=== PATIENT | female | born 1945 | race Caucasian/White ===

== ENCOUNTER 2018-07-30 16:07 | Inpatient (IN) | payer MEDICARE ==
[~2018-07-30] VITALS: Ht 157.5 cm; Wt 44.7 kg
[2018-07-30] MEDS ORDERED: SODIUM CHLORIDE 0.9% 500ML 500 ML IV STA (16:16)
[2018-07-30 16:31] LABS: BASOPHILS % 0.1 % (0.0-1.0); HEMATOCRIT 32.7 % (34.2-44.1); HEMOGLOBIN 10.8 g/dL (12.0-16.0); LYMPHOCYTES # (AUTO) 0.3 (1.0-3.2); MEAN CORPUSCULAR HEMOGLOBIN 26.6 pg (28-32); MEAN CORPUSCULAR VOLUME 80.5 fL (81-99); MONOCYTES # (AUTO) 0.5 (0.2-0.8); MONOCYTES % 5.3 % (4.4-11.3); NEUTROPHILS # (AUTO) 7.8 (2.1-6.9); NEUTROPHILS % 90.9 % (38.7-80.0); PLATELET COUNT 376 x10e3/uL (140-360); RED BLOOD COUNT 4.06 x10e6/uL (3.6-5.1); RED CELL DISTRIBUTION WIDTH 14.6 % (11.7-14.4)
[2018-07-30] MEDS ORDERED: SODIUM CHLORIDE 0.9% 1000ML 1,000 ML ONE (16:36)
[2018-07-30] MEDS ORDERED: ONDANSETRON ODT8 MG PO (16:40)
[2018-07-30] MEDS ORDERED: CILOSTAZOL100 MG PO ×2 (16:40→18:47)
[2018-07-30] MEDS ORDERED: LISINOPRIL10 MG PO (16:40)
[2018-07-30] MEDS ORDERED: TIZANIDINE HCL4 M1 PO (16:40)
[2018-07-30] MEDS ORDERED: TYLENOL WITH C1 EACH PO (16:40)
[2018-07-30] MEDS ORDERED: SIMVASTATIN20 MG PO (16:40)
[2018-07-30] MEDS ORDERED: ULTRAM50 MG PO (16:40)
[2018-07-30] MEDS ORDERED: ALENDRONATE SOD70 MG PO (16:40)
[2018-07-30] MEDS ORDERED: IBUPROFEN400 MG PO (16:40)
[2018-07-30] MEDS ORDERED: SODIUM CHLORIDE 0.9% 1000ML 1,000 ML IV STA (16:41)
--- NOTE | 2018-07-30 16:43 | NUR ---
PT DIAPER SOILED, PASTY GREEN DARK STOOL, FOUL SMELL NOTED. STOOL INTO LABIA AND VAGINAL VAULT. PT CLEANED THROUGHLY AND CLEAN DIAPER PLACED.
[2018-07-30 16:56] LABS: INR 0.96; PROTHROMBIN TIME 13.3 seconds (11.9-14.5)
[2018-07-30 16:57] LABS: PARTIAL THROMBOPLASTIN TIME 35.6 seconds (23.8-35.5)
[2018-07-30 16:59] LABS: ALANINE AMINOTRANSFERASE 15 IU/L (0-55); ALBUMIN 2.8 g/dL (3.5-5.0); ALBUMIN/GLOBULIN RATIO 0.7 (0.8-2.0); ALKALINE PHOSPHATASE 108 IU/L (40-150); ANION GAP 18.6 mmol/L (8-16); BLOOD UREA NITROGEN 16 mg/dL (7-26); BUN/CREATININE RATIO 19 (6-25); CALCIUM 10.6 mg/dL (8.4-10.2); CARBON DIOXIDE 28 mmol/L (22-29); CHLORIDE 91 mmol/L (98-107); CREATINE KINASE 22 IU/L (29-168); CREATININE, SERUM 0.86 mg/dL (0.57-1.11); EST GLOMERULAR FILTRATION RATE > 60 ML/MIN (60-); GLUCOSE 246 mg/dL (74-118); MAGNESIUM 1.6 MG/DL (1.3-2.1); POTASSIUM 3.6 mmol/L (3.5-5.1); SODIUM 134 mmol/L (136-145)
[2018-07-30 17:09] LABS: B-TYPE NATRIURETIC PEPTIDE2 1253.7 pg/mL (0-100)
[2018-07-30 17:19] LABS: THYROID STIMULATING HORMONE 0.652 uIU/mL (0.350-4.940)
[2018-07-30] MEDS ORDERED: MEROPENEM 1GM 100 ML IV ONE (17:30)
--- NOTE | 2018-07-30 17:35 | NUR ---
SCANT URINE RETURN; PLACE VERIFIED. MD AWARE. PER MD SALINAS TO STAY FOR ACCURATE OUTPUT R/O RENAL FAILURE. ALSO, NEED FOR UA SPECIMEN. STERILE PROCEDURE PER PROTOCOL WITH 2 RNS.
[2018-07-30 17:55] LABS: MONOCYTES % (MANUAL) 7 % (3.4-9.0); NEUTROPHILS % (MANUAL) 92 % (40-74); PROMYELOCYTES % (MANUAL) 1 % (0-0)
[2018-07-30 17:56] LABS: HYPOCHROMASIA SLIGHT
[2018-07-30 17:57] LABS: PLATELET ESTIMATE ADEQUATE; PLATELET MORPHOLOGY COMMENT FEW LARGE
[2018-07-30] MEDS ORDERED: VANCOMYCIN 1GM/NS 250 ML 250 ML IV ONE (18:00)
[2018-07-30 18:18] LABS: BILIRUBIN,URINE NEGATIVE (NEGATIVE); CLARITY,URINE CLEAR (CLEAR); COLOR,URINE YELLOW (YELLOW); KETONES,URINE NEGATIVE (NEGATIVE); LEUKOCYTE ESTERASE ,URINE NEGATIVE (NEGATIVE); NITRITE,URINE NEGATIVE (NEGATIVE); PROTEIN,URINE DIPSTICK 1+ (NEGATIVE); URINE UROBILINOGEN 0.2 mg/dL (0.2 - 1)
--- NOTE | 2018-07-30 18:18 | Diagnostic Imaging Report ---
A single frontal view of the chest. HISTORY: Altered mental status, high blood pressure COMPARISON: None available. DISCUSSION: Portable technique, limits sensitivity of the exam. Overlying monitoring leads and tubing. Tubes/Lines: None Lungs and pleura: Diffuse heterogeneously increased interstitial and airspace opacities. Trace blunting the left costophrenic angle and bilateral lower thoraces mild confluent opacities. Heart and mediastinum: The cardiac silhouette and central pulmonary vasculature appear mildly enlarged. Bones and soft tissues: Appear unremarkable, given this limited exam. IMPRESSION: Diffuse bilateral increased interstitial and airspace opacities, considerations include moderate pulmonary edema versus multifocal pneumonia. Signed by: Dr. Pradeep Alfaro D.O., M.M.M. on 07/30/2018 6:15 PM
--- NOTE | 2018-07-30 18:36 | Diagnostic Imaging Report ---
History:Patient very altered, confused. Comparison studies:None Technique: Axial images were obtained from the skull base to the vertex. Coronal and sagittal images reconstructed from the axial data. Intravenous contrast: None Dose modulation, iterative reconstruction, and/or weight based adjustment of the mA/kV was utilized to reduce the radiation dose to as low as reasonably achievable. Findings: Scalp/skull: No abnormalities. Extra-axial spaces: No masses. No fluid collections. Mild dural thickening at the right frontoparietal convexity.. Brain sulci: Mildly prominent. Ventricles: Moderately compensatory dilatation. No hydrocephalus. Parenchyma: Scattered and confluent hypodensities in the supratentorial white matter are small vessel ischemic changes. No masses, hemorrhage, acute or chronic cortical vascular insults. Sellar/suprasellar region: No abnormalities. Craniocervical junction: Patent foramen magnum. No Chiari one malformation. Incidental findings: Atherosclerotic calcifications in the carotid siphons . Impression: No acute abnormalities. Chronic findings: 1. Moderate central volume loss. 2. Moderate supratentorial white matter small vessel ischemic changes. Signed by: DR Kaden Aragon M.D. on 07/30/2018 6:33 PM
[2018-07-30 18:40] LABS: BACTERIA,URINE MODERATE /HPF; EPITHELIAL CELLS,URINE MODERATE /LPF; RBC,URINE 21-50 /HPF (0-5); TRANSITIONAL EPI CELLS,URINE FEW
[2018-07-30] MEDS ORDERED: ACETAMINOPHEN325 M1 PO (18:47)
[2018-07-30] MEDS ORDERED: VITAMIN D32000 UNI1 PO (18:47)
[2018-07-30] MEDS ORDERED: METOPROLOL TART50 MG PO (18:47)
[2018-07-30] MEDS ORDERED: MESTINON60 MG PO (18:47)
[2018-07-30] MEDS ORDERED: CYPROHEPTADINE H4 MG (18:47)
[2018-07-30] MEDS ORDERED: SODIUM CHLORIDE 0.9% 1000ML 1,000 ML IV SCH (18:55)
[2018-07-30] MEDS ORDERED: VANCOMYCIN HCL 1GM/NS 250 ML BAG IV SCH (19:00)
[2018-07-30] MEDS ORDERED: FUROSEMIDE INJ 10 MG/ML 4 ML VIAL IV NR (19:00)
--- NOTE | 2018-07-30 19:21 | NUR ---
PT CLEANED AGAIN OF DARK,SLIGHTLY FORMED STOOL. LASIX GIVEN AND VANCOMYCIN INFUSING WITH NO PROBLEM. DAUGHTER AT [facility]
--- OUTSIDE RECORDS SUMMARY | 2018-07-30 19:22 | XMS REPORT | Continuity of Care Document ---
Author Author [facility] Address [address] [place] [address] ;ext= Care Team Providers Care Abstract Maker Name Role Phone AUBRIE RONDON [facility] Admission Diagnosis Code Admission Diagnosis Date 13064457 Weakness of face muscles Social History Element Description Code Description Smoking Status Code System Start Date End Date Smoking Status 280127438 Never smoker SNOMED-CT Problems Code Code System Problem Name Start Date End Date Status 143903532 SNOMED-CT Weakness of right facial muscle 04/19/2018 Active General Weakness 2018 Active 770207501 SNOMED-CT Shoulder strain 09/23/2016 Active 55644861 SNOMED-CT Shoulder pain 09/23/2016 Active Medications RxNorm Medication Dose Route Instructions Indications Start Date End Date Status 134329 Acetaminophen 300 MG / Codeine Phosphate 30 MG Oral Tablet 1 tablet oral orally every 6 hours as needed. pain Active 2418 Cholecalciferol 2000 unit oral orally every day Active 897785 cilostazol 100 MG Oral Tablet 100 milligram oral orally 2 times per day (administer at least 30 minutes before or 2 hours after breakfast and dinner) Active 249857 Lisinopril 20 MG Oral Tablet 20 milligram oral orally every day Active 43375 meloxicam 7.5 milligram oral orally every day Active 16895 Ondansetron 4 milligram oral orally every 6 to 8 hours as needed. nausea and vomiting Active One-A-Day Calcium Plus Chewable Tablet 1 tablet oral orally every day Active SIMVASTATIN 20 MG ORAL ORAL EVERY NIGHT AT BED TIME Active Tizanidine Oral 4 milligram oral orally 3 times per day as needed. muscle spasticity Active 209200 tramadol hydrochloride 50 MG Oral Tablet 50 milligram oral orally every 8 hours as needed. (as needed for pain) No Longer Active Allergies Code Code System Allergy Substance Type Reaction Severity Start Date End Date Status RXNorm No Known Drug Allergies Drug allergy Unknown 09/23/2016 04/19/2018 Inactive RXNorm No Known Allergies Drug allergy Active Results Laboratory Results Order: UA URINALYSIS WITH MICROSCOPY Specimen Source: URINE SPECIMENS Body Site: [facility] Test Result Flag Range Unit Date 57786 1Color:Type:Pt:Urine:Nom LT. YELLOW 04/19/2018 14:38 5767-9 1Appearance:Aper:Pt:Urine:Nom CLEAR 04/19/2018 14:38 2349-9 1Glucose:ACnc:Pt:Urine:Ord NEGATIVE NEGATIVE 04/19/2018 14:38 5770-3 1Bilirubin:ACnc:Pt:Urine:Ord:Test strip NEGATIVE NEGATIVE 04/19/2018 14:38 2514-8 1Ketones:ACnc:Pt:Urine:Ord:Test strip NEGATIVE NEGATIVE 04/19/2018 14:38 5811-5 1Specific gravity:Rden:Pt:Urine:Qn:Test strip 1.010 A 1.005-1.030 04/19/2018 14:38 5794-3 1Hemoglobin:ACnc:Pt:Urine:Ord:Test strip TRACE-INTACT A NEGATIVE 04/19/2018 14:38 5803-2 1pH:LsCnc:Pt:Urine:Qn:Test strip 6.0 A 4.5-8.0 04/19/2018 14:38 98557-3 1Protein:ACnc:Pt:Urine:Ord:Test strip NEGATIVE NEGATIVE 04/19/2018 14:38 5818-0 1Urobilinogen:ACnc:Pt:Urine:Ord:Test strip 0.2 0.2 04/19/2018 14:38 5802-4 1Nitrite:ACnc:Pt:Urine:Ord:Test strip NEGATIVE NEGATIVE 04/19/2018 14:38 5799-2 1Leukocyte esterase:ACnc:Pt:Urine:Ord:Test strip NEGATIVE NEGATIVE 04/19/2018 14:38 5821-4 1Leukocytes:Naric:Pt:Urine sed:Qn:Microscopy.light.HPF 2-5 A 0-5 04/19/2018 14:38 52900-3 1Erythrocytes:Naric:Pt:Urine sed:Qn:Microscopy.light.HPF 0-3 A 0-5 04/19/2018 14:38 08584-1 1Epithelial cells.squamous:Naric:Pt:Urine sed:Qn:Microscopy.light.HPF 0-5 A 0-10 04/19/2018 14:38 8247-9 1Mucus:ACnc:Pt:Urine sed:Ord:Microscopy.light Trace A None Seen 04/19/2018 14:38 5769-5 1Bacteria:Naric:Pt:Urine sed:Qn:Microscopy.light.HPF Trace None Seen,Trace 04/19/2018 14:38 5782-8 1Crystals:Prid:Pt:Urine sed:Nom:Microscopy.light None Seen None Seen 04/19/2018 14:38 * Performing Lab Footnotes:* [address] [place] [address] [id number] - [place] [address] LAMONT - : DIRECTOR MARGARET PADILLA Order: CBC PLATELET AUTO DIFF Specimen Source: BLOOD Body Site: LOINC Test Result Flag Range Unit Date 40848-5 1Leukocytes^^corrected for nucleated erythrocytes:NCnc:Pt:Bld:Qn:Automated count 6.99 4.80-10.80 10^3/ul 04/19/2018 14:16 789-8 1Erythrocytes:NCnc:Pt:Bld:Qn:Automated count 3.07 L 4.20-5.40 10^6/ul 04/19/2018 14:16 718-7 1Hemoglobin:MCnc:Pt:Bld:Qn 8.7 L 12.0-14.0 gm/dl 04/19/2018 14:16 4544-3 1Hematocrit:VFr:Pt:Bld:Qn:Automated count 26 L 37.0-47.0 % 04/19/2018 14:16 787-2 1Erythrocyte mean corpuscular volume:EntVol:Pt:RBC:Qn:Automated count 84.7 81.0-99.0 fL 04/19/2018 14:16 785-6 1Erythrocyte mean corpuscular hemoglobin:EntMass:Pt:RBC:Qn:Automated count 28.3 27.0-31.0 pg 04/19/2018 14:16 786-4 1Erythrocyte mean corpuscular hemoglobin concentration:MCnc:Pt:RBC:Qn:Automated count 33.5 33.0-37.0 gm/dl 04/19/2018 14:16 788-0 1Erythrocyte distribution width:Ratio:Pt:RBC:Qn:Automated count 14.5 11.5-14.5 % 04/19/2018 14:16 777-3 1Platelets:NCnc:Pt:Bld:Qn:Automated count 429 H 130-400 10^3/ul 04/19/2018 14:16 48859-4 1Platelet mean volume:EntVol:Pt:Bld:Qn:Automated count 8.0 A 7.4-10.4 fL 04/19/2018 14:16 Note: 'NOT MEASURED' RESULTS ARE DISPLAYED WHEN THE INSTRUMENT HAS A SUPPRESSED OR UNREPORTABLE RESULT. THIS WILL MOST OFTEN HAPPEN WITH THE MPV WHEN THERE IS AN ABNORMAL PLATELET DISTRIBUTION DUE TO A CRITICAL LOW VALUE OR PLATELET CLUMPING. THE RDW MAY BE SUPPRESSED IF THERE ARE MULTIPLE PEAKS PRESENT ON THE RBC HISTOGRAM. IN THIS CASE, A MANUAL REVIEW OF THE SLIDE WILL BE PERFORMED, AND RBC MORPHOLOGY WILL BE NOTED ON THE REPORT. 770-8 1Neutrophils/100 leukocytes:NFr:Pt:Bld:Qn:Automated count 71.7 42.0-75.0 % 04/19/2018 14:16 736-9 1Lymphocytes/100 leukocytes:NFr:Pt:Bld:Qn:Automated count 15.6 13.0-42.0 % 04/19/2018 14:16 5905-5 1Monocytes/100 leukocytes:NFr:Pt:Bld:Qn:Automated count 10.9 4.0-14.0 % 04/19/2018 14:16 713-8 1Eosinophils/100 leukocytes:NFr:Pt:Bld:Qn:Automated count 0.4 L 1.0-5.0 % 04/19/2018 14:16 706-2 1Basophils/100 leukocytes:NFr:Pt:Bld:Qn:Automated count 0.3 0.0-3.0 % 04/19/2018 14:16 1IG% 1.1 H 0.0-0.4 % 04/19/2018 14:16 * Performing Lab Footnotes:* [facility] [id number] [address] - : DIRECTOR MARGARET PADILLA Order: CMP COMPREHENSIVE METABOLIC PANEL Specimen Source: BLOOD Body Site: LOINC Test Result Flag Range Unit Date 1Glucose 104 75-110 mg/dl 04/19/2018 14:16 1BUN 19 H 6.0-17.0 mg/dl 04/19/2018 14:16 1Creatinine 1.2 0.4-1.2 mg/dl 04/19/2018 14:16 1Sodium 128 L 137-145 mmol/l 04/19/2018 14:16 1Potassium 4.1 3.5-5.0 mmol/l 04/19/2018 14:16 1Chloride 93 L 98-107 mmol/l 04/19/2018 14:16 1CO2 30 22-30 mmol/l 04/19/2018 14:16 1Calcium 9.1 8.4-10.2 mg/dl 04/19/2018 14:16 1T Protein 6.9 5.1-8.7 gm/dl 04/19/2018 14:16 1Albumin 2.8 L 3.5-4.6 gm/dl 04/19/2018 14:16 1A/G Ratio 0.7 L 1.1-2.2 % 04/19/2018 14:16 1AST (SGOT) 15 11-36 U/L 04/19/2018 14:16 1ALT (SGPT) 19 11-40 U/L 04/19/2018 14:16 1Alkaline Phos 95 47-114 U/L 04/19/2018 14:16 1Total Bilirubin 0.4 0.2-1.2 mg/dl 04/19/2018 14:16 1Globulin 4.1 H 2.3-3.5 gm/dl 04/19/2018 14:16 1Calcium, Corrected 10.1 8.4-10.2 mg/dl 04/19/2018 14:16 Note: Various formulas exist for corrected serum calcium results, each yielding different values. This corrected result was based on the formula: Corrected Calcium=SerumCalcium + [0.8 * ( 4 - SerumAlbumin)] 1EGFR if 57 mL/min/1.73m^2 04/19/2018 14:16 1EGFR if Non- 47 mL/min/1.73m^2 04/19/2018 14:16 Note: Estimated Glomerular Filtration Rate (eGFR) Reference Intervals Decision Points for 18 years and older and average body mass: >=60 Does not exclude kidney disease. 30 - 59 Suggests moderate chronic kidney disease and indicates the need for further investigation including assessment of proteinuria and cardiovascular factors. < 30 Usually indicates a need for referral for assessment and management of chronic kidney failure. * Performing Lab Footnotes:* [address] [place] [address] - [id number] - [address] [place] [address] LAMONT - : DIRECTOR MARGARET PADILLA Order: PRO BNP B - NATRIURETIC PEPTIDE Specimen Source: BLOOD Body Site: LOINC Test Result Flag Range Unit Date 1Pro-BNP(B-Peptide) 671 H 0-125 pg/ml 04/19/2018 14:16 * Performing Lab Footnotes:* [address] [place] [address] [id number] - [address] [place] [address] LAMONT Molina MD: DIRECTOR MARGARET PADILLA Order: PROTIME PT INR Specimen Source: BLOOD Body Site: LOINC Test Result Flag Range Unit Date 1Protime 10.3 9.0-11.8 seconds 04/19/2018 14:16 6301-6 1Coagulation tissue factor induced.INR:RelTime:Pt:PPP:Qn:Coag 1 0.9-1.1 04/19/2018 14:16 Note: INR results are intended ONLY to monitor Oral Anticoagulant therapy in stablized patients. The INR Therapeutic Range is 2.0 - 3.0 Patients with a mechanical heart, the INR Range is 2.5 - 3.5 * Performing Lab Footnotes:* [address] [place] [address] [id number] - [address] [place] [address] LAMONT Molina MD: DIRECTOR MARGARET PADILLA Order: PTT PARTIAL THROMBOPLASTIN TM Specimen Source: BLOOD Body Site: LOINC Test Result Flag Range Unit Date 1aPTT 31.7 25.3-35.7 seconds 04/19/2018 14:16 * Performing Lab Footnotes:* [facility] [id number] [place] [address] LAMONT Molina MD: DIRECTOR MARGARET PADILLA Order: TROPONIN I QUANTITATIVE Specimen Source: BLOOD Body Site: LOINC Test Result Flag Range Unit Date 1Troponin-I <0.015 0.000-0.034 ng/ml 04/19/2018 14:16 Note: The 99th Percentile URL is 0.045 ng/mL for the Siemens Douglas Troponin I. The Joint Society of Cardiology/[place] College of Cardiology (ESC/ACC) and the National Academy of Clinical Biochemistry Standards of Laboratory Practices (NACB) recommends that the diagnosis of AMI includes the presence of clinical history suggestive of Acute Coronary Syndrome (ACS) and a maximum concentration of cardiac troponin exceeding the 99th percentile of a normal reference population [upper reference limit (URL)] on at least one occasion during the first 24 hours after the clinical event. * Performing Lab Footnotes:* [address] [place], [place] [id number] [place] [address] LAMONT Molina MD: DIRECTOR MARGARET PADILLA Radiology Results Order: [id number] CT HEAD W/O CONTRAST* Exam Completion Date:04/19/2018 13:50 CT HEAD WITHOUT CONTRAST:DATE OF EXAM: 04/19/2018INDICATION: Weakness of face mus clesNoncontrast CT head was performed. Dose reduction technique was employed usi ngautomated exposure control and adjustment of mA and/or kV according to patient size. Total DLP 856 mGy-cm.FINDINGS:No intracranial hemorrhage, mass effect or midline shift is identified. Corticalatrophy is noted with associated mild compe nsatory ventricular dilatation. Thereis no obstructive hydrocephalus. A small ch ronic appearing lacunar infarct inthe anterior limb right internal capsule is in cidentally noted. There are nodefinite acute ischemic changes identified. If sym ptoms persist, considerfollowup CT or MRI.There is confluent hypodensity in the periventricular and subcortical whitematter which is nonspecific but may reflect changes of chronic microvasculardisease.The visualized portions of the mastoids, paranasal sinuses and orbits show nosignificant abnormality. Hyperostosis fron talis interna may account for thefindings on bone scan.IMPRESSION:1. No acute in tracranial abnormality.2. Atrophic changes as noted with probable changes of chr onic microvasculardisease in the white matter.3. Small chronic appearing lacunar infarct in the right internal capsule.This final report was electronically sign ed by Dr Lucinda Baker MD 04/19/20182:16 PMDictated By: LUCINDA BAKERDate: 04/19/2018 14:16 Order: [id number] XR CHEST AP/PA 1 VIEW* Exam Completion Date:04/19/2018 13:50 Portable chest April 19, 2018 at 1416 hrs. History: Altered mental statusCompa red to 2018. Subsegmental atelectasis is again noted in theleft lung base. The lungs otherwise appear clear. Cardiac size is within normallimits. Th ere are no acute bony abnormalities.Impression: Minimal left basilar atelectasis .This final report was electronically signed by Dr Lucinda Baker MD 04/19/20183 :27 PMDictated By: LUCINDA BAKERDate: 04/19/2018 15:27 Vital Signs Vitals Value Date Pulse Rate 95 (beats)/min 04/19/2018 Respiratory Rate 19 (breaths)/min 04/19/2018 O2% BldC Oximetry 93 % 04/19/2018 BP Systolic 127 mmHg 04/19/2018 BP Diastolic 55 mmHg 04/19/2018 Body Temperature 98.6 F 04/19/2018 Height 62 in 04/19/2018 Weight Measured 115 lbs 04/19/2018 BSA (Body Surface Area) 1.58076 m2 04/19/2018 BMI (Body Mass Index) 21.1 kg/m2 04/19/2018 Advance Directives PT HAS NEITHER Directive Type Effective Date Email Marketer Notes Supporting Document Name Address Phone No Directive Type specified 06/03/2012 21:27 Not Specified Not Specified Not Specified None No Patient does NOT have Living Will Directive Type Effective Date Email Marketer Notes Supporting Document Name Address Phone No Directive Type specified 08/27/2014 08:12 Not Specified Not Specified Not Specified None No No Directive Type specified 08/27/2014 08:12 Not Specified Not Specified Not Specified None No Patient HAS Living Will Directive Type Effective Date Email Marketer Notes Supporting Document Name Address Phone No Directive Type specified 12/29/2017 09:53 Not Specified Not Specified Not Specified None No Family History * No Data Reported Plan of Care * No data in the system Procedures Code Code System Procedure Name Target Site Date of Procedure XR CHEST AP/PA 1 VIEW 04/19/2018 15:34 CT HEAD W/O CONTRAST 04/19/2018 14:22 Encounters Date Code Diagnosis Status (ICD10) - O65114 FACIAL WEAKNESS Active Immunizations Vaccine Code Code System Vaccine Name Date Status 135 CVX influenza, high dose seasonal, preservative-free 01/04/2018 Completed 133 CVX pneumococcal conjugate vaccine, 13 valent 01/15/2016 Completed Functional Status * No data in the system Hospital Discharge Instructions * No data in the system
--- OUTSIDE RECORDS SUMMARY | 2018-07-30 19:22 | XMS REPORT | Continuity of Care Document ---
Author Author [facility] Address [address] [place] [address] ;ext= Care Team Providers Care Flight Control Specialist Name Role Phone FRANCO VAZQUEZ Ad[facility] FRANCO VAZQUEZ [facility] Admission Diagnosis Code Admission Diagnosis Date 342697560 Low back pain Social History Element Description Code Description Smoking Status Code System Start Date End Date Smoking Status [id number] Heavy tobacco smoker SNOMED-CT Problems Code Code System Problem Name Start Date End Date Status 853072612 SNOMED-CT Weakness of right facial muscle 04/19/2018 Active General Weakness 2018 Active 172937650 SNOMED-CT Shoulder strain 09/23/2016 Active 82482502 SNOMED-CT Shoulder pain 09/23/2016 Active Medications RxNorm Medication Dose Route Instructions Indications Start Date End Date Status 106577 Acetaminophen 300 MG / Codeine Phosphate 30 MG Oral Tablet 1 tablet oral orally every 6 hours as needed. pain Active 2418 Cholecalciferol 2000 unit oral orally every day Active 302643 cilostazol 100 MG Oral Tablet 100 milligram oral orally 2 times per day (administer at least 30 minutes before or 2 hours after breakfast and dinner) Active 607423 Lisinopril 20 MG Oral Tablet 20 milligram oral orally every day Active 12635 meloxicam 7.5 milligram oral orally every day Active 33275 Ondansetron 4 milligram oral orally every 6 to 8 hours as needed. nausea and vomiting Active One-A-Day Calcium Plus Chewable Tablet 1 tablet oral orally every day Active SIMVASTATIN 20 MG ORAL ORAL EVERY NIGHT AT BED TIME Active Tizanidine Oral 4 milligram oral orally 3 times per day as needed. muscle spasticity Active Allergies Code Code System Allergy Substance Type Reaction Severity Start Date End Date Status RXNorm No Known Drug Allergies Drug allergy Unknown 09/23/2016 04/19/2018 Inactive RXNorm No Known Allergies Drug allergy Active Results Radiology Results Order: [id number] NM BONE SCAN WHOLE BODY* Exam Completion Date:04/19/2018 13:30 Whole body bone scan:History: Low back painA whole-body bone scan was performed following intravenous injection of 26.0 mCiof technetium 99m MDP.There is bandli ke increased activity in the mid lumbar region corresponding francisco L3 compression fracture noted on plain films dated April 05, 2018.Increased activity is pres ent in the left humeral head. Review of the chestx-ray from 2018 noel ws lucency in the medial aspect of the lefthumeral head. The possibility of neop lasm is not excluded.There is increased activity noted in the frontal calvarium which appears tocorrespond to hyperostosis frontalis interna when correlated wit h CT head fromthe same day. Slightly increased activity in the right hip may ref lectdegenerative changes but can be correlated with plain films.Physiologic acti vity is present in the kidneys and bladder.Impression:1. Compression fracture of L3 corresponding to findings on recent lumbar spineexamination.2. Activity in t he left humeral head with asymmetric lucency noted on plain filmexamination. Adryan plasm is not excluded. Consider followup MRI of the shoulderwith attention to th e humerus.3. Other findings as detailed above.This final report was electronical ly signed by Dr Lucinda Hartley MD 04/19/20184:29 PMDictated By: LUCINDA HARTLEY Date: 04/19/2018 16:29 Order: [id number] XR LUMBAR SPINE (AP/LATERAL)* Exam Completion Date:04/19/2018 13:23 Lumbar spine AP lateral, 3 views:History: Low back painAP, lateral and spot late ral views were obtained. Comparison is made to 2018.There is a stable compression fracture of the L3 vertebral body. No newcompression fracture is id entified. There is stable grade 1 spondylolisthesis atL4-5 again noted. There is generalized osteopenia. A very mild levoscoliosis isagain present. Findings are stable compared to the recent examination.Impression: No significant interval c hange.This final report was electronically [place] [address]:56 AMDictated By: LUCINDA HARTLEYDate: 04/20/2018 07:56 Vital Signs * No data in the system Advance Directives PT HAS NEITHER Directive Type Effective Date Home Paraprofessional Notes Supporting Document Name Address Phone No Directive Type specified 06/03/2012 21:27 Not Specified Not Specified Not Specified None No Patient does NOT have Living Will Directive Type Effective Date Home Paraprofessional Notes Supporting Document Name Address Phone No Directive Type specified 08/27/2014 08:12 Not Specified Not Specified Not Specified None No No Directive Type specified 08/27/2014 08:12 Not Specified Not Specified Not Specified None No Patient HAS Living Will Directive Type Effective Date Home Paraprofessional Notes Supporting Document Name Address Phone No Directive Type specified 12/29/2017 09:53 Not Specified Not Specified Not Specified None No Family History * No Data Reported Plan of Care * No data in the system Procedures Code Code System Procedure Name Target Site Date of Procedure XR LUMBAR SPINE (AP/LATERAL) 04/20/2018 08:02 NM BONE SCAN WHOLE BODY 04/19/2018 16:35 Encounters Date Code Diagnosis Status (ICD10) - M545 LOW BACK PAIN Active Immunizations Vaccine Code Code System Vaccine Name Date Status 135 CVX influenza, high dose seasonal, preservative-free 01/04/2018 Completed 133 CVX pneumococcal conjugate vaccine, 13 valent 01/15/2016 Completed Functional Status * No data in the system Hospital Discharge Instructions * No data in the system
--- OUTSIDE RECORDS SUMMARY | 2018-07-30 19:22 | XMS REPORT | Continuity of Care Document ---
Author Author [facility] Address [address] [place] [address] ;ext= Care Team Providers Care Cafe Assistant Name Role Phone FRANCO VAZQUEZ Admyosis FRANCO VAZQUEZ [facility] Admission Diagnosis Code Admission Diagnosis Date [id number] Closed fracture lumbar vertebra, wedge Social History Element Description Code Description Smoking Status Code System Start Date End Date Smoking Status [id number] Former smoker SNOMED-CT 03/2018 Problems Code Code System Problem Name Start Date End Date Status 481059972 SNOMED-CT Weakness of right facial muscle 04/19/2018 Active General Weakness 2018 Active 382975487 SNOMED-CT Anemia 2019 Active 33521194 SNOMED-CT Nausea and vomiting 02/2018 Active 098698480 SNOMED-CT Backache 2018 Active 966151363 SNOMED-CT Shoulder strain 09/23/2016 Active 10396277 SNOMED-CT Shoulder pain 09/23/2016 Active 1342631 SNOMED-CT Arthritis Unknown Active 68727179 SNOMED-CT Hypertensive disorder Unknown Active Medications RxNorm Medication Dose Route Instructions Indications Start Date End Date Status 2418 Cholecalciferol 2000 unit oral orally every day Active 305076 cilostazol 100 MG Oral Tablet 100 milligram oral orally 2 times per day (administer at least 30 minutes before or 2 hours after breakfast and dinner) Active Iron oral orally every day Active 509752 Lisinopril 20 MG Oral Tablet 20 milligram oral orally every day Active SIMVASTATIN 20 MG ORAL ORAL EVERY NIGHT AT BED TIME Active Allergies Code Code System Allergy Substance Type Reaction Severity Start Date End Date Status RXNorm No Known Drug Allergies Drug allergy Unknown 09/23/2016 04/19/2018 Inactive RXNorm No Known Allergies Drug allergy Active Results Laboratory Results Order: BMP BASIC METABOLIC PANEL Specimen Source: BLOOD Body Site: [facility] Test Result Flag Range Unit Date 1Glucose 119 H 75-110 mg/dl 05/04/2018 09:16 1BUN 34 H 6.0-17.0 mg/dl 05/04/2018 09:16 1Creatinine 1.3 H 0.4-1.2 mg/dl 05/04/2018 09:16 1Sodium 131 L 137-145 mmol/l 05/04/2018 09:16 1Potassium 4.5 3.5-5.0 mmol/l 05/04/2018 09:16 1Chloride 92 L 98-107 mmol/l 05/04/2018 09:16 1CO2 30 22-30 mmol/l 05/04/2018 09:16 1Calcium 9.8 8.4-10.2 mg/dl 05/04/2018 09:16 1EGFR if 52 mL/min/1.73m^2 05/04/2018 09:16 1EGFR if Non- 43 mL/min/1.73m^2 05/04/2018 09:16 Note: Estimated Glomerular Filtration Rate (eGFR) Reference [...] chronic kidney failure. * Performing Lab Footnotes:* [address] [place] [address] - [id number] - [facility] [address] - : DIRECTOR MARGARET PADILLA Order: CBC PLATELET AUTO DIFF Specimen Source: BLOOD Body Site: [facility] Test Result Flag Range Unit Date 79344-8 1Leukocytes^^corrected for nucleated erythrocytes:NCnc:Pt:Bld:Qn:Automated count 6.24 4.80-10.80 10^3/ul 05/04/2018 09:16 789-8 1Erythrocytes:NCnc:Pt:Bld:Qn:Automated count 2.91 L 4.20-5.40 10^6/ul 05/04/2018 09:16 718-7 1Hemoglobin:MCnc:Pt:Bld:Qn 8 L 12.0-14.0 gm/dl 05/04/2018 09:16 4544-3 1Hematocrit:VFr:Pt:Bld:Qn:Automated count 24.9 L 37.0-47.0 % 05/04/2018 09:16 787-2 1Erythrocyte mean corpuscular volume:EntVol:Pt:RBC:Qn:Automated count 85.6 81.0-99.0 fL 05/04/2018 09:16 785-6 1Erythrocyte mean corpuscular hemoglobin:EntMass:Pt:RBC:Qn:Automated count 27.5 27.0-31.0 pg 05/04/2018 09:16 786-4 1Erythrocyte mean corpuscular hemoglobin concentration:MCnc:Pt:RBC:Qn:Automated count 32.1 L 33.0-37.0 gm/dl 05/04/2018 09:16 788-0 1Erythrocyte distribution width:Ratio:Pt:RBC:Qn:Automated count 14.3 11.5-14.5 % 05/04/2018 09:16 777-3 1Platelets:NCnc:Pt:Bld:Qn:Automated count 412 H 130-400 10^3/ul 05/04/2018 09:16 91425-7 1Platelet mean volume:EntVol:Pt:Bld:Qn:Automated count 8.0 A 7.4-10.4 fL 05/04/2018 09:16 Note: 'NOT MEASURED' RESULTS ARE DISPLAYED WHEN [...] ON THE REPORT. 770-8 1Neutrophils/100 leukocytes:NFr:Pt:Bld:Qn:Automated count 75 42.0-75.0 % 05/04/2018 09:16 736-9 1Lymphocytes/100 leukocytes:NFr:Pt:Bld:Qn:Automated count 12.7 L 13.0-42.0 % 05/04/2018 09:16 5905-5 1Monocytes/100 leukocytes:NFr:Pt:Bld:Qn:Automated count 10.1 4.0-14.0 % 05/04/2018 09:16 713-8 1Eosinophils/100 leukocytes:NFr:Pt:Bld:Qn:Automated count 1.1 1.0-5.0 % 05/04/2018 09:16 706-2 1Basophils/100 leukocytes:NFr:Pt:Bld:Qn:Automated count 0.3 0.0-3.0 % 05/04/2018 09:16 1IG% 0.8 H 0.0-0.4 % 05/04/2018 09:16 * Performing Lab Footnotes:* [address] [place] [address] - [id number] - [address] [place] [address] - : DIRECTOR MARGARET PADILLA Order: CBC - HEMOGRAM ONLY Specimen Source: BLOOD Body Site: [facility] Test Result Flag Range Unit Date 1Leukocytes^^corrected for nucleated erythrocytes:NCnc:Pt:Bld:Qn:Automated count 6.62 4.80-10.80 10^3/ul 05/02/2018 10:20 789-8 1Erythrocytes:NCnc:Pt:Bld:Qn:Automated count 2.98 L 4.20-5.40 10^6/ul 05/02/2018 10:20 718-7 1Hemoglobin:MCnc:Pt:Bld:Qn 8.2 L 12.0-14.0 gm/dl 05/02/2018 10:20 4544-3 1Hematocrit:VFr:Pt:Bld:Qn:Automated count 25.5 L 37.0-47.0 % 05/02/2018 10:20 787-2 1Erythrocyte mean corpuscular volume:EntVol:Pt:RBC:Qn:Automated count 85.6 81.0-99.0 fL 05/02/2018 10:20 785-6 1Erythrocyte mean corpuscular hemoglobin:EntMass:Pt:RBC:Qn:Automated count 27.5 27.0-31.0 pg 05/02/2018 10:20 786-4 1Erythrocyte mean corpuscular hemoglobin concentration:MCnc:Pt:RBC:Qn:Automated count 32.2 L 33.0-37.0 gm/dl 05/02/2018 10:20 788-0 1Erythrocyte distribution width:Ratio:Pt:RBC:Qn:Automated count 14.3 11.5-14.5 % 05/02/2018 10:20 777-3 1Platelets:NCnc:Pt:Bld:Qn:Automated count 462 H 130-400 10^3/ul 05/02/2018 10:20 18825-0 1Platelet mean volume:EntVol:Pt:Bld:Qn:Automated count 8.5 A 7.4-10.4 fL 05/02/2018 10:20 Note: 'NOT MEASURED' RESULTS ARE DISPLAYED WHEN [...] MORPHOLOGY WILL BE NOTED ON THE REPORT. * Performing Lab Footnotes:* [facility] - [id number] - [address] [place] [address] [place] - MD: DIRECTOR MARGARET PADILLA Order: CMP COMPREHENSIVE METABOLIC PANEL Specimen Source: BLOOD Body Site: [facility] Test Result Flag Range Unit Date 1Glucose 128 H 74-106 mg/dl 05/02/2018 10:20 1BUN 30 H 7.0-18.0 mg/dl 05/02/2018 10:20 1Creatinine 1.3 0.5-1.3 mg/dl 05/02/2018 10:20 1Sodium 127 L 137-145 mmol/l 05/02/2018 10:20 1Potassium 4.2 3.5-5.1 mmol/l 05/02/2018 10:20 1Chloride 88 L 98-107 mmol/l 05/02/2018 10:20 1CO2 31 21-32 mmol/l 05/02/2018 10:20 1Calcium 9.6 8.5-10.1 mg/dl 05/02/2018 10:20 1T Protein 6.5 6.4-8.2 gm/dl 05/02/2018 10:20 1Albumin 2.7 L 3.4-5.0 gm/dl 05/02/2018 10:20 1A/G Ratio 0.7 L 1.1-2.2 % 05/02/2018 10:20 1AST (SGOT) 40 H 15-37 U/L 05/02/2018 10:20 1ALT (SGPT) 35 13-61 U/L 05/02/2018 10:20 1Alkaline Phos 119 H 45-117 U/L 05/02/2018 10:20 1Total Bilirubin 0.5 0.2-1.0 mg/dl 05/02/2018 10:20 1Globulin 3.8 H 2.3-3.5 gm/dl 05/02/2018 10:20 1Calcium, Corrected 10.6 H 8.4-10.2 mg/dl 05/02/2018 10:20 Note: Various formulas exist for corrected serum calcium results, each yielding different values. This corrected result was based on the formula: Corrected Calcium=SerumCalcium + [0.8 * ( 4 - SerumAlbumin)] 1EGFR if 52 mL/min/1.73m^2 05/02/2018 10:20 1EGFR if Non- 43 mL/min/1.73m^2 05/02/2018 10:20 Note: Estimated Glomerular Filtration Rate (eGFR) Reference [...] chronic kidney failure. * Performing Lab Footnotes:* [address] [place] [address] - [id number] [address] - MD: DIRECTOR MARGARET PADILLA Order: PROTIME PT INR Specimen Source: BLOOD Body Site: [facility] Test Result Flag Range Unit Date 1Protime 10.3 9.0-11.8 seconds 05/02/2018 10:20 6301-6 1Coagulation tissue factor induced.INR:RelTime:Pt:PPP:Qn:Coag 1 0.9-1.1 05/02/2018 10:20 Note: INR results are intended ONLY to monitor Oral Anticoagulant therapy in stablized patients. The INR Therapeutic Range is 2.0 - 3.0 Patients with a mechanical heart, the INR Range is 2.5 - 3.5 * Performing Lab Footnotes:* [address] [place], [place] [id number] [place] [address] LAMONT Molina MD: DIRECTOR MARGARET PADILLA Order: PTT PARTIAL THROMBOPLASTIN TM Specimen Source: BLOOD Body Site: [facility] Test Result Flag Range Unit Date 1aPTT 32.5 25.3-35.7 seconds 05/02/2018 10:20 * Performing Lab Footnotes:* [address] [place], [place] [id number] [place] [address] LAMONT Molina MD: DIRECTOR MARGARET PADILLA Order: URINALYSIS W/O MICROSCOPIC EXAM Specimen Source: URINE SPECIMENS Body Site: [facility] Test Result Flag Range Unit Date 5778-6 1Color:Type:Pt:Urine:Nom YELLOW 05/02/2018 10:20 5767-9 1Appearance:Aper:Pt:Urine:Nom CLEAR 05/02/2018 10:20 2349-9 1Glucose:ACnc:Pt:Urine:Ord NEGATIVE NEGATIVE 05/02/2018 10:20 5770-3 1Bilirubin:ACnc:Pt:Urine:Ord:Test strip NEGATIVE NEGATIVE 05/02/2018 10:20 2514-8 1Ketones:ACnc:Pt:Urine:Ord:Test strip NEGATIVE NEGATIVE 05/02/2018 10:20 5811-5 1Specific gravity:Rden:Pt:Urine:Qn:Test strip 1.020 A 1.005-1.030 05/02/2018 10:20 5794-3 1Hemoglobin:ACnc:Pt:Urine:Ord:Test strip TRACE-INTACT A NEGATIVE 05/02/2018 10:20 5803-2 1pH:LsCnc:Pt:Urine:Qn:Test strip 6.0 A 4.5-8.0 05/02/2018 10:20 57421-1 1Protein:ACnc:Pt:Urine:Ord:Test strip NEGATIVE NEGATIVE 05/02/2018 10:20 5818-0 1Urobilinogen:ACnc:Pt:Urine:Ord:Test strip 0.2 0.2 05/02/2018 10:20 5802-4 1Nitrite:ACnc:Pt:Urine:Ord:Test strip NEGATIVE NEGATIVE 05/02/2018 10:20 5799-2 1Leukocyte esterase:ACnc:Pt:Urine:Ord:Test strip TRACE A NEGATIVE 05/02/2018 10:20 * Performing Lab Footnotes:* [address] [place] [address] - [id number] - [address] [place] [address] - MD: DIRECTOR MARGARET PADILLA Radiology Results Order: [id number] XR CHEST 2 PA LATERAL* Exam Completion Date:05/02/2018 09:33 EXAMINATION: XR CHEST 2 PA LATERAL INDICATION: [id number]: Preoperative state COMPARISON: Chest x-ray April 19, 2018. FINDINGS: PA and lateral viewsT UBES and LINES: None.LUNGS: Lungs are well inflated. Biapical pleural parenchy mal scarring.Platelike atelectasis of left lung base. Lungs are otherwise clear. There isno evidence of pneumonia or pulmonary edema.PLEURA: No pleural effus ion or pneumothorax.HEART AND MEDIASTINUM: The cardiomediastinal silhouette is unremarkable. Thereare atherosclerotic calcifications within the aorta.BONES AND SOFT TISSUES: No acute osseous lesion. Soft tissues areunremarkable.UPPER ABD OMEN: No free air under the diaphragm. IMPRESSION: No acute thoracic abnormal ity.This final report was electronically signed by Dr Karthik Omer MD 05/02/2018 10:42 AMDictated By: DAVI OMERate: 05/02/2018 10:42 Vital Signs Vitals Value Date Pulse Rate 81 (beats)/min 05/04/2018 Respiratory Rate 15 (breaths)/min 05/04/2018 O2% BldC Oximetry 94 % 05/04/2018 BP Systolic 125 mmHg 05/04/2018 BP Diastolic 71 mmHg 05/04/2018 Body Temperature 97.6 F 05/04/2018 Height 62 in 05/04/2018 Weight Measured 115 lbs 05/04/2018 BSA (Body Surface Area) 1.14756 m2 05/04/2018 BMI (Body Mass Index) 21.1 kg/m2 05/04/2018 Advance Directives PT HAS NEITHER Directive Type Effective Date Is Technician Notes Supporting Document Name Address Phone No Directive Type specified 06/03/2012 21:27 Not Specified Not Specified Not Specified None No Patient does NOT have Living Will Directive Type Effective Date Is Technician Notes Supporting Document Name Address Phone No Directive Type specified 08/27/2014 08:12 Not Specified Not Specified Not Specified None No No Directive Type specified 08/27/2014 08:12 Not Specified Not Specified Not Specified None No Patient HAS Living Will Directive Type Effective Date Is Technician Notes Supporting Document Name Address Phone No Directive Type specified 12/29/2017 09:53 Not Specified Not Specified Not Specified None No Family History * No Data Reported Plan of Care * No data in the system Procedures Code Code System Procedure Name Target Site Date of Procedure FL PRT FLUORO UP TO 1 HR 05/04/2018 12:44 32194 CPT4 PERQ VERT AGMNTJ CAVITY CRTJ UNI/BI JONATHON 05/04/2018 XR CHEST 2 PA LATERAL 05/02/2018 10:49 968293314 SNOMED Hysterectomy 2014 30666708 SNOMED Colonoscopy 2013 643136937 SNOMED Excision of ganglion of wrist 2012 FOOT SURGERY 2002 361462633 SNOMED Bilateral tubal ligation 1971 BLADDER SUSPENSION Unknown 93030298451532060 SNOMED Bilateral extraction of cataracts Unknown Encounters Date Code Diagnosis Status (ICD10) - O75086E WEDGE COMPRS FX 3RD LV INIT NIKHIL FX Active Immunizations Vaccine Code Code System Vaccine Name Date Status 135 CVX influenza, high dose seasonal, preservative-free 01/04/2018 Completed 133 CVX pneumococcal conjugate vaccine, 13 valent 01/15/2016 Completed Functional Status * No data in the system Hospital Discharge Instructions * Discharge Instructions* Discharge Diagnosis* Kyphoplasty * Date/Time of Follow Up Appt #1* 05/23/2018 07:20 * Physician Name for Follow Up Appt #1* Dr Vazquez * Activity Level* Ambulate three times daily. Full weight bearing as tolerated. * No Driving * No Heavy Lifting * Resume daily activity gradually * Up With Assistance * Walk Daily * Other * Medications* Continue Present Medications * Prescriptions Called To Pharmacy * Diet* Regular * Discharge Instructions* Patient education provided * One Day Surgery Instructions * Follow Up Care* Yes * Scheduled Appointment * Discharge Instructions 2* Wound / Incision Care* Remove dressing in 48 hours, cleanse with hydrogen peroxide, apply large ban-aid, perform wound care daily until healed. * Incision * Other * Notify Surgeon if You Experience:* Increased warmth around surgical area * Redness or increased pain around surgical area * Red streaks coming from surgical area * Personal Belongings Returned To Patient/Family* N/A * Valuables Returned To Patient/Family* N/A * Pre-Admission Medications Returned To Patient/Family* N/A * Discharge Instructions Explained To* Patient * Relatives * PACU2* Report to your doctor/clinic for your check up on:* 05/23/2018 07:20 * Outpatient surgery done by* Dr Vazquez * Instructions for Follow-Up Care ALL PATIENTS* We are glad you have chosen our hospital for your out-patient surgery. * If complications arise after you return home, call your doctor immediately. * If the doctor can not be reached, RETURN TO THE EMERGENCY DEPARTMENT SOON POSSIBLE. * Have your prescriptions filled and follow the directions exactly how they are stated on the label. * Special Instructions* Return to ER or clinic if high fevers, chills, purulent drainage, numbness, tingling, worsening pain, swelling, chest pain, or shortness of breath occurs.
--- OUTSIDE RECORDS SUMMARY | 2018-07-30 19:22 | XMS REPORT | Continuity of Care Document ---
Author Author [facility] Organization [facility] Address [address] [place] [address] ;ext= Care Team Providers Care Securities Settlement Processor Name Role Phone DR YONY HAYWARD DR IRA CLOUD Attphys [facility] Hospital Admission Diagnosis * No data in the System Social History Element Description Code Description Smoking Status Code System Start Date End Date Smoking Status [id number] Never smoker SNOMED-CT Problems Code Code System Problem Name Start Date End Date Status 439401538 SNOMED-CT Weakness of right facial muscle 04/19/2018 Active General Weakness 2018 Active 166820938 SNOMED-CT Shoulder strain 09/23/2016 Active 54637169 SNOMED-CT Shoulder pain 09/23/2016 Active Medications RxNorm Medication Dose Route Instructions Indications Start Date End Date Status 027014 Acetaminophen 300 MG / Codeine Phosphate 30 MG Oral Tablet 1 tablet oral orally every 6 hours as needed. pain Active 2418 Cholecalciferol 2000 unit oral orally every day Active 749204 cilostazol 100 MG Oral Tablet 100 milligram oral orally 2 times per day (administer at least 30 minutes before or 2 hours after breakfast and dinner) Active 681378 Lisinopril 20 MG Oral Tablet 20 milligram oral orally every day Active 21808 meloxicam 7.5 milligram oral orally every day Active 14615 Ondansetron 4 milligram oral orally every 6 [...] Drug allergy Active Results Laboratory Results Order: CORONARY RISK Specimen Source: BLOOD Body Site: [facility] Test Result Flag Range Unit Date 1Triglycerides 116 0-149 mg/dl 04/20/2018 04:39 Note: Trig. Interpretation Guide: Normal: < 150 mg/dl Borderline High: 150 - 199 mg/dl High: 200 - 499 mg/dl Very High: >=500 mg/dl 1Cholesterol 147 0-200 mg/dl 04/20/2018 04:39 1HDL 39 35-86 mg/dl 04/20/2018 04:39 01619-5 1Cholesterol.in LDL:MCnc:Pt:Ser/Plas:Qn:Direct assay 93 0-99 mg/dl 04/20/2018 04:39 Note: Direct LDL Intrepretations: Optimal: <100 mg/dl Suspect: 100 - 129 mg/dl Borderline: 130 - 159 mg/dl High: 160 - 189 mg/dl Very High: >190 mg/dl 1Risk Factor 3.8 0.0-4.4 04/20/2018 04:39 Note: Risk Factor Men Women Risk Factor 3.4 3.3 1/2 Average 5.0 4.4 Average 9.6 7.1 2X Average 24.0 11.0 3X Average 2089-1 1Cholesterol.in LDL:MCnc:Pt:Ser/Plas:Qn 23 20-50 mg/dl 04/20/2018 04:39 * Performing Lab Footnotes:* [address] [place] [address] [id number] - [address] [facility] [address] [place] [address] [facility] - MD: DIRECTOR MARGARET PADILLA Radiology Results Order: [id number] MRI BRAIN W/O CONTRAST* Exam Completion Date:04/20/2018 07:01 Procedure: MRI BRAIN W/O CONTRAST Order Date: 04/20/2018 7:01 AMOrderin g Provider: DR YONY Lyman Indication: [id number]: Cerebrovascular acci dentComparison: March 30, 2018Technique: Multiplanar, multisequence images of the brain were obtained withoutadministration of intravenous gadolinium based co ntrast.Findings: No evidence of diffusion restriction to suggest acute infarct. Scattered areas of T2/Flair signal elevation are seen involving theperiventricul ar and subcortical white matter likely member service representative of smallvessel occlusive d isease. Global parenchymal volume loss is present.There is no extra-axial fluid collection. No acute or chronic intracranialhemorrhage is seen. No evidence of cerebellar tonsillar herniation. Sellar/suprasellar structuresare intact. The ce rvicomedullary junction is within normal limits.Impression: 1. No acute infarcti on.2. Moderate microvascular ischemic changes.This final report was electronical ly signed by Dr Antolin Cruz MD 04/20/201810:30 AMDictated By: Law CRUZ e: 04/20/2018 10:30 Order: [id number] US CAROTID BILAT Doppler* Exam Completion Date:04/19/2018 22:05 Procedure: US CAROTID BILAT Doppler Order Date: 04/19/2018 10:05 PMOrde ring Provider: DR YONY Lyman Indication: [id number]: Cerebrovascular a ccidentComparison: 2009TECHNIQUE : Real-time cerebrovascular ultrasonography was obtained from sternalnotch to the angle of the mandible bilaterally utilizing g ray scale, color flowand spectral Doppler analysis. Systolic velocity ratios wer e calculated forinternal carotid artery to common carotid artery bilaterally.FIN DINGS:RIGHT CAROTID BIFURCATION: Moderate atherosclerotic plaque. Peak systolic andend-diastolic velocities in the right internal carotid artery are 168 and 45c m/s. Internal carotid/common carotid ratio is 2.0. Right vertebral flow isantegr jason.LEFT CAROTID BIFURCATION: Moderate atherosclerotic plaque. Peak systolic and end-diastolic velocities in the left internal carotid artery are 205 and 47cm/s. Internal carotid/common carotid ratio is 2.4. Left vertebral flow isantegrade.I MPRESSION:1. Moderate atherosclerotic plaque in each carotid bulb and ICA origi n.2. There is 50-59% stenosis of the bilateral proximal ICA/ICA origins..3. Junior ateral antegrade vertebral artery flow.This final report was electronically sign ed by Dr Antolin Cruz MD 04/20/20186:28 AMDictated By: EVELIA CRUZKDate: 03/29 06:28 Vital Signs Vitals Value Date Height 62 in 04/20/2018 BSA (Body Surface Area) 1.03314 m2 04/20/2018 BMI (Body Mass Index) 21.5 kg/m2 04/20/2018 Body Temperature 98.7 F 04/20/2018 Pulse Rate 91 (beats)/min 04/20/2018 Respiratory Rate 14 (breaths)/min 04/20/2018 O2% BldC Oximetry 96 % 04/20/2018 BP Systolic 111 mmHg 04/20/2018 BP Diastolic 53 mmHg 04/20/2018 Weight Measured 117.28 lbs 04/20/2018 Advance Directives PT HAS NEITHER Directive Type Effective Date Heel Trimmer Notes Supporting Document Name Address Phone No Directive Type specified 06/03/2012 21:27 Not Specified Not Specified Not Specified None No Patient does NOT have Living Will Directive Type Effective Date Heel Trimmer Notes Supporting Document Name Address Phone No Directive Type specified 08/27/2014 08:12 Not Specified Not Specified Not Specified None No No Directive Type specified 08/27/2014 08:12 Not Specified Not Specified Not Specified None No Patient HAS Living Will Directive Type Effective Date Heel Trimmer Notes Supporting Document Name Address Phone No Directive Type specified 12/29/2017 09:53 Not Specified Not Specified Not Specified None No Family History * No Data Reported Plan of Care * No data in the system Procedures Code Code System Procedure Name Target Site Date of Procedure MRI BRAIN W/O CONTRAST 04/20/2018 10:36 US CAROTID BILAT Doppler 04/20/2018 06:35 Encounters * No data in the system Immunizations Vaccine Code Code System Vaccine Name Date Status 135 CVX influenza, high dose seasonal, preservative-free 01/04/2018 Completed 133 CVX pneumococcal conjugate vaccine, 13 valent 01/15/2016 Completed Functional Status Code Functional/Cognitive Condition Code System Date Status 207582319 Wears glasses SNOMED-CT 04/19/2018 Active 275170138 Ability to perform activities of everyday life (observable entity) SNOMED-CT 04/19/2018 Active 111697456 Ability to manage personal health care (observable entity) SNOMED-CT 04/19/2018 Active 864200733 Oriented to time SNOMED-CT 04/20/2018 Active [address] SNOMED-CT 04/20/2018 Active 381009493 Oriented to person SNOMED-CT 04/20/2018 Active 538900312 Firm pressure touch, function (observable entity) SNOMED-CT 04/20/2018 Active 580662214 No speech problem (situation) SNOMED-CT 04/20/2018 Active 481099815 Stick only for walking SNOMED-CT 04/20/2018 Active Hospital Discharge Instructions * STROKE* Stroke Education-ALL 6 Stroke Educ Elements are Required Prior to Discharge* Patient given written information * Education given for Activation of emergency medical services if signs or symptoms of stroke occur * Patient Informed - Education given related to follow-up care after Discharge * Education given for Warning Signs andsymptoms of Stroke * Education given related to Discharge - Prescribed medications * Education given related to Risk Factors for Stroke - to raise awareness also indicate risks in box below * DAILY and at Discharge, Stroke Risk Factor Education Documentation* Hypertension * Hyperlipidemia * Ischemic Stroke: Were the following medications ordered on discharge?* Statins * VTE* VTE Discharge Instructions* Education given related to Discharge Medications * Psychosocial* Emotional State* Calm * Pleasant * Housing Type* House * Patient/Family Concerns* None * Discharge Instructions* IV Removed Date* 04-20-2018 * Discharge Diagnosis* RIGHT SIDIED FACIAL WEAKNESS * Physician Name for Follow Up Appt #1* DR MACARIO 2 WEEKS IN OFFICE * Physician Name for Follow Up Appt #2* DR ZUNIGA 4 WEEKS IN [place] OFFICE [phone] * Discharge Weight* 53 KGS * Important Message to Medicare Beneficiaries Completed* Yes * Activity Level* As tolerated, unrestricted * Medications* 1 PRESCRIPTION GIVEN * Continue Present Medications * Prescriptions Given * Diet* CARDIAC DIET * Other * Discharge Instructions* Patient education provided * Follow Up Care* Patient To Schedule * Readmission Risk (LACE Score)* 4 * Written Discharge Plan given to the Patient at the time of discharge contains: * Reason for hospitalization * Discharge medications including what medications to take, how to take them, and how to obtain the medication. * Patient / family / caregiver given instructions on what to do if their condition changes. * Copy of Advanced Directive given to Patient* No * Pneumonia Vaccine* Does Not Meet Criteria * Influenza Vaccine NOT Given, State Reason(s) Below:* Previously immunized during this flu season * Discharge Instructions 2* Wound / Incision Care* Not Applicable * Smoking Cessation Teaching* Patient is nonsmoker or former smoker of greater than one year * Discharge Education* Stroke Education * Copy of Discharge Medication List * Discussed New / Changed Medications * Personal Belongings Returned To Patient/Family* Yes * Valuables Returned To Patient/Family* Yes * Patient/Significant Other Education Acknowledgement* I hereby acknowledge receiving the explanation of the attached instructions. I was able to 'teach back' my health information and education to my nurse and I understand what I was taught as indicated by my signature below. * Discharge Instructions Explained To* Patient * Discharge Summary* Accompanied By* Relatives * Discharge Status* Vital Signs Stable * Afebrile * Adequate Diet/Liquid Intake * Adequate Urinary Output * Adequate Bowel Functioning * Activity Tolerated within Physical Limits * Mode Of Discharge* Wheelchair * Patient Transferred/Discharged To* Home * Pain At Discharge* Denies Pain
--- OUTSIDE RECORDS SUMMARY | 2018-07-30 19:22 | XMS REPORT | Continuity of Care Document ---
Author Author [facility] Address [address] [place] [address] ;ext= Care Team Providers Care Foundry Hand Name Role Phone ISABEL EDOUARD Admphys ISABEL EDOUARD Attphys Hospital Admission Diagnosis Code Admission Diagnosis Date 20013100 Bronchitis Social History Element Description Code Description Smoking Status Code System Start Date End Date Smoking Status [id number] Light tobacco smoker SNOMED-CT Problems Code Code System Problem Name Start Date End Date Status 838116002 SNOMED-CT Shoulder strain 09/23/2016 Active 17184953 SNOMED-CT Shoulder pain 09/23/2016 Active Medications RxNorm Medication Dose Route Instructions Indications Start Date End Date Status 039286 tramadol hydrochloride 50 MG Oral Tablet 50 milligram oral orally every 8 hours as needed. (as needed for pain) Active Allergies * No Known Allergies Results Radiology Results Order: [id number] XR CHEST 2 PA LATERAL* Exam Completion Date:12/29/2017 09:55 PA and lateral chest:Exam Date: 12/29/2017History: BronchitisCompared to Novemb er 2013.Hyperinflation is again noted. The lungs are clear. The cardiomedias tinalsilhouette is within normal limits. There are no significant bony abnormali ties.Impression: Stable chest. Emphysematous changes with no acute abnormalityid entified.This final report was electronically signed by Dr Abdullahi Baker MD 11:15 AMDictated By: Bandar BAKERte: 12/29/2017 11:15 Vital Signs * No data in the system Advance Directives PT HAS NEITHER Directive Type Effective Date Industrial Engineering Technician Notes Supporting Document Name Address Phone No Directive Type specified 06/03/2012 21:27 Not Specified Not Specified Not Specified None No Patient does NOT have Living Will Directive Type Effective Date Industrial Engineering Technician Notes Supporting Document Name Address Phone No Directive Type specified 08/27/2014 08:12 Not Specified Not Specified Not Specified None No No Directive Type specified 08/27/2014 08:12 Not Specified Not Specified Not Specified None No Patient HAS Living Will Directive Type Effective Date Industrial Engineering Technician Notes Supporting Document Name Address Phone No Directive Type specified 12/29/2017 09:53 Not Specified Not Specified Not Specified None No Family History * No Data Reported Plan of Care * No data in the system Procedures Code Code System Procedure Name Target Site Date of Procedure XR CHEST 2 PA LATERAL 12/29/2017 11:22 Encounters Date Code Diagnosis Status (ICD10) - J40 BRONCHITIS NOT SPEC ACUTE/CHRON Active Immunizations * No data in the system Functional Status * No data in the system Hospital Discharge Instructions * No data in the system
--- OUTSIDE RECORDS SUMMARY | 2018-07-30 19:22 | XMS REPORT | Continuity of Care Document ---
Author Author [facility] Address [address] [place] [address] ;ext= Care Team Providers Care Pediatric Occupational Therapist Name Role Phone ISABEL EDOUARD Admphys ISABEL EDOUARD Attphys Hospital Admission Diagnosis Code Admission Diagnosis Date ENCOUNTER FOR SCREENING MAMMOGRAM FOR MALIGNANT NEOPLASM OF BREAST Social History Element Description Code Description Smoking Status Code System Start Date End Date Smoking Status 529148317 Current every day smoker SNOMED-CT Problems Code Code System Problem Name Start Date End Date Status 714356496 SNOMED-CT Shoulder strain 09/23/2016 Active 81648485 SNOMED-CT Shoulder pain 09/23/2016 Active Medications RxNorm Medication Dose Route Instructions Indications Start Date End Date Status 234863 tramadol hydrochloride 50 MG Oral Tablet 50 milligram oral orally every 8 hours as needed. (as needed for pain) Active Allergies * No Known Allergies Results Radiology Results Order: [id number] MM MAMMO SCRN 3D KADIE* Exam Completion Date:12/26/2017 13:15 * Outcome:* Code: 2-Benign Finding Procedure: MM MAMMO SCRN 3D TOMOExam Date: 12/26/2017 1:15 PMOrdering Provide r: ISABEL EDOUARDClinical Indication: Digital screening mammography.Comparison: S epte2016 and October 01, 2015Technique: 3-D tomosynthesis views of both br easts were obtained. The study isinterpreted using computer-aided detection (CAD ).Findings:The breasts are heterogeneously dense which lowers the mammographic s ensitivityto detect malignancy.There are no suspicious masses in either breast.T here are benign calcifications in each breast.There are no pathologic skin or ni pple alterations.Impression:1. No mammographic evidence of malignancy.2. Recomme nd annual mammographic followup.3. Patient is entered into a reminder system wit h a target due date for the nextmammogram in one year.BIRADS Result 2: Benign f indings.This final report was electronically signed by Dr Lucinda Baker MD 12/26/20173:55 PMDictated By: LUCINDA BAKERDate: 12/26/2017 15:55 Vital Signs * No data in the system Advance Directives PT HAS NEITHER Directive Type Effective Date Charter Driver Notes Supporting Document Name Address Phone No Directive Type specified 06/03/2012 21:27 Not Specified Not Specified Not Specified None No Patient does NOT have Living Will Directive Type Effective Date Charter Driver Notes Supporting Document Name Address Phone No Directive Type specified 08/27/2014 08:12 Not Specified Not Specified Not Specified None No No Directive Type specified 08/27/2014 08:12 Not Specified Not Specified Not Specified None No Patient HAS Living Will Directive Type Effective Date Charter Driver Notes Supporting Document Name Address Phone No Directive Type specified 12/29/2017 09:53 Not Specified Not Specified Not Specified None No Family History * No Data Reported Plan of Care * No data in the system Procedures Code Code System Procedure Name Target Site Date of Procedure MM MAMMO SCRN 3D KADIE 12/26/2017 16:01 Encounters Date Code Diagnosis Status (ICD10) - Z1231 ENC SCR MAMMO MALIG NEOPLASM BREAST Active Immunizations * No data in the system Functional Status * No data in the system Hospital Discharge Instructions * No data in the system
--- OUTSIDE RECORDS SUMMARY | 2018-07-30 19:22 | XMS REPORT | Continuity of Care Document ---
Author Author [facility] [place] Address [address] [place] [address] ;ext= Care Team Providers Care Horse Stud Manager Name Role Phone FRANCO VAZQUEZ Admyosis FRANCO VAZQUEZ [facility] Admission Diagnosis Code Admission Diagnosis Date [id number] Closed fracture lumbar vertebra, wedge Social History Element Description Code Description Smoking Status Code System Start Date End Date Smoking Status 510301382 Unknown if ever smoked SNOMED-CT Problems Code Code System Problem Name Start Date End Date Status 733001191 SNOMED-CT Low back pain 05/12/2018 Active 292692441 SNOMED-CT Weakness of right facial muscle 04/19/2018 Active General Weakness 2018 Active 679883112 SNOMED-CT Anemia 2018 Active 15549504 SNOMED-CT Nausea and vomiting 02/2018 Active 152617979 SNOMED-CT Backache 2017 Active 823915792 SNOMED-CT Shoulder strain 09/23/2016 Active 18534556 SNOMED-CT Shoulder pain 09/23/2016 Active 6310825 SNOMED-CT Arthritis Unknown Active 93850206 SNOMED-CT Hypertensive disorder Unknown Active Medications RxNorm Medication Dose Route Instructions Indications Start Date End Date Status 2418 Cholecalciferol 2000 unit oral orally every day Active 466517 cilostazol 100 MG Oral Tablet 100 milligram oral orally 2 times per day (administer at least 30 minutes before or 2 hours after breakfast and dinner) Active Iron oral orally every day Active 173852 Lisinopril 20 MG Oral Tablet 20 milligram oral orally every day Active 56095 Ondansetron 4 milligram oral orally every 6 to 8 hours as needed. nausea and vomiting Active SIMVASTATIN 20 MG ORAL ORAL EVERY NIGHT AT BED TIME Active Allergies Code Code System Allergy Substance Type Reaction Severity Start Date End Date Status RXNorm No Known Drug Allergies Drug allergy Unknown 09/23/2016 04/19/2018 Inactive RXNorm No Known Allergies Drug allergy Active Results Laboratory Results Order: CBC PLATELET AUTO DIFF Specimen Source: BLOOD Body Site: [facility] Test Result Flag Range Unit Date 49164-7 1Leukocytes^^corrected for nucleated erythrocytes:NCnc:Pt:Bld:Qn:Automated count 6.3 4.80-10.80 10^3/ul 05/22/2018 10:34 789-8 1Erythrocytes:NCnc:Pt:Bld:Qn:Automated count 2.6 L 4.20-5.40 10^6/ul 05/22/2018 10:34 718-7 1Hemoglobin:MCnc:Pt:Bld:Qn 7 LL 12.0-14.0 gm/dl 05/22/2018 10:34 Note: RESULT CALLED TO SUNSHINE ABBASI RN () AT 10:53/READ BACK/RR 4544-3 1Hematocrit:VFr:Pt:Bld:Qn:Automated count 22 LL 37.0-47.0 % 05/22/2018 10:34 Note: RESULT CALLED TO SUNSHINE ABBASI RN () AT 10:53/READ BACK/RR 787-2 1Erythrocyte mean corpuscular volume:EntVol:Pt:RBC:Qn:Automated count 84.6 81.0-99.0 fL 05/22/2018 10:34 785-6 1Erythrocyte mean corpuscular hemoglobin:EntMass:Pt:RBC:Qn:Automated count 26.9 L 27.0-31.0 pg 05/22/2018 10:34 786-4 1Erythrocyte mean corpuscular hemoglobin concentration:MCnc:Pt:RBC:Qn:Automated count 31.8 L 33.0-37.0 gm/dl 05/22/2018 10:34 788-0 1Erythrocyte distribution width:Ratio:Pt:RBC:Qn:Automated count 15.5 H 11.5-14.5 % 05/22/2018 10:34 777-3 1Platelets:NCnc:Pt:Bld:Qn:Automated count 269 130-400 10^3/ul 05/22/2018 10:34 00010-5 1Platelet mean volume:EntVol:Pt:Bld:Qn:Automated count 8.7 A 7.4-10.4 fL 05/22/2018 10:34 770-8 1Neutrophils/100 leukocytes:NFr:Pt:Bld:Qn:Automated count 76 H 42.0-75.0 % 05/22/2018 10:34 736-9 1Lymphocytes/100 leukocytes:NFr:Pt:Bld:Qn:Automated count 10.5 L 13.0-42.0 % 05/22/2018 10:34 5905-5 1Monocytes/100 leukocytes:NFr:Pt:Bld:Qn:Automated count 12.5 4.0-14.0 % 05/22/2018 10:34 713-8 1Eosinophils/100 leukocytes:NFr:Pt:Bld:Qn:Automated count 0.2 L 1.0-5.0 % 05/22/2018 10:34 706-2 1Basophils/100 leukocytes:NFr:Pt:Bld:Qn:Automated count 0.2 0.0-3.0 % 05/22/2018 10:34 1IG% 0.6 H 0.0-0.4 % 05/22/2018 10:34 * Performing Lab Footnotes:* [address] [place] [address] - [id number] - [address] [place] [id number] [facility] - MD: DIRECTOR MARGARET PADILLA Vital Signs Vitals Value Date Pulse Rate 93 (beats)/min 05/22/2018 Respiratory Rate 18 (breaths)/min 05/22/2018 O2% BldC Oximetry 93 % 05/22/2018 BP Systolic 100 mmHg 05/22/2018 BP Diastolic 48 mmHg 05/22/2018 Body Temperature 98.1 F 05/22/2018 Height 62 in 05/22/2018 Weight Measured 109 lbs 05/22/2018 BSA (Body Surface Area) 1.96865 m2 05/22/2018 BMI (Body Mass Index) 20 kg/m2 05/22/2018 Advance Directives PT HAS NEITHER Directive Type Effective Date Supervisor Fruit Grading Notes Supporting Document Name Address Phone No Directive Type specified 06/03/2012 21:27 Not Specified Not Specified Not Specified None No Patient does NOT have Living Will Directive Type Effective Date Supervisor Fruit Grading Notes Supporting Document Name Address Phone No Directive Type specified 08/27/2014 08:12 Not Specified Not Specified Not Specified None No No Directive Type specified 08/27/2014 08:12 Not Specified Not Specified Not Specified None No Patient HAS Living Will Directive Type Effective Date Supervisor Fruit Grading Notes Supporting Document Name Address Phone No Directive Type specified 12/29/2017 09:53 Not Specified Not Specified Not Specified None No Family History * No Data Reported Plan of Care * No data in the system Procedures Code Code System Procedure Name Target Site Date of Procedure FL PRT FLUORO UP TO 1 HR 05/22/2018 16:03 49310 CPT4 PERQ VERT AGMNTJ CAVITY CRTJ UNI/BI JONATHON 05/22/2018 Encounters Date Code Diagnosis Status (ICD10) - J43364Z WEDGE COMPRS FX 1ST LV INIT NIKHIL FX Active Immunizations Vaccine Code Code System Vaccine Name Date Status 135 CVX influenza, high dose seasonal, preservative-free 01/04/2018 Completed 133 CVX pneumococcal conjugate vaccine, 13 valent 01/15/2016 Completed Functional Status * No data in the system Hospital Discharge Instructions * Discharge Instructions* Discharge Diagnosis* kyphoplasty * Date/Time of Follow Up Appt #1* 06/13/2018 07:00 * Physician Name for Follow Up Appt #1* Dr Vazquez * Activity Level* Out of bed for meals, Walker as needed. Full weight bearing as tolerated. Ambulate three times a day with assist. * No Driving * Sit in Chair at Least 2-3 Times Daily * Up With Assistance * Other * Medications* Continue Present Medications * Prescriptions Called To Pharmacy * Diet* Regular * Discharge Instructions* Patient education provided * One Day Surgery Instructions * Wound Care * Follow Up Care* Yes * Scheduled Appointment * Discharge Instructions 2* Wound / Incision Care* Ice to operative side x 48 hours then PRN pain and swelling, Leave dressing in place for 48 hours. Remove dressing after 48 hours, cleanse incision with hydrogen peroxide, apply large ban-aid. Perform wound care daily untiil healed. * Incision * Call doctor if temperature is above 101 or if change in wound /incision / drainage is noted * Other * PACU2* Instructions for Follow-Up Care ALL PATIENTS* We [...] label. * Special Instructions* Return to ER if high fevers, chills, purulent drainage, numbness, tingling, worsening pain, swelling, chest pain, or shortness of breath occur.
--- OUTSIDE RECORDS SUMMARY | 2018-07-30 19:22 | XMS REPORT | Continuity of Care Document ---
Author Author [facility] Address [address] [place] [address] ;ext= Care Team Providers Care Certified Master Locksmith Name Role Phone ISABEL EDOUARD Admphys ISABEL EDOUARD [facility] Hospital Admission Diagnosis Code Admission Diagnosis Date [id number] Low back pain Social History Element Description Code Description Smoking Status Code System Start Date End Date Smoking Status [id number] Light tobacco smoker SNOMED-CT Problems Code Code System Problem Name Start Date End Date Status 054358245 SNOMED-CT Shoulder strain 09/23/2016 Active 28675738 SNOMED-CT Shoulder pain 09/23/2016 Active Medications RxNorm Medication Dose Route Instructions Indications Start Date End Date Status 951407 tramadol hydrochloride 50 MG Oral Tablet 50 milligram oral orally every 8 hours as needed. (as needed for pain) Active Allergies * No Known Allergies Results Radiology Results Order: [id number] XR L-S SPINE MIN 4 V* Exam Completion Date:04/05/2018 11:27 Lumbar spine series 5 views:History: Low back painAP, lateral, spot lateral and both oblique views were obtained. There is a mildlevoscoliosis. A compression fr acture of the superior endplate of L3 is notedwhich appears to be an interval ch bita from lateral chest x-ray dated 2017. There is near 50% maximal c ompression with no retropulsion orsubluxation noted.The remaining lumbar vertebr al body heights are well-maintained. There is grade1 spondylolisthesis of L4 on L5 with approximately 7 mm anterolisthesis of Q9lybeb. No disc space narrowing i s identified. Facet arthrosis is present in thelower lumbar region but no pars d efects are identified. There is generalizedosteopenia.Impression: Compression fr acture of L3 as described, new from December 29, 2017.Other findings as noted abo ve.This final report was electronically signed by Dr Lucinda Baker MD 04/05/2018 12:46 PMDictated By: LUCINDA BAKERDate: 04/05/2018 12:46 Vital Signs * No data in the system Advance Directives PT HAS NEITHER Directive Type Effective Date Tafe Teacher Notes Supporting Document Name Address Phone No Directive Type specified 06/03/2012 21:27 Not Specified Not Specified Not Specified None No Patient does NOT have Living Will Directive Type Effective Date Tafe Teacher Notes Supporting Document Name Address Phone No Directive Type specified 08/27/2014 08:12 Not Specified Not Specified Not Specified None No No Directive Type specified 08/27/2014 08:12 Not Specified Not Specified Not Specified None No Patient HAS Living Will Directive Type Effective Date Tafe Teacher Notes Supporting Document Name Address Phone No Directive Type specified 12/29/2017 09:53 Not Specified Not Specified Not Specified None No Family History * No Data Reported Plan of Care * No data in the system Procedures Code Code System Procedure Name Target Site Date of Procedure XR L-S SPINE MIN 4 V 04/05/2018 12:52 Encounters Date Code Diagnosis Status (ICD10) - M545 LOW BACK PAIN Active Immunizations * No data in the system Functional Status * No data in the system Hospital Discharge Instructions * No data in the system
--- OUTSIDE RECORDS SUMMARY | 2018-07-30 19:22 | XMS REPORT | Continuity of Care Document ---
Author Author [facility] [place] Address [address] [place] [address] ;ext= Care Team Providers Care Dealer Compliance Representative Name Role Phone JESICA LARSEN JESICA LARSEN Hospital Admission Diagnosis Code Admission Diagnosis Date [id number] Low back pain Social History Element Description Code Description Smoking Status Code System Start Date End Date Smoking Status [id number] Never smoker SNOMED-CT Problems Code Code System Problem Name Start Date End Date Status 159560909 SNOMED-CT Low back pain 05/12/2018 Active 548963637 SNOMED-CT Weakness of right facial muscle 04/19/2018 Active General Weakness 2018 Active 374661300 SNOMED-CT Anemia 2019 Active 16244357 SNOMED-CT Nausea and vomiting 02/2018 Active 268412098 SNOMED-CT Backache 2017 Active 571786344 SNOMED-CT Shoulder strain 09/23/2016 Active 67360928 SNOMED-CT Shoulder pain 09/23/2016 Active 1094297 SNOMED-CT Arthritis Unknown Active 83939973 SNOMED-CT Hypertensive disorder Unknown Active Medications RxNorm Medication Dose Route Instructions Indications Start Date End Date Status 2418 Cholecalciferol 2000 unit oral orally every day Active 695908 cilostazol 100 MG Oral Tablet 100 milligram oral orally 2 times per day (administer at least 30 minutes before or 2 hours after breakfast and dinner) Active Iron oral orally every day Active 664556 Lisinopril 20 MG Oral Tablet 20 milligram oral orally every day Active SIMVASTATIN 20 MG ORAL ORAL EVERY NIGHT AT BED TIME Active Allergies Code Code System Allergy Substance Type Reaction Severity Start Date End Date Status RXNorm No Known Drug Allergies Drug allergy Unknown 09/23/2016 04/19/2018 Inactive RXNorm No Known Allergies Drug allergy Active Results Radiology Results Order: [id number] XR LUMBAR SPINE (AP/LATERAL)* Exam Completion Date:05/12/2018 12:14 Lumbar spine AP and lateral, 3 views:History: Falling injuryAP, lateral and spot lateral views were obtained. Comparison is made to 2018.Now noted is a compression fracture of the L1 vertebral body. There is moderatecompression of the superior endplate with approximately 30% loss of height.There is no sublux ation or retropulsion.Interval changes of vertebroplasty are noted at L3 at the site of the previouslynoted compression fracture. There is uptake of PMMA in the paravertebral veinslaterally and posteriorly.The remaining lumbar vertebral body heights are preserved. There is stable grade1 anterolisthesis of L4 on L5. Ost eopenia is noted.Impression: New compression fracture of L1 as described. Interv al changes ofvertebroplasty at L3.This final report was electronically signed by Dr Lucinda Baker MD 05/12/20181:35 PMDictated By: LUCINDA BAKERDate: 05/12 13:35 Vital Signs Vitals Value Date Body Temperature 99.5 F 05/12/2018 Pulse Rate 80 (beats)/min 05/12/2018 Respiratory Rate 18 (breaths)/min 05/12/2018 O2% BldC Oximetry 100 % 05/12/2018 BP Systolic 143 mmHg 05/12/2018 BP Diastolic 66 mmHg 05/12/2018 Height 62 in 05/12/2018 Weight Measured 108.9 lbs 05/12/2018 BSA (Body Surface Area) 1.40471 m2 05/12/2018 BMI (Body Mass Index) 20 kg/m2 05/12/2018 Advance Directives PT HAS NEITHER Directive Type Effective Date Line Inspector Notes Supporting Document Name Address Phone No Directive Type specified 06/03/2012 21:27 Not Specified Not Specified Not Specified None No Patient does NOT have Living Will Directive Type Effective Date Line Inspector Notes Supporting Document Name Address Phone No Directive Type specified 08/27/2014 08:12 Not Specified Not Specified Not Specified None No No Directive Type specified 08/27/2014 08:12 Not Specified Not Specified Not Specified None No Patient HAS Living Will Directive Type Effective Date Line Inspector Notes Supporting Document Name Address Phone No Directive Type specified 12/29/2017 09:53 Not Specified Not Specified Not Specified None No Family History * No Data Reported Plan of Care * No data in the system Procedures Code Code System Procedure Name Target Site Date of Procedure XR LUMBAR SPINE (AP/LATERAL) 05/12/2018 13:41 Encounters Date Code Diagnosis Status (ICD10) - M545 LOW BACK PAIN Active Immunizations Vaccine Code Code System Vaccine Name Date Status 135 CVX influenza, high dose seasonal, preservative-free 01/04/2018 Completed 133 CVX pneumococcal conjugate vaccine, 13 valent 01/15/2016 Completed Functional Status * No data in the system Hospital Discharge Instructions * Discharge Instructions 2* Discharge Diagnosis* back pain * Important Information* Consult your physician or return to the Emergency Department immediately if worse, if not better as expected, or if any problems arise. * Follow Up Care* Yes * Important Information* Please understand that you have received care only on an emergency basis. If your condition does not improve, you should call your personal physician for follow-up care. If you do not have a physician, you may call the referred physician listed. * If you have questions about your care or these discharge instructions, you may call the Emergency Department. Please take your discharge paperwork with you to any follow-up appointments. * Follow Up Care* Patient To Schedule * Follow-Up With:* Primary Care Physician * Activity Level* As tolerated, unrestricted * Diet* Regular * Prescriptions Given Via:* N/A
--- OUTSIDE RECORDS SUMMARY | 2018-07-30 19:22 | XMS REPORT ---
Author Author [facility] Address Unknown Phone Unavailable Care Team Providers Care Inspector Final Assembly Mechanical Name Role Phone Ngoc UREÑA AMYLAKESHA Unavailable Unavailable GRICEL QUICK Unavailable Unavailable FRANCO VAZQUEZ Unavailable Unavailable LARSEN, JESICA Unavailable Unavailable ALHEZAYEN Unavailable Unavailable RONDON, ALFRED Unavailable Unavailable ARLEEN, JONATHAN Unavailable Unavailable ISABEL EDOUARD Unavailable Unavailable Problems This patient has no known problems. Allergies, Adverse Reactions, Alerts This patient has no known allergies or adverse reactions. Medications This patient has no known medications. Results Test Description Test Time Test Comments Text Results Atomic Results Result Comments CT BRAIN WO 2018-07-30 18:27:00 [place] [address] Patient Name: MOISÉS WOODWARD MR #: [id number] : 1945 Age/Sex: 73/F Req #: [id number] Adm Physician: Ordered by: VALERIA BENEDICT GEOPHYSICAL PROSPECTING SURVEYOR Report #: [id number] Location: ER Room/Bed: Procedure: [id number] CT/CT BRAIN WO Exam Date: 07/30/18 Exam Time: 1800 REPORT STATUS: Signed History:Patient very altered, confused. Comparison studies: None Technique: Axial images were obtained from the skull base to the vertex. Coronal and sagittal images reconstructed from the axial data. Intravenous contrast: None Dose modulation, iterative reconstruction, and/or weight based adjustment of the mA/kV was utilized to reduce the radiation dose to as low as reasonably achievable. Findings: Scalp/skull: No abnormalities. Extra-axial spaces: No masses. No fluid collections. Mild dural thickening at the right frontoparietal convexity.. Brain sulci: Mildly prominent. Ventricles: Moderately compensatory dilatation. No hydrocephalus. Parenchyma: Scattered and confluent hypodensities in the supratentorial white matter are small vessel ischemic changes. No masses, hemorrhage, acute or chronic cortical vascular insults. Sellar/suprasellar region: No abnormalities. Craniocervical junction: Patent foramen magnum. No Chiari one malformation. Incidental findings: Atherosclerotic calcifications in the carotid siphons . Impression: No acute abnormalities. Chronic findings: 1. Moderate central volume loss. 2. Moderate supratentorial white matter small vessel ischemic changes. Signed by: DR Kaden Aragon M.D. on 07/30/2018 6:33 PM Dictated By: KADEN NICOLAS MD 32 Transcribed By: CHARLEE on 07/30/181832 COPY TO: VALERIA BENEDICT GEOPHYSICAL PROSPECTING SURVEYOR CHEST SINGLE (PORTABLE) 2018-07-30 18:13:00 [place] [address] Patient Name: MOISÉS WOODWARD MR #: [id number] : 1945 Age/Sex: 73/F Req #: [id number] Adm Physician: Ordered by: VALERIA BENEDICT GEOPHYSICAL PROSPECTING SURVEYOR Report #: [id number] Location: ER Room/Bed: Procedure: [id number] DX/CHEST SINGLE (PORTABLE) Exam Date: 07/30/18 Exam Time: 1800 REPORT STATUS: Signed A single frontal view of the chest. HISTORY: Altered mental status, high blood pressure COMPARISON: None available. DISCUSSION: Portable technique, limits sensitivity of the exam. Overlying monitoring leads and tubing. Tubes/Lines: None Lungs and pleura: Diffuse heterogeneously increased interstitial and airspace opacities. Trace blunting the left costophrenic angle and bilateral lower thoraces mild confluent opacities. Heart and mediastinum: The cardiac silhouette and central pulmonary vasculature appear mildly enlarged. Bones and soft tissues: Appear unremarkable, given this limited exam. IMPRESSION: Diffuse bilateral increased interstitial and airspace opacities, considerations include moderate pulmonary edema versus multifocal pneumonia. Signed by: Dr. Pradeep Plasencia D.O., M.M.M. on 07/30/2018 6:15 PM Dictated By: PRADEEP PLASENCIA DO 14 Transcribed By: CHARLEE on 07/30/181814 COPY TO: VALERIA HSIEH NP CULTURE, BLOOD 2018-07-15 19:49:00 Specimen: BloodCollected: 07/10/2018 14:15 Status: Final Last Updated: 07/15/2018 19:49 Culture Result (Final) (Final) No Growth After 5 Days CULTURE, ANAEROBE BLOOD 2018-07-15 19:49:00 Specimen: BloodCollected: 07/10/2018 14:15 Status: Final Last Updated: 07/15/2018 19:49 Culture Result (Final) (Final) No Growth After 5 Days CULTURE, BLOOD 2018-07-15 19:49:00 To start 15mins after 1st culture Specimen: BloodCollected: 07/10/2018 14:15 Status: Final Last Updated: 07/15/2018 19:49 (1) To start 15mins after 1st culture Culture Result (Final) (Final) No Growth After 5 Days CULTURE, ANAEROBE BLOOD 2018-07-15 19:49:00 Specimen: BloodCollected: 07/10/2018 14:15 Status: Final Last Updated: 07/15/2018 19:49 Culture Result (Final) (Final) No Growth After 5 Days CULTURE, BLOOD 2018-07-15 06:45:00 Specimen: BloodCollected: 07/09/2018 14:15 Status: Final Last Updated: 07/15/2018 06:45 Culture Result (Final) (Final) No Growth After 5 Days CULTURE, ANAEROBE BLOOD 2018-07-15 06:45:00 Specimen: BloodCollected: 07/09/2018 14:15 Status: Final Last Updated: 07/15/2018 06:45 Culture Result (Final) (Final) No Growth After 5 Days CULTURE, URINE 2018-07-13 06:48:00 Specimen: Urine SpecimensCollected: 07/10/2018 07:53 Status: Final Last Updated: 07/13/2018 06:48 Culture Result (Final) (Final) No Growth After 48 Hours [facility] 2018-07-12 08:03:00 Glucose (test code=GLU) 145 mg/dl 75-110 BUN (test code=BUN) 31.0 mg/dl 6.0-17.0 Creatinine (test code=CREA) 0.8 mg/dl 0.4-1.2 Sodium (test code=NA) 133 mmol/l 137-145 Potassium (test code=K) 4.1 mmol/l 3.5-5.0 Chloride (test code=CL) 96 mmol/l 98-107 CO2 (test code=CO2) 23 mmol/l 22-30 Calcium (test code=CALC) 9.1 mg/dl 8.4-10.2 T Protein (test code=TP) 6.5 gm/dl 5.1-8.7 Albumin (test code=ALB) 2.6 gm/dl 3.5-4.6 A/G Ratio (test code=AGRAT) 0.7 % 1.1-2.2 AST (SGOT) (test code=AST) 407 U/L 11-36 ALT (SGPT) (test code=ALT) 326 U/L 11-40 Alkaline Phos (test code=ALKP) 202 U/L 47-114 Total Bilirubin (test code=TBIL) 0.8 mg/dl 0.2-1.2 Globulin (test code=GLOBU) 3.9 gm/dl 2.3-3.5 Calcium, Corrected (test code=CALCCORR) 10.2 mg/dl 8.4-10.2 Various formulas exist for corrected serum calcium results, each yielding different values. This corrected result was based on the formula: Corrected Calcium=SerumCalcium + [0.8 * ( 4 - SerumAlbumin)] EGFR if (test code=EGFRAA) >60 mL/min/1.73m\\S\\2 EGFR if Non- (test code=EGFRNA) >60 mL/min/1.73m\\S\\2 Estimated Glomerular Filtration Rate (eGFR) Reference Intervals Decision Points for 18 years and older and average body mass: >=60 Does not exclude kidney disease. 30 - 59 Suggests moderate chronic kidney disease and indicates the need for further investigation including assessment of proteinuria and cardiovascular factors. < 30 Usually indicates a need for referral for assessment and management of chronic kidney failure. CBC (HEMOGRAM ONLY)2018-07-12 07:35:00* Test Item Value Reference Range Comments WBC (test code=WBC) 8.14 10\\S\\3/ul 4.80-10.80 RBC (test code=RBC) 4.01 10\\S\\6/ul 4.20-5.40 Hemoglobin (test code=HGB) 11.0 gm/dl 12.0-14.0 Hematocrit (test code=HCT) 33.0 % 37.0-47.0 MCV (test code=MCV) 82.3 fL 81.0-99.0 MCH (test code=MCH) 27.4 pg 27.0-31.0 MCHC (test code=MCHC) 33.3 gm/dl 33.0-37.0 RDW (test code=RDWVC) 16.0 % 11.5-14.5 Platelet (test code=PLT) 342 10\\S\\3/ul 130-400 MPV (test code=MPV) 9.0 fL 7.4-10.4 "NOT MEASURED" RESULTS ARE DISPLAYED WHEN THE INSTRUMENT HAS A SUPPRESSED OR UNREPORTABLE RESULT. THIS WILL MOST OFTEN HAPPEN WITH THE MPV WHEN THERE IS AN ABNORMAL PLATELET DISTRIBUTION DUE TO A CR ITICAL LOW VALUE OR PLATELET CLUMPING. THE RDW MAY BE SUPPRESSED IF THERE ARE MULTIPLE PEAKS PRESENT ON THE RBC HISTOGRAM. IN THIS CASE, A MANUAL REVIEW OF THE SLIDE WILL BE PERFORMED, AND RBC MORPHOLOGY WILL BE NOTED ON THE REPORT. [id number] 06:20:00* Test Item Value Reference Range Comments Glucose (test code=GLU) 164 mg/dl 75-110 BUN (test code=BUN) 21.0 mg/dl 6.0-17.0 Creatinine (test code=CREA) 0.8 mg/dl 0.4-1.2 Sodium (test code=NA) 135 mmol/l 137-145 Potassium (test code=K) 4.9 mmol/l 3.5-5.0 Chloride (test code=CL) 100 mmol/l 98-107 CO2 (test code=CO2) 26 mmol/l 22-30 Calcium (test code=CALC) 9.2 mg/dl 8.4-10.2 EGFR if (test code=EGFRAA) >60 mL/min/1.73m\\S\\2 EGFR if Non- (test code=EGFRNA) >60 mL/min/1.73m\\S\\2 Estimated Glomerular Filtration Rate (eGFR) Reference Intervals Decision Points for 18 years and older and average body mass: >=60 Does not exclude kidney disease. 30 - 59 Suggests moderate chronic kidney disease and indicates the need for further investigation including assessment of proteinuria and cardiovascular factors. < 30 Usually indicates a need for referral for assessment and management of chronic kidney failure. CBC WITH AUTO [id number] 06:05:00* Test Item Value Reference Range Comments WBC (test code=WBC) 9.02 10\\S\\3/ul 4.80-10.80 RBC (test code=RBC) 3.85 10\\S\\6/ul 4.20-5.40 Hemoglobin (test code=HGB) 10.6 gm/dl 12.0-14.0 Hematocrit (test code=HCT) 31.4 % 37.0-47.0 MCV (test code=MCV) 81.6 fL 81.0-99.0 MCH (test code=MCH) 27.5 pg 27.0-31.0 MCHC (test code=MCHC) 33.8 gm/dl 33.0-37.0 RDW (test code=RDWVC) 15.6 % 11.5-14.5 Platelet (test code=PLT) 299 10\\S\\3/ul 130-400 MPV (test code=MPV) 8.7 fL 7.4-10.4 "NOT MEASURED" RESULTS ARE DISPLAYED WHEN THE INSTRUMENT HAS A SUPPRESSED OR UNREPORTABLE RESULT. THIS WILL MOST OFTEN HAPPEN WITH THE MPV WHEN THERE IS AN ABNORMAL PLATELET DISTRIBUTION DUE TO A CR ITICAL LOW VALUE OR PLATELET CLUMPING. THE RDW MAY BE SUPPRESSED IF THERE ARE MULTIPLE PEAKS PRESENT ON THE RBC HISTOGRAM. IN THIS CASE, A MANUAL REVIEW OF THE SLIDE WILL BE PERFORMED, AND RBC MORPHOLOGY WILL BE NOTED ON THE REPORT. NE% (test code=NE) 80.4 % 42.0-75.0 LY% (test code=LY) 12.2 % 13.0-42.0 MO% (test code=MO) 6.8 % 4.0-14.0 EO% (test code=EO) 0.1 % 1.0-5.0 BA% (test code=BA) 0.1 % 0.0-3.0 IG% (test code=IG%) 0.4 % 0.0-0.4 RBC, [id number] 04:27:00* Test Item Value Reference Range Comments RBC Unit (test code=RBCUNIT) Released for Transfusion PT AND [id number] 00:17:00* Test Item Value Reference Range Comments Protime (test code=PT) 11.3 seconds 9.0-11.8 INR (test code=INR) 1.1 0.9-1.1 INR results are intended ONLY to monitor Oral Anticoagulant therapy in stablized patients. The INR Therapeutic Range is 2.0 - 3.0 Patients with a mechanical heart, the INR Range is 2.5 - 3.5 TROPONIN-I [id number] 21:45:00* Test Item Value Reference Range Comments Troponin-I (test code=TROP) 0.024 ng/ml 0.000-0.034 The 99th Percentile URL is 0.045 ng/mL for the Siemens [place] Troponin I. The Joint Society of Cardiology/[place] [employer] (ESC/ACC) and the National [...] first 24 hours after the clinical event. CROSSMATCH x 18:22:00* Test Item Value Reference Range Comments Crossmatch (test code=XMATCH) Completed: Compatible LACTIC ACID [id number] 18:09:00* Test Item Value Reference Range Comments LACTATE (test code=LAC) 2.5 mmol/l 0.7-2.[address] Michael Quick with the results Critical values were called to giacomo cespedes ms /rn by [id number] on 07/10/18 18:09 CDT. Results were read back by giacomo cespedes ms/ rn.CBC (HEMOGRAM ONLY)2018-07-10 16:22:00* Test Item Value Reference Range Comments WBC (test code=WBC) 5.72 10\\S\\3/ul 4.80-10.80 RBC (test code=RBC) 2.79 10\\S\\6/ul 4.20-5.40 Hemoglobin (test code=HGB) 7.8 gm/dl 12.0-14.0 Hematocrit (test code=HCT) 24.0 % 37.0-47.0 MCV (test code=MCV) 86.0 fL 81.0-99.0 MCH (test code=MCH) 28.0 pg 27.0-31.0 MCHC (test code=MCHC) 32.5 gm/dl 33.0-37.0 RDW (test code=RDWVC) 15.9 % 11.5-14.5 Platelet (test code=PLT) 272 10\\S\\3/ul 130-400 MPV (test code=MPV) 8.9 fL 7.4-10.4 "NOT MEASURED" RESULTS ARE DISPLAYED WHEN THE INSTRUMENT HAS A SUPPRESSED OR UNREPORTABLE RESULT. THIS WILL MOST OFTEN HAPPEN WITH THE MPV WHEN THERE IS AN ABNORMAL PLATELET DISTRIBUTION DUE TO A CR ITICAL LOW VALUE OR PLATELET CLUMPING. THE RDW MAY BE SUPPRESSED IF THERE ARE MULTIPLE PEAKS PRESENT ON THE RBC HISTOGRAM. IN THIS CASE, A MANUAL REVIEW OF THE SLIDE WILL BE PERFORMED, AND RBC MORPHOLOGY WILL BE NOTED ON THE REPORT. Critical values were called to GIACOMO CESPEDES RN/MS by [id number] on 07/10/18 16:22 C DT. Results were read back by GIACOMO CESPEDES RN/MS.TROPONIN-I Quantitative 2018-07-10 15:40:00* Test Item Value Reference Range Comments Troponin-I (test code=TROP) 0.040 ng/ml 0.000-0.034 The 99th Percentile URL is 0.045 ng/mL for the Siemens [place] Troponin I. The Joint Society of Cardiology/[place] [employer] (ESC/ACC) and the National [...] first 24 hours after the clinical event. [id number] 15:29:00* Test Item Value Reference Range Comments Potassium (test code=K) 4.2 mmol/l 3.5-5.0 TSH (Ultra Sensitive)2018-07-10 14:07:00* Test Item Value Reference Range Comments TSH (test code=TSH) 1.38 mIU/L 0.47-4.68 [id number] 13:58:00* Test Item Value Reference Range Comments Ammonia (test code=JLUIS) 28 umol/L 9-33 [id number] 12:00:00* Test Item Value Reference Range Comments pH (ABG) (test code=BGPH) 7.492 7.350-7.450 pCO2(T) (test code=BGPCO2(T)) 38.2 mm Hg 35.0-45.0 pO2(T) (test code=BGPO2(T)) 77.2 mm Hg 80.0-100.0 Na+ (test code=BGCNA+) 135.2 mmol/l 135.0-148.0 K+ (test code=BGCK+) 5.03 mmol/l 3.50-4.50 Ca2+ (test code=BGCCA2+) 1.140 mmol/l 1.120-1.320 Cl- (test code=BGCCL-) 96 mmol/l 98-107 Hct (test code=BGHCT) 27.1 35.0-50.0 Gluc (test code=BGCGLU) 226.0 mg/dl 60.0-109.9 Lac (test code=BGCLAC) 3.50 mmol/l 0.44-2.22 Barometric Pressure (test code=BGBARO) 765.2 mm Hg 450.0-1000.0 BE(act) (test code=BGBEACT) 6 mmol/l HCO3 (test code=BGHCO3) 29 meq/L 22-26 ctCO2(B) (test code=BGCTCO2(B)) 25 mmol/l FIO2 (fO2(I) (test code=BGFIO2) 0.21 % Drawn By (test code=BGDRAWNBY) KATELYN DUVALL Collection Date (test code=BGDTCOL) 07/10/2018 Collection Time (test code=BGCTM) 11:52 Sample Site (test code=BGSAMPLESITE) L Radial Sample Type (test code=BGSAMPLETYPE) Arterial Allens Test (test code=BGALLEN) Acceptable Notified By (test code=BGNOTIFIEDBY) KATELYN DUVALL Notified Whom (test code=BGNOTIFIEDWHOM) DR. QUICK Date Notified (test code=BGDTNOTIFIED) 07/10/2018 Time Notified (test code=BGTMNOTIFIED) 11:59 O2 Device (test code=RQH5QIL9) Room Air Instrument ID (test code=BGINSTRID) [id number] Reported By (test code=BGREPORTEDBY) KATELYN DUVALL RBC, [id number] 10:37:00* Test Item Value Reference Range Comments RBC Unit (test code=RBCUNIT) Released for Transfusion OCCULT BLOOD (ONE SPECIMEN)2018-07-10 08:28:00* Test Item Value Reference Range Comments Occult Blood (test code=OB) Negative Negative If a specimen is collected by a nurse, then you MUST fill out the Collecte d and Collected By rizzo TYPE & [id number] 08:11:00* Test Item Value Reference Range Comments ABO Blood Type (test code=ABO) A Rh (test code=RH) Positive Antibody Screen (test code=ABSCR) Negative Negative CROSSMATCH x 08:11:00* Test Item Value Reference Range Comments Crossmatch (test code=XMATCH) Completed: Compatible [id number] 07:13:00* Test Item Value Reference Range Comments Glucose (test code=GLU) 141 mg/dl 75-110 BUN (test code=BUN) 11.0 mg/dl 6.0-17.0 Creatinine (test code=CREA) 0.6 mg/dl 0.4-1.2 Sodium (test code=NA) 137 mmol/l 137-145 Potassium (test code=K) 3.9 mmol/l 3.5-5.0 Chloride (test code=CL) 99 mmol/l 98-107 CO2 (test code=CO2) 29 mmol/l 22-30 Calcium (test code=CALC) 8.7 mg/dl 8.4-10.2 T Protein (test code=TP) 6.0 gm/dl 5.1-8.7 Albumin (test code=ALB) 2.5 gm/dl 3.5-4.6 A/G Ratio (test code=AGRAT) 0.7 % 1.1-2.2 AST (SGOT) (test code=AST) 26 U/L 11-36 ALT (SGPT) (test code=ALT) 17 U/L 11-40 Alkaline Phos (test code=ALKP) 101 U/L 47-114 Total Bilirubin (test code=TBIL) 0.7 mg/dl 0.2-1.2 Globulin (test code=GLOBU) 3.5 gm/dl 2.3-3.5 Calcium, Corrected (test code=CALCCORR) 9.9 mg/dl 8.4-10.2 Various formulas exist for corrected serum calcium results, each yielding different values. This corrected result was based on the formula: Corrected Calcium=SerumCalcium + [0.8 * ( 4 - SerumAlbumin)] EGFR if (test code=EGFRAA) >60 mL/min/1.73m\\S\\2 EGFR if Non- (test code=EGFRNA) >60 mL/min/1.73m\\S\\2 Estimated Glomerular Filtration Rate (eGFR) Reference Intervals Decision Points for 18 years and older and average body mass: >=60 Does not exclude kidney disease. 30 - 59 Suggests moderate chronic kidney disease and indicates the need for further investigation including assessment of proteinuria and cardiovascular factors. < 30 Usually indicates a need for referral for assessment and management of chronic kidney failure. TROPONIN-I [id number] 06:59:00* Test Item Value Reference Range Comments Troponin-I (test code=TROP) 0.084 ng/ml 0.000-0.034 The 99th Percentile URL is 0.045 ng/mL for the Siemens [place] Troponin I. The Joint Society of Cardiology/[place] [employer] Cardiology (ESC/ACC) and the National [...] first 24 hours after the clinical event. CBC WITH AUTO [id number] 06:34:00* Test Item Value Reference Range Comments WBC (test code=WBC) 5.61 10\\S\\3/ul 4.80-10.80 RBC (test code=RBC) 2.69 10\\S\\6/ul 4.20-5.40 Hemoglobin (test code=HGB) 7.0 gm/dl 12.0-14.0 Hematocrit (test code=HCT) 22.1 % 37.0-47.0 MCV (test code=MCV) 82.2 fL 81.0-99.0 MCH (test code=MCH) 26.0 pg 27.0-31.0 MCHC (test code=MCHC) 31.7 gm/dl 33.0-37.0 RDW (test code=RDWVC) 16.0 % 11.5-14.5 Platelet (test code=PLT) 260 10\\S\\3/ul 130-400 MPV (test code=MPV) 8.4 fL 7.4-10.4 "NOT MEASURED" RESULTS ARE DISPLAYED WHEN THE INSTRUMENT HAS A SUPPRESSED OR UNREPORTABLE RESULT. THIS WILL MOST OFTEN HAPPEN WITH THE MPV WHEN THERE IS AN ABNORMAL PLATELET DISTRIBUTION DUE TO A CR ITICAL LOW VALUE OR PLATELET CLUMPING. THE RDW MAY BE SUPPRESSED IF THERE ARE MULTIPLE PEAKS PRESENT ON THE RBC HISTOGRAM. IN THIS CASE, A MANUAL REVIEW OF THE SLIDE WILL BE PERFORMED, AND RBC MORPHOLOGY WILL BE NOTED ON THE REPORT. NE% (test code=NE) 70.2 % 42.0-75.0 LY% (test code=LY) 16.9 % 13.0-42.0 MO% (test code=MO) 11.8 % 4.0-14.0 EO% (test code=EO) 0.4 % 1.0-5.0 BA% (test code=BA) 0.2 % 0.0-3.0 IG% (test code=IG%) 0.5 % 0.0-0.4 Critical values were called to DIOMEDES KEENAN RN by [id number] on 07/10/18 06:34 CDT. Results were read back by DIOMEDES KEENAN RN .LACTIC ACID [id number] 04:16:00* Test Item Value Reference Range Comments LACTATE (test code=LAC) 2.0 mmol/l 0.7-2.0 TROPONIN-I [id number] 02:13:00* Test Item Value Reference Range Comments Troponin-I (test code=TROP) 0.072 ng/ml 0.000-0.034 The 99th Percentile URL is 0.045 ng/mL for the Siemens [place] Troponin I. The Joint Society of Cardiology/[place] [employer] Cardiology (ESC/ACC) and the National [...] first 24 hours after the clinical event. [id number] 02:12:00* Test Item Value Reference Range Comments Potassium (test code=K) 4.2 mmol/l 3.5-5.0 Timed, K protocol, K recheckTROPONIN-I [id number] 19:31:00* Test Item Value Reference Range Comments Troponin-I (test code=TROP) 0.048 ng/ml 0.000-0.034 The 99th Percentile URL is 0.045 ng/mL for the Siemens [place] Troponin I. The Joint Society of Cardiology/[place] [employer] Cardiology (ESC/ACC) and the National [...] first 24 hours after the clinical event. [id number] 19:31:00* Test Item Value Reference Range Comments CPK (test code=CPK) 28 U/L 30-135 [id number] 19:15:00* Test Item Value Reference Range Comments Potassium (test code=K) 3.4 mmol/l 3.5-5.0 [id number] 19:15:00* Test Item Value Reference Range Comments Magnesium (test code=MG) 1.9 mg/dl 1.6-2.3 CT HEAD W/O [id number] 18:38:18 ORIGINALExam: Head CT wi thout contrastIndication: StrokeComparisons: Head CT 04/19/2018Technique:Axial im ages were obtained from the skull base to the vertex.Coronal and sagittal recons tructions obtained from the axial data.Dose modulation, iterative reconstruction , and/or weight based adjustment of themA/kVwas utilized to reduce the radiation dose to as low as reasonably achievable.Findings:Scalp/skull:No abnormalities. No fractures, blastic or lytic lesions.Extra-axial spaces:No masses. No fluid c ollections.Brain sulci: Mildly prominent.Ventricles: Mild ex vacuo dilatation. N o hydrocephalus.Parenchyma:Confluent hypodensity within the supratentorial white matter is nonspecific butlikely represent microvascular ischemic changes. Hypod ensity in the right coronaradiata is concluded with hypodensity within the anter ior aspect of the rightanterior limb of internal capsule.Sellar/suprasellar padmini on: No abnormalitiesCraniocervical junction: Patent foramen magnum. No Chiari o ne malformation.IMPRESSION:1. No hemorrhage, large territorial vascular insult, or hydrocephalus.2. Moderate supratentorial white matter microvascular ischemic changes.3. Mild generalized cerebral volume loss.A preliminary report was pro vided by Dr. Barrientos on 07/09/2018 at 2:45 PM.This final report was electronically signed by Dr Marcin Barrientos MD 07/09/20182:46 PMDictated By: ESTELITA BARRIENTOSINDate: 07/09/2018 14:46ADDENDUM The images and final report were reviewed and signed by Dr. Hallie godoy,neuroradiology faculty, on 07/09/2018 at 1831 hours.This final report was elect ronically signed by Dr Hallie Davidson MD 07/09/20186:31 PMDictated By: ANABELL CHANate: 07/09/2018 18:31URINALYSIS WITH [id number] 16:24:00* Test Item Value Reference Range Comments Color (test code=UCOLR) YELLOW Clarity (test code=UCLAR) CLEAR Glucose (test code=UGLUC) NEGATIVE NEGATIVE Bilirubin (test code=UBILI) NEGATIVE NEGATIVE Ketones (test code=UKET) NEGATIVE NEGATIVE Specific [place] (test code=USPGR) 1.010 1.005-1.030 Blood (test code=UBLD) TRACE-LYSED NEGATIVE PH (test code=UPH) 7.0 4.5-8.0 Protein (test code=UPROT) TRACE NEGATIVE Urobilinogen (test code=U UROB) 0.2 >0.2 Nitrite (test code=UNITR) NEGATIVE NEGATIVE Leukocyte Esterase (test code=ULEUK) NEGATIVE NEGATIVE WBC (test code=WBCUR) 0-1 0-5 RBC (test code=RBCUR) 5-10 0-5 Epithial Cells (test code=U EPI) 0-5 0-10 Bacteria (test code=UBACT) Trace None Seen,Trace DRUG SCREEN [id number] 15:53:00* Test Item Value Reference Range Comments PH (test code=UPH) 7.0 Specific [place] (test code=USPGR) 1.010 FT (test code=AMPHET) Negative (qualifier value) FT (test code=DISHA) Negative (qualifier value) FT (test code=BENZO) Negative (qualifier value) FT (test code=MARVEL) Negative (qualifier value) FT (test code=MTD) Negative (qualifier value) FT (test code=OPIAT) Negative (qualifier value) FT (test code=PCP) Negative (qualifier value) The following table provides an interpretive guide for the Drugs of Abuse ran on the Siemens [place] analyzer listed there in: Amphetamines < 1000 ng/ml=Negative Barbituates < 200 ng/ml=Negative Benzodiazapines < 200 ngml=Negative Cocaine < 300 ng/ml=Negative Methadone < 300 ng/ml=Negative Opiate < 300 ng/ml=Negative PCP < 25 ng/ml=Negative THC < 50 ng/ml=Negative Results equal to or greater than the above cut- off values=Presumptive Positive. Confirmation of Presumptive Positive results are available upon request. FT (test code=THC) Negative (qualifier value) [id number] 15:07:00* Test Item Value Reference Range Comments Magnesium (test code=MG) 2.1 mg/dl 1.6-2.3 XR CHEST AP/PA 1 [id number] 15:06:48Examination: Single AP view of the chest.COMPARISON: None.INDICATION: CoughDISCUSSION:Lines/tubes: None.Lungs: The lungs are well inflated and clear. No pneumonia or pulmonary edema.Pleura: No pleural effusion or pneumothorax.Heart and mediastinum: The heart and the mediastinum are unremarkable.Bones and soft tissues: No acute bony abnormalities.IMPRESSION:1. No acute cardiopulmonary abnormalities.This final report was electronically signed by Dr Jayme Askew MD 07/09/20183:00 PMDictated By: REJI ASKEWWDate: 07/09/2018 15:00TROPONIN-I Quantitative 2018-07-09 14:44:00* Test Item Value Reference Range Comments Troponin-I (test code=TROP) 0.059 ng/ml 0.000-0.034 The 99th Percentile URL is 0.045 ng/mL for the Siemens [place] Troponin I. The Joint Society of Cardiology/[place] [employer] Cardiology (ESC/ACC) and the National [...] first 24 hours after the clinical event. PRO-BNP(B-Type Natriuretic Peptide)2018-07-09 14:44:00* Test Item Value Reference Range Comments Pro-BNP(B-Peptide) (test code=PROBNP) 08588 pg/ml 0-125 Critical values were called to CYRUS PETERS/RN by [id number] on 07/09/18 14:44 C DT. Results were read back by CYRUS PETERS/RN.[id number] 14:41:00* Test Item Value Reference Range Comments Glucose (test code=GLU) 138 mg/dl 75-110 BUN (test code=BUN) 13.0 mg/dl 6.0-17.0 Creatinine (test code=CREA) 0.7 mg/dl 0.4-1.2 Sodium (test code=NA) 135 mmol/l 137-145 Potassium (test code=K) 2.7 mmol/l 3.5-5.0 Chloride (test code=CL) 91 mmol/l 98-107 CO2 (test code=CO2) 36 mmol/l 22-30 Calcium (test code=CALC) 9.4 mg/dl 8.4-10.2 T Protein (test code=TP) 7.2 gm/dl 5.1-8.7 Albumin (test code=ALB) 3.1 gm/dl 3.5-4.6 A/G Ratio (test code=AGRAT) 0.8 % 1.1-2.2 AST (SGOT) (test code=AST) 33 U/L 11-36 ALT (SGPT) (test code=ALT) 24 U/L 11-40 Alkaline Phos (test code=ALKP) 118 U/L 47-114 Total Bilirubin (test code=TBIL) 0.8 mg/dl 0.2-1.2 Globulin (test code=GLOBU) 4.1 gm/dl 2.3-3.5 Calcium, Corrected (test code=CALCCORR) 10.1 mg/dl 8.4-10.2 Various formulas exist for corrected serum calcium results, each yielding different values. This corrected result was based on the formula: Corrected Calcium=SerumCalcium + [0.8 * ( 4 - SerumAlbumin)] EGFR if (test code=EGFRAA) >60 mL/min/1.73m\\S\\2 EGFR if Non- (test code=EGFRNA) >60 mL/min/1.73m\\S\\2 Estimated Glomerular Filtration Rate (eGFR) Reference Intervals Decision Points for 18 years and older and average body mass: >=60 Does not exclude kidney disease. 30 - 59 Suggests moderate chronic kidney disease and indicates the need for further investigation including assessment of proteinuria and cardiovascular factors. < 30 Usually indicates a need for referral for assessment and management of chronic kidney failure. Critical values were called to LINDA KAUR ER/RN by [id number] on 07/09/18 14:41 C DT. Results were read back by LINDA KAUR ER/RN.LACTIC ACID [id number] 14:41:00* Test Item Value Reference Range Comments LACTATE (test code=LAC) 2.4 mmol/l 0.7-2.0 Critical values were called to LINDA KAUR ER/RN by [id number] on 07/09/18 14:41 C DT. Results were read back by LINDA PETERS/RN.CBC WITH AUTO [id number] 14:20:00* Test Item Value Reference Range Comments WBC (test code=WBC) 6.65 10\\S\\3/ul 4.80-10.80 RBC (test code=RBC) 3.34 10\\S\\6/ul 4.20-5.40 Hemoglobin (test code=HGB) 8.7 gm/dl 12.0-14.0 Hematocrit (test code=HCT) 27.1 % 37.0-47.0 MCV (test code=MCV) 81.1 fL 81.0-99.0 MCH (test code=MCH) 26.0 pg 27.0-31.0 MCHC (test code=MCHC) 32.1 gm/dl 33.0-37.0 RDW (test code=RDWVC) 15.6 % 11.5-14.5 Platelet (test code=PLT) 302 10\\S\\3/ul 130-400 MPV (test code=MPV) 8.2 fL 7.4-10.4 "NOT MEASURED" RESULTS ARE DISPLAYED WHEN THE INSTRUMENT HAS A SUPPRESSED OR UNREPORTABLE RESULT. THIS WILL MOST OFTEN HAPPEN WITH THE MPV WHEN THERE IS AN ABNORMAL PLATELET DISTRIBUTION DUE TO A CR ITICAL LOW VALUE OR PLATELET CLUMPING. THE RDW MAY BE SUPPRESSED IF THERE ARE MULTIPLE PEAKS PRESENT ON THE RBC HISTOGRAM. IN THIS CASE, A MANUAL REVIEW OF THE SLIDE WILL BE PERFORMED, AND RBC MORPHOLOGY WILL BE NOTED ON THE REPORT. NE% (test code=NE) 83.9 % 42.0-75.0 LY% (test code=LY) 7.1 % 13.0-42.0 MO% (test code=MO) 7.5 % 4.0-14.0 EO% (test code=EO) 0.2 % 1.0-5.0 BA% (test code=BA) 0.2 % 0.0-3.0 IG% (test code=IG%) 1.1 % 0.0-0.4 CBC WITH AUTO [id number] 10:54:00* Test Item Value Reference Range Comments WBC (test code=WBC) 6.30 10\\S\\3/ul 4.80-10.80 RBC (test code=RBC) 2.60 10\\S\\6/ul 4.20-5.40 Hemoglobin (test code=HGB) 7.0 gm/dl 12.0-14.0 RESULT CALLED TO SUNSHINE ABBASI RN (DS) AT 10:53/READ BACK/RR Hematocrit (test code=HCT) 22.0 % 37.0-47.0 RESULT CALLED TO SUNSHINE ABBASI RN (DS) AT 10:53/READ BACK/RR MCV (test code=MCV) 84.6 fL 81.0-99.0 MCH (test code=MCH) 26.9 pg 27.0-31.0 MCHC (test code=MCHC) 31.8 gm/dl 33.0-37.0 RDW (test code=RDWVC) 15.5 % 11.5-14.5 Platelet (test code=PLT) 269 10\\S\\3/ul 130-400 MPV (test code=MPV) 8.7 fL 7.4-10.4 NE% (test code=NE) 76.0 % 42.0-75.0 LY% (test code=LY) 10.5 % 13.0-42.0 MO% (test code=MO) 12.5 % 4.0-14.0 EO% (test code=EO) 0.2 % 1.0-5.0 BA% (test code=BA) 0.2 % 0.0-3.0 IG% (test code=IG%) 0.6 % 0.0-0.4 Critical values were called to SUNSHINE ABBASI RN by [id number] on 05/22/18 10:54 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 Results were read back by SUNSHINE ABBASI RN.XR LUMBAR SPINE (AP/LATERAL) 2018-05-12 13:41:53Lumbar spine AP and lateral, 3 views:History: Falling injuryAP, lateral and spot lateral views were obtained. Comparison is made to 2018.Now noted is a compression fracture of the L1 vertebral body. There is moderatecompression of the superior endplate with approximately 30% loss of height.There is no subluxation or retropulsion.Interval changes of vertebroplasty are noted at L3 at the site of the previouslynoted compression fracture. There is uptake of PMMA in the paravertebral veinslaterally and posteriorly.The remaining lumbar vertebral body heights are preserved. There is stable grade1 anterolisthesis of L4 on L5. Osteopenia is noted.Impression: New compression fracture of L1 as described. Interval changes ofvertebroplasty at L3.This final report was electronically signed by Dr Abdullahi Baker MD 05/12/20181:35 PMDictated By: ABDULLAHI BAKERDate: 05/12/2018 13:35BMP 2018-05-04 10:02:00* Test Item Value Reference Range Comments Glucose (test code=GLU) 119 mg/dl 75-110 BUN (test code=BUN) 34.0 mg/dl 6.0-17.0 Creatinine (test code=CREA) 1.3 mg/dl 0.4-1.2 Sodium (test code=NA) 131 mmol/l 137-145 Potassium (test code=K) 4.5 mmol/l 3.5-5.0 Chloride (test code=CL) 92 mmol/l 98-107 CO2 (test code=CO2) 30 mmol/l 22-30 Calcium (test code=CALC) 9.8 mg/dl 8.4-10.2 EGFR if (test code=EGFRAA) 52 mL/min/1.73m\\S\\2 EGFR if Non- (test code=EGFRNA) 43 mL/min/1.73m\\S\\2 Estimated Glomerular Filtration Rate (eGFR) Reference Intervals Decision Points for 18 years and older and average body mass: >=60 Does not exclude kidney disease. 30 - 59 Suggests moderate chronic kidney disease and indicates the need for further investigation including assessment of proteinuria and cardiovascular factors. < 30 Usually indicates a need for referral for assessment and management of chronic kidney failure. CBC WITH AUTO [id number] 09:27:00* Test Item Value Reference Range Comments WBC (test code=WBC) 6.24 10\\S\\3/ul 4.80-10.80 RBC (test code=RBC) 2.91 10\\S\\6/ul 4.20-5.40 Hemoglobin (test code=HGB) 8.0 gm/dl 12.0-14.0 Hematocrit (test code=HCT) 24.9 % 37.0-47.0 MCV (test code=MCV) 85.6 fL 81.0-99.0 MCH (test code=MCH) 27.5 pg 27.0-31.0 MCHC (test code=MCHC) 32.1 gm/dl 33.0-37.0 RDW (test code=RDWVC) 14.3 % 11.5-14.5 Platelet (test code=PLT) 412 10\\S\\3/ul 130-400 MPV (test code=MPV) 8.0 fL 7.4-10.4 "NOT MEASURED" RESULTS ARE DISPLAYED WHEN THE INSTRUMENT HAS A SUPPRESSED OR UNREPORTABLE RESULT. THIS WILL MOST OFTEN HAPPEN WITH THE MPV WHEN THERE IS AN ABNORMAL PLATELET DISTRIBUTION DUE TO A CR ITICAL LOW VALUE OR PLATELET CLUMPING. THE RDW MAY BE SUPPRESSED IF THERE ARE MULTIPLE PEAKS PRESENT ON THE RBC HISTOGRAM. IN THIS CASE, A MANUAL REVIEW OF THE SLIDE WILL BE PERFORMED, AND RBC MORPHOLOGY WILL BE NOTED ON THE REPORT. NE% (test code=NE) 75.0 % 42.0-75.0 LY% (test code=LY) 12.7 % 13.0-42.0 MO% (test code=MO) 10.1 % 4.0-14.0 EO% (test code=EO) 1.1 % 1.0-5.0 BA% (test code=BA) 0.3 % 0.0-3.0 IG% (test code=IG%) 0.8 % 0.0-0.4 [id number] 12:30:00* Test Item Value Reference Range Comments Glucose (test code=GLU) 128 mg/dl 74-106 BUN (test code=BUN) 30.0 mg/dl 7.0-18.0 Creatinine (test code=CREA) 1.3 mg/dl 0.5-1.3 Sodium (test code=NA) 127 mmol/l 137-145 Potassium (test code=K) 4.2 mmol/l 3.5-5.1 Chloride (test code=CL) 88 mmol/l 98-107 CO2 (test code=CO2) 31 mmol/l 21-32 Calcium (test code=CALC) 9.6 mg/dl 8.5-10.1 T Protein (test code=TP) 6.5 gm/dl 6.4-8.2 Albumin (test code=ALB) 2.7 gm/dl 3.4-5.0 A/G Ratio (test code=AGRAT) 0.7 % 1.1-2.2 AST (SGOT) (test code=AST) 40 U/L 15-37 ALT (SGPT) (test code=ALT) 35 U/L 13-61 Alkaline Phos (test code=ALKP) 119 U/L 45-117 Total Bilirubin (test code=TBIL) 0.5 mg/dl 0.2-1.0 Globulin (test code=GLOBU) 3.8 gm/dl 2.3-3.5 Calcium, Corrected (test code=CALCCORR) 10.6 mg/dl 8.4-10.2 Various formulas exist for corrected serum calcium results, each yielding different values. This corrected result was based on the formula: Corrected Calcium=SerumCalcium + [0.8 * ( 4 - SerumAlbumin)] EGFR if (test code=EGFRAA) 52 mL/min/1.73m\\S\\2 EGFR if Non- (test code=EGFRNA) 43 mL/min/1.73m\\S\\2 Estimated Glomerular Filtration Rate (eGFR) Reference Intervals Decision Points for 18 years and older and average body mass: >=60 Does not exclude kidney disease. 30 - 59 Suggests moderate chronic kidney disease and indicates the need for further investigation including assessment of proteinuria and cardiovascular factors. < 30 Usually indicates a need for referral for assessment and management of chronic kidney failure. [id number] 11:03:00* Test Item Value Reference Range Comments aPTT (test code=PTT) 32.5 seconds 25.3-35.7 PT AND [id number] 11:03:00* Test Item Value Reference Range Comments Protime (test code=PT) 10.3 seconds 9.0-11.8 INR (test code=INR) 1.0 0.9-1.1 INR results are intended ONLY to monitor Oral Anticoagulant therapy in stablized patients. The INR Therapeutic Range is 2.0 - 3.0 Patients with a mechanical heart, the INR Range is 2.5 - 3.5 URINALYSIS WITHOUT [id number] 10:59:00* Test Item Value Reference Range Comments Color (test code=UCOLR) YELLOW Clarity (test code=UCLAR) CLEAR Glucose (test code=UGLUC) NEGATIVE NEGATIVE Bilirubin (test code=UBILI) NEGATIVE NEGATIVE Ketones (test code=UKET) NEGATIVE NEGATIVE Specific [place] (test code=USPGR) 1.020 1.005-1.030 Blood (test code=UBLD) TRACE-INTACT NEGATIVE PH (test code=UPH) 6.0 4.5-8.0 Protein (test code=UPROT) NEGATIVE NEGATIVE Urobilinogen (test code=U UROB) 0.2 >0.2 Nitrite (test code=UNITR) NEGATIVE NEGATIVE Leukocyte Esterase (test code=ULEUK) TRACE NEGATIVE XR CHEST 2 PA [id number] 10:49:21EXAMINATION: XR CHEST 2 PA LATERALINDICATION: [id number]: Preoperative stateCOMPARISON: Chest x-ray April 19, 2018.FINDINGS: PA and lateral viewsTUBES and LINES: None.LUNGS: Lungs are well inflated. Biapical pleural parenchymal scarring.Platelike atelectasis of left lung base. Lungs are otherwise clear. There isno evidence of pneumonia or pulmonary edema.PLEURA: No pleural effusion or pneumothorax.HEART AND MEDIASTINUM: The cardiomediastinal silhouette is unremarkable. Thereare atherosclerotic calcifications within the aorta.BONES AND SOFT TISSUES: No acute osseous lesion. Soft tissues areunremarkable.UPPER ABDOMEN: No free air under the diaphragm.IMPRESSION:No acute thoracic abnormality.This final report was electronically signed by Dr Karthik Omer MD 05/02/2018 10:42 AMDictated By: Khoi OMER: 05/02/2018 10:42CBC (HEMOGRAM ONLY)2018-05-02 10:49:00* Test Item Value Reference Range Comments WBC (test code=WBC) 6.62 10\\S\\3/ul 4.80-10.80 RBC (test code=RBC) 2.98 10\\S\\6/ul 4.20-5.40 Hemoglobin (test code=HGB) 8.2 gm/dl 12.0-14.0 Hematocrit (test code=HCT) 25.5 % 37.0-47.0 MCV (test code=MCV) 85.6 fL 81.0-99.0 MCH (test code=MCH) 27.5 pg 27.0-31.0 MCHC (test code=MCHC) 32.2 gm/dl 33.0-37.0 RDW (test code=RDWVC) 14.3 % 11.5-14.5 Platelet (test code=PLT) 462 10\\S\\3/ul 130-400 MPV (test code=MPV) 8.5 fL 7.4-10.4 "NOT MEASURED" RESULTS ARE DISPLAYED WHEN THE INSTRUMENT HAS A SUPPRESSED OR UNREPORTABLE RESULT. THIS WILL MOST OFTEN HAPPEN WITH THE MPV WHEN THERE IS AN ABNORMAL PLATELET DISTRIBUTION DUE TO A CR ITICAL LOW VALUE OR PLATELET CLUMPING. THE RDW MAY BE SUPPRESSED IF THERE ARE MULTIPLE PEAKS PRESENT ON THE RBC HISTOGRAM. IN THIS CASE, A MANUAL REVIEW OF THE SLIDE WILL BE PERFORMED, AND RBC MORPHOLOGY WILL BE NOTED ON THE REPORT. MRI BRAIN W/O [id number] 10:36:51Right eye droop, no other deficits. Procedure: MRI BRAIN W/O CONTRASTOrder Date: 04/20/2018 7:01 AMOrdering Provide r: DR BHAKTA [facility] [place] Ind[place]: [id number]: Cerebrovascular accidentCompa rison: March 30, 2018Technique: Multiplanar, multisequence images of the brain were obtained withoutadministration of intravenous gadolinium based contrast.Fi ndings:No evidence of diffusion restriction to suggest acute infarct.Scattered a reas of T2/Flair signal elevation are seen involving theperiventricular and subc ortical white matter likely technology sales representative of smallvessel occlusive disease. Anamaria bal parenchymal volume loss is present.There is no extra-axial fluid collection. No acute or chronic intracranialhemorrhage is seen.No evidence of cerebellar to nsillar herniation. Sellar/suprasellar structuresare intact. The cervicomedullar y junction is within normal limits.Impression:1. No acute infarction.2. Moderate microvascular ischemic changes.This final report was electronically signed by Dr Antolin Cruz MD 04/20/201810:30 AMDictated By: EVELIA CRUZKDate: 04/20/2018 10:30XR LUMBAR SPINE (AP/LATERAL)2018-04-20 08:02:41Lumbar spine AP lateral, 3 views:History: Low back painAP, lateral and spot lateral views were obtained. Comparison is made to 2018.There is a stable compression fracture of the L3 vertebral body. No newcompression fracture is identified. There is stable grade 1 spondylolisthesis atL4-5 again noted. There is generalized osteopenia. A very mild levoscoliosis isagain present. Findings are stable compared to the recent examination.Impression: No significant interval change.This final report was electronically signed by Dr Abdullahi Baker MD 04/20/20187:56 AMDictated By: ABDULLAHI BAKERDate: 04/20/2018 07:56US CAROTID BILAT [id number] 06:35:03Procedure: US CAROTID BILAT DopplerOrder Date: 04/19/2018 10:05 PMOrdering Provider: DR BHAKTA [facility]ical Indication: [id number]: Cerebrovascular accidentComparison: 2009TECHNIQUE : Real-time cerebrovascular ultrasonography was obtained from sternalnotch to the angle of the mandible bilaterally utilizing landeros scale, color flowand spectral Doppler analysis. Systolic velocity ratios were calculated forinternal carotid artery to common carotid artery bilaterally.FINDINGS:RIGHT CAROTID BIFURCATION: Moderate atherosclerotic plaque. Peak systolic andend-diastolic velocities in the right internal carotid artery are 168 and 45cm/s. Internal carotid/common carotid ratio is 2.0. Right vertebral flow isantegrade.LEFT CAROTID BIFURCATION: Moderate atherosclerotic plaque. Peak systolic andend-diastolic velocities in the left internal carotid artery are 205 and 47cm/s. Internal carotid/common carotid ratio is 2.4. Left vertebral flow isantegrade.IMPRESSION:1. Moderate atherosclerotic plaque in each carotid bulb and ICA origin.2. There is 50-59% stenosis of the bilateral proximal ICA/ICA origins..3. Bilateral antegrade vertebral artery flow.This final report was electronically signed by Dr Antolin Cruz MD 04/20/20186:28 AMDictated By: EVELIA CRUZKDate: 04/20/2018 06:28 CORONARY [id number] 05:38:00* Test Item Value Reference Range Comments Triglycerides (test code=TRIG) 116 mg/dl 0-149 Trig. Interpretation Guide: Normal: < 150 mg/dl Borderline High: 150 - 199 mg/dl High: 200 - 499 mg/dl Very High: >=500 mg/dl Cholesterol (test code=CHOL) 147 mg/dl 0-200 HDL (test code=HDL) 39 mg/dl 35-86 dLDL (test code=DILDL) 93 mg/dl 0-99 Direct LDL Intrepretations: Optimal: <100 mg/dl Suspect: 100 - 129 mg/dl Borderline: 130 - 159 mg/dl High: 160 - 189 mg/dl Very High: >190 mg/dl Risk Factor (test code=RFACT) 3.8 0.0-4.4 Risk Factor Men Women Risk Factor 3.4 3.3 1/2 Average 5.0 4.4 Average 9.6 7.1 2X Average 24.0 11.0 3X Average vLDL (test code=VLDL) 23 mg/dl 20-50 NM BONE SCAN WHOLE [id number] 16:35:35Whole body bone scan:History: Low back painA whole-body bone scan was performed following intravenous injection of 26.0 mCiof technetium 99m MDP.There is bandlike increased activity in the mid lumbar region corresponding francisco L3 compression fracture noted on plain films dated April 05, 2018.Increased activity is present in the left humeral head. Review of the chestx-ray from 2018 shows lucency in the medial aspect of the lefthumeral head. The possibility of neoplasm is not excluded.There is increased activity noted in the frontal calvarium which appears tocorrespond to hyperostosis frontalis interna when correlated with CT head fromthe same day. Slightly increased activity in the right hip may reflectdegenerative changes but can be correlated with plain films.Physiologic activity is present in the kidneys and bladder.Impression:1. Compression fracture of L3 corresponding to findings on recent lumbar spineexamination.2. Activity in the left humeral head with asymmetric lucency noted on plain filmexamination. Neoplasm is not excluded. Consider followup MRI of the shoulderwith attention to the humerus.3. Other findings as detailed above.This final report was electronically signed by Dr Abdullahi Baker MD 04/19/20184:29 PMDictated By: ABDULLAHI BAKERDate: 04/19/2018 16:29XR CHEST AP/PA 1 [id number] 15:33:59Portable chest April 19, 2018 at 1416 hrs.History: Altered mental statusCompared to 2018. Subsegmental atelectasis is again noted in theleft lung base. The lungs otherwise appear clear. Cardiac size is within normallimits. There are no acute bony abnormalities.Impression: Minimal left basilar atelectasis.This final report was electronically signed by Dr Abdullahi Baker MD 04/19/20183:27 PMDictated By: ABDULLAHI BAKERDate: 04/19/2018 15:[id number] 15:11:00* Test Item Value Reference Range Comments aPTT (test code=PTT) 31.7 seconds 25.3-35.7 PT AND [id number] 15:11:00* Test Item Value Reference Range Comments Protime (test code=PT) 10.3 seconds 9.0-11.8 INR (test code=INR) 1.0 0.9-1.1 INR results are intended ONLY to monitor Oral Anticoagulant therapy in stablized patients. The INR Therapeutic Range is 2.0 - 3.0 Patients with a mechanical heart, the INR Range is 2.5 - 3.5 URINALYSIS WITH [id number] 14:58:00* Test Item Value Reference Range Comments Color (test code=UCOLR) LT. YELLOW Clarity (test code=UCLAR) CLEAR Glucose (test code=UGLUC) NEGATIVE NEGATIVE Bilirubin (test code=UBILI) NEGATIVE NEGATIVE Ketones (test code=UKET) NEGATIVE NEGATIVE Specific [place] (test code=USPGR) 1.010 1.005-1.030 Blood (test code=UBLD) TRACE-INTACT NEGATIVE PH (test code=UPH) 6.0 4.5-8.0 Protein (test code=UPROT) NEGATIVE NEGATIVE Urobilinogen (test code=U UROB) 0.2 >0.2 Nitrite (test code=UNITR) NEGATIVE NEGATIVE Leukocyte Esterase (test code=ULEUK) NEGATIVE NEGATIVE WBC (test code=WBCUR) 2-5 0-5 RBC (test code=RBCUR) 0-3 0-5 Epithial Cells (test code=U EPI) 0-5 0-10 Mucous (test code=UMUC) Trace None Seen Bacteria (test code=UBACT) Trace None Seen,Trace Crystals Urine (test code=URCRYS) None Seen None Seen PRO-BNP(B-Type Natriuretic Peptide)2018-04-19 14:58:00* Test Item Value Reference Range Comments Pro-BNP(B-Peptide) (test code=PROBNP) 671 pg/ml 0-125 TROPONIN-I [id number] 14:58:00* Test Item Value Reference Range Comments Troponin-I (test code=TROP) <0.015 ng/ml 0.000-0.034 The 99th Percentile URL is 0.045 ng/mL for the Siemens [place] Troponin I. The Joint Society of Cardiology/[place] [employer] (ESC/ACC) and the National [...] first 24 hours after the clinical event. [id number] 14:49:00* Test Item Value Reference Range Comments Glucose (test code=GLU) 104 mg/dl 75-110 BUN (test code=BUN) 19.0 mg/dl 6.0-17.0 Creatinine (test code=CREA) 1.2 mg/dl 0.4-1.2 Sodium (test code=NA) 128 mmol/l 137-145 Potassium (test code=K) 4.1 mmol/l 3.5-5.0 Chloride (test code=CL) 93 mmol/l 98-107 CO2 (test code=CO2) 30 mmol/l 22-30 Calcium (test code=CALC) 9.1 mg/dl 8.4-10.2 T Protein (test code=TP) 6.9 gm/dl 5.1-8.7 Albumin (test code=ALB) 2.8 gm/dl 3.5-4.6 A/G Ratio (test code=AGRAT) 0.7 % 1.1-2.2 AST (SGOT) (test code=AST) 15 U/L 11-36 ALT (SGPT) (test code=ALT) 19 U/L 11-40 Alkaline Phos (test code=ALKP) 95 U/L 47-114 Total Bilirubin (test code=TBIL) 0.4 mg/dl 0.2-1.2 Globulin (test code=GLOBU) 4.1 gm/dl 2.3-3.5 Calcium, Corrected (test code=CALCCORR) 10.1 mg/dl 8.4-10.2 Various formulas exist for corrected serum calcium results, each yielding different values. This corrected result was based on the formula: Corrected Calcium=SerumCalcium + [0.8 * ( 4 - SerumAlbumin)] EGFR if (test code=EGFRAA) 57 mL/min/1.73m\\S\\2 EGFR if Non- (test code=EGFRNA) 47 mL/min/1.73m\\S\\2 Estimated Glomerular Filtration Rate (eGFR) Reference Intervals Decision Points for 18 years and older and average body mass: >=60 Does not exclude kidney disease. 30 - 59 Suggests moderate chronic kidney disease and indicates the need for further investigation including assessment of proteinuria and cardiovascular factors. < 30 Usually indicates a need for referral for assessment and management of chronic kidney failure. CT HEAD W/O [id number] 14:22:48CT HEAD WITHOUT CONTRAST:DATE OF EXAM: 04/19/2018INDICATION: Weakness of face musclesNoncontrast CT head was performed. Dose reduction technique was employed usingautomated exposure control and adjustment of mA and/or kV according to patientsize. Total DLP 856 mGy- cm.FINDINGS:No intracranial hemorrhage, mass effect or midline shift is identified. Corticalatrophy is noted with associated mild compensatory ventricular dilatation. Thereis no obstructive hydrocephalus. A small chronic appearing lacunar infarct inthe anterior limb right [...] report was electronically sign ed by Dr Abdullahi Baker MD 04/19/20182:16 PMDictated By: ABDULLAHI BAKERDate: 04/19/2018 14:16CBC WITH AUTO [id number] 14:22:00* Test Item Value Reference Range Comments WBC (test code=WBC) 6.99 10\\S\\3/ul 4.80-10.80 RBC (test code=RBC) 3.07 10\\S\\6/ul 4.20-5.40 Hemoglobin (test code=HGB) 8.7 gm/dl 12.0-14.0 Hematocrit (test code=HCT) 26.0 % 37.0-47.0 MCV (test code=MCV) 84.7 fL 81.0-99.0 MCH (test code=MCH) 28.3 pg 27.0-31.0 MCHC (test code=MCHC) 33.5 gm/dl 33.0-37.0 RDW (test code=RDWVC) 14.5 % 11.5-14.5 Platelet (test code=PLT) 429 10\\S\\3/ul 130-400 MPV (test code=MPV) 8.0 fL 7.4-10.4 "NOT MEASURED" RESULTS ARE DISPLAYED WHEN THE INSTRUMENT HAS A SUPPRESSED OR UNREPORTABLE RESULT. THIS WILL MOST OFTEN HAPPEN WITH THE MPV WHEN THERE IS AN ABNORMAL PLATELET DISTRIBUTION DUE TO A CR ITICAL LOW VALUE OR PLATELET CLUMPING. THE RDW MAY BE SUPPRESSED IF THERE ARE MULTIPLE PEAKS PRESENT ON THE RBC HISTOGRAM. IN THIS CASE, A MANUAL REVIEW OF THE SLIDE WILL BE PERFORMED, AND RBC MORPHOLOGY WILL BE NOTED ON THE REPORT. NE% (test code=NE) 71.7 % 42.0-75.0 LY% (test code=LY) 15.6 % 13.0-42.0 MO% (test code=MO) 10.9 % 4.0-14.0 EO% (test code=EO) 0.4 % 1.0-5.0 BA% (test code=BA) 0.3 % 0.0-3.0 IG% (test code=IG%) 1.1 % 0.0-0.4 XR CHEST AP/PA 1 [id number] 15:33:05Portable chest 2018 at 1433 hrs.History: WeaknessComparison 418. The lungs are hyperinflated and are clear of infiltrates.Subsegmental atelectasis is present in the left base. Cardiac size is withinnormal limits. There are no acute bony abnormalities.Impression: Hyperinflation with limited left basilar atelectasis.This final report was electronically signed by Dr Abdullahi Baker MD 04/14/20183:26 PMDictated By: ABDULLAHI BAKERDate: 2018 15:[id number] 14:53:00* Test Item Value Reference Range Comments Glucose (test code=GLU) 119 mg/dl 75-110 BUN (test code=BUN) 19.0 mg/dl 6.0-17.0 Creatinine (test code=CREA) 1.0 mg/dl 0.4-1.2 Sodium (test code=NA) 130 mmol/l 137-145 Potassium (test code=K) 4.8 mmol/l 3.5-5.0 Chloride (test code=CL) 93 mmol/l 98-107 CO2 (test code=CO2) 29 mmol/l 22-30 Calcium (test code=CALC) 9.3 mg/dl 8.4-10.2 T Protein (test code=TP) 6.9 gm/dl 5.1-8.7 Albumin (test code=ALB) 3.1 gm/dl 3.5-4.6 A/G Ratio (test code=AGRAT) 0.8 % 1.1-2.2 AST (SGOT) (test code=AST) 25 U/L 11-36 ALT (SGPT) (test code=ALT) 24 U/L 11-40 Alkaline Phos (test code=ALKP) 101 U/L 47-114 Total Bilirubin (test code=TBIL) 0.4 mg/dl 0.2-1.2 Globulin (test code=GLOBU) 3.8 gm/dl 2.3-3.5 Calcium, Corrected (test code=CALCCORR) 10.0 mg/dl 8.4-10.2 Various formulas exist for corrected serum calcium results, each yielding different values. This corrected result was based on the formula: Corrected Calcium=SerumCalcium + [0.8 * ( 4 - SerumAlbumin)] EGFR if (test code=EGFRAA) >60 mL/min/1.73m\\S\\2 EGFR if Non- (test code=EGFRNA) 58 mL/min/1.73m\\S\\2 Estimated Glomerular Filtration Rate (eGFR) Reference Intervals Decision Points for 18 years and older and average body mass: >=60 Does not exclude kidney disease. 30 - 59 Suggests moderate chronic kidney disease and indicates the need for further investigation including assessment of proteinuria and cardiovascular factors. < 30 Usually indicates a need for referral for assessment and management of chronic kidney failure. LIPASE, [id number] 14:53:00* Test Item Value Reference Range Comments Lipase (test code=LIPA) 49 U/L 8-223 TROPONIN-I [id number] 14:51:00* Test Item Value Reference Range Comments Troponin-I (test code=TROP) <0.015 ng/ml 0.000-0.034 The 99th Percentile URL is 0.045 ng/mL for the Siemens [place] Troponin I. The Joint Society of Cardiology/[place] [employer]iology (ESC/ACC) and the National [...] first 24 hours after the clinical event. OCCULT BLOOD (ONE SPECIMEN)2018 14:48:00* Test Item Value Reference Range Comments Occult Blood (test code=OB) Negative Negative URINALYSIS WITH [id number] 14:26:00* Test Item Value Reference Range Comments Color (test code=UCOLR) LT. YELLOW Clarity (test code=UCLAR) CLEAR Glucose (test code=UGLUC) NEGATIVE NEGATIVE Bilirubin (test code=UBILI) NEGATIVE NEGATIVE Ketones (test code=UKET) NEGATIVE NEGATIVE Specific [place] (test code=USPGR) 1.010 1.005-1.030 Blood (test code=UBLD) NEGATIVE NEGATIVE PH (test code=UPH) 7.0 4.5-8.0 Protein (test code=UPROT) NEGATIVE NEGATIVE Urobilinogen (test code=U UROB) 0.2 >0.2 Nitrite (test code=UNITR) NEGATIVE NEGATIVE Leukocyte Esterase (test code=ULEUK) TRACE NEGATIVE WBC (test code=WBCUR) 0-3 0-5 RBC (test code=RBCUR) 0-2 0-5 Epithial Cells (test code=U EPI) 5-10 0-10 Mucous (test code=UMUC) Trace None Seen Bacteria (test code=UBACT) Trace None Seen,Trace Crystals Urine (test code=URCRYS) Few Amorphous Sediment None Seen CBC WITH AUTO [id number] 14:10:00* Test Item Value Reference Range Comments WBC (test code=WBC) 6.07 10\\S\\3/ul 4.80-10.80 RBC (test code=RBC) 3.22 10\\S\\6/ul 4.20-5.40 Hemoglobin (test code=HGB) 9.0 gm/dl 12.0-14.0 Hematocrit (test code=HCT) 27.8 % 37.0-47.0 MCV (test code=MCV) 86.3 fL 81.0-99.0 MCH (test code=MCH) 28.0 pg 27.0-31.0 MCHC (test code=MCHC) 32.4 gm/dl 33.0-37.0 RDW (test code=RDWVC) 14.7 % 11.5-14.5 Platelet (test code=PLT) 473 10\\S\\3/ul 130-400 MPV (test code=MPV) 8.1 fL 7.4-10.4 "NOT MEASURED" RESULTS ARE DISPLAYED WHEN THE INSTRUMENT HAS A SUPPRESSED OR UNREPORTABLE RESULT. THIS WILL MOST OFTEN HAPPEN WITH THE MPV WHEN THERE IS AN ABNORMAL PLATELET DISTRIBUTION DUE TO A CR ITICAL LOW VALUE OR PLATELET CLUMPING. THE RDW MAY BE SUPPRESSED IF THERE ARE MULTIPLE PEAKS PRESENT ON THE RBC HISTOGRAM. IN THIS CASE, A MANUAL REVIEW OF THE SLIDE WILL BE PERFORMED, AND RBC MORPHOLOGY WILL BE NOTED ON THE REPORT. NE% (test code=NE) 72.5 % 42.0-75.0 LY% (test code=LY) 15.5 % 13.0-42.0 MO% (test code=MO) 10.4 % 4.0-14.0 EO% (test code=EO) 0.3 % 1.0-5.0 BA% (test code=BA) 0.3 % 0.0-3.0 IG% (test code=IG%) 1.0 % 0.0-0.4 XR L-S SPINE MIN 4 [id number] 12:52:20Lumbar spine series 5 views:History: Low back painAP, lateral, spot lateral and both oblique views were obtained. There is a mildlevoscoliosis. A compression fracture of the superior endplate of L3 is notedwhich appears to be an interval change from lateral chest x-ray dated 2017. There is near 50% maximal compression with no retropulsion orsubluxation noted.The remaining lumbar vertebral body heights are well- maintained. There is grade1 spondylolisthesis of L4 on L5 with approximately 7 mm anterolisthesis of G3wrvni. No disc space narrowing is identified. Facet arthrosis is present in thelower lumbar region but no pars defects are identified. There is generalizedosteopenia.Impression: Compression fracture of L3 as described, new from December 29, 2017.Other findings as noted above.This final report was electronically signed by Dr Abdullahi Baker MD 04/05/201812:46 PMDictated By: ABDULLAHI BAKERDate: 04/05/2018 12:46XR CHEST 2 PA LATERAL 2017-12-29 11:22:00PA and lateral chest:Exam Date: 12/29/2017History: BronchitisCompared to February 05, 2014.Hyperinflation is again noted. The lungs are clear. The cardiomediastinalsilhouette is within normal limits. There are no significant bony abnormalities.Impression: Stable chest. Emphysematous changes with no acute abnormalityidentified.This final report was electronically signed by Dr Abdullahi Baker MD 12/29/201711:15 AMDictated By: ABDULLAHI BAKERDate: 12/29/2017 11:15MM MAMMO SCRN 3D [id number] 16:01:20Procedure: MM MAMMO SCRN 3D TOMOExam Date: 12/26/2017 1:15 PMOrdering Provider: ISABEL Ornelasinical Indication: Digital screening mammography.Comparison: December 15, 2016 and October 01, 2015Technique: 3-D tomosynthesis views of both breasts were obtained. The study isinterpreted using computer-aided [...] electronically signed by Dr Abdullahi Baker MD 12/26/20173:55 PMDictated By: ABDULLAHI BAKERDate: 12/26/2017 15:55
--- OUTSIDE RECORDS SUMMARY | 2018-07-30 19:22 | XMS REPORT | Continuity of Care Document ---
Author Author [facility] Address [address] [place] [address] ;ext= Care Team Providers Care Casing In Line Feeder Name Role Phone JONATHAN BACON Admyoel JONATHAN BACON [facility] Admission Diagnosis Code Admission Diagnosis Date [id number] Asthenia Social History Element Description Code Description Smoking Status Code System Start Date End Date Smoking Status [id number] Never smoker SNOMED-CT Problems Code Code System Problem Name Start Date End Date Status General Weakness 2018 Active 560703334 SNOMED-CT Shoulder strain 09/23/2016 Active [id number] SNOMED-CT Shoulder pain 09/23/2016 Active Medications RxNorm Medication Dose Route Instructions Indications Start Date End Date Status [id number] tramadol hydrochloride 50 MG Oral Tablet 50 milligram oral orally every 8 hours as needed. (as needed for pain) Active Allergies * No Known Allergies Results Laboratory Results Order: OCCULT BLOOD ONE SPECIMEN Specimen Source: STOOL Body Site: LOINC Test Result Flag Range Unit Date 1Occult Blood Negative Negative 2018 14:44 * Performing Lab Footnotes:* [address] [place] [address] - [id number] - [address] [address] LAMONT Molina MD: DIRECTOR MARGARET PADILLA Order: UA URINALYSIS WITH MICROSCOPY Specimen Source: URINE SPECIMENS Body Site: [facility] Test Result Flag Range Unit Date 5778-6 1Color:Type:Pt:Urine:Nom LT. YELLOW 2018 14:00 5767-9 1Appearance:Aper:Pt:Urine:Nom CLEAR 2018 14:00 2349-9 1Glucose:ACnc:Pt:Urine:Ord NEGATIVE NEGATIVE 2018 14:00 5770-3 1Bilirubin:ACnc:Pt:Urine:Ord:Test strip NEGATIVE NEGATIVE 2018 14:00 2514-8 1Ketones:ACnc:Pt:Urine:Ord:Test strip NEGATIVE NEGATIVE 2018 14:00 5811-5 1Specific gravity:Rden:Pt:Urine:Qn:Test strip 1.010 A 1.005-1.030 2018 14:00 5794-3 1Hemoglobin:ACnc:Pt:Urine:Ord:Test strip NEGATIVE NEGATIVE 2018 14:00 5803-2 1pH:LsCnc:Pt:Urine:Qn:Test strip 7.0 A 4.5-8.0 2018 14:00 46225-6 1Protein:ACnc:Pt:Urine:Ord:Test strip NEGATIVE NEGATIVE 2018 14:00 5818-0 1Urobilinogen:ACnc:Pt:Urine:Ord:Test strip 0.2 0.2 2018 14:00 5802-4 1Nitrite:ACnc:Pt:Urine:Ord:Test strip NEGATIVE NEGATIVE 2018 14:00 5799-2 1Leukocyte esterase:ACnc:Pt:Urine:Ord:Test strip TRACE A NEGATIVE 2018 14:00 5821-4 1Leukocytes:Naric:Pt:Urine sed:Qn:Microscopy.light.HPF 0-3 A 0-5 2018 14:00 77959-6 1Erythrocytes:Naric:Pt:Urine sed:Qn:Microscopy.light.HPF 0-2 A 0-5 2018 14:00 53889-7 1Epithelial cells.squamous:Naric:Pt:Urine sed:Qn:Microscopy.light.HPF 5-10 A 0-10 2018 14:00 8247-9 1Mucus:ACnc:Pt:Urine sed:Ord:Microscopy.light Trace A None Seen 2018 14:00 5769-5 1Bacteria:Naric:Pt:Urine sed:Qn:Microscopy.light.HPF Trace None Seen,Trace 2018 14:00 5782-8 1Crystals:Prid:Pt:Urine sed:Nom:Microscopy.light Few Amorphous Sediment A None Seen 2018 14:00 * Performing Lab Footnotes:* [address] [place] [address] - [id number] - [address] [place] [address] - MD: DIRECTOR MARGARET PADILLA Order: CBC PLATELET AUTO DIFF Specimen Source: BLOOD Body Site: LOINC Test Result Flag Range Unit Date 24391-7 1Leukocytes^^corrected for nucleated erythrocytes:NCnc:Pt:Bld:Qn:Automated count 6.07 4.80-10.80 10^3/ul 2018 13:45 789-8 1Erythrocytes:NCnc:Pt:Bld:Qn:Automated count 3.22 L 4.20-5.40 10^6/ul 2018 13:45 718-7 1Hemoglobin:MCnc:Pt:Bld:Qn 9 L 12.0-14.0 gm/dl 2018 13:45 4544-3 1Hematocrit:VFr:Pt:Bld:Qn:Automated count 27.8 L 37.0-47.0 % 2018 13:45 787-2 1Erythrocyte mean corpuscular volume:EntVol:Pt:RBC:Qn:Automated count 86.3 81.0-99.0 fL 2018 13:45 785-6 1Erythrocyte mean corpuscular hemoglobin:EntMass:Pt:RBC:Qn:Automated count 28 27.0-31.0 pg 2018 13:45 786-4 1Erythrocyte mean corpuscular hemoglobin concentration:MCnc:Pt:RBC:Qn:Automated count 32.4 L 33.0-37.0 gm/dl 2018 13:45 788-0 1Erythrocyte distribution width:Ratio:Pt:RBC:Qn:Automated count 14.7 H 11.5-14.5 % 2018 13:45 777-3 1Platelets:NCnc:Pt:Bld:Qn:Automated count 473 H 130-400 10^3/ul 2018 13:45 20323-9 1Platelet mean volume:EntVol:Pt:Bld:Qn:Automated count 8.1 A 7.4-10.4 fL 2018 13:45 Note: 'NOT MEASURED' RESULTS ARE DISPLAYED WHEN [...] ON THE REPORT. 770-8 1Neutrophils/100 leukocytes:NFr:Pt:Bld:Qn:Automated count 72.5 42.0-75.0 % 2018 13:45 736-9 1Lymphocytes/100 leukocytes:NFr:Pt:Bld:Qn:Automated count 15.5 13.0-42.0 % 2018 13:45 5905-5 1Monocytes/100 leukocytes:NFr:Pt:Bld:Qn:Automated count 10.4 4.0-14.0 % 2018 13:45 713-8 1Eosinophils/100 leukocytes:NFr:Pt:Bld:Qn:Automated count 0.3 L 1.0-5.0 % 2018 13:45 706-2 1Basophils/100 leukocytes:NFr:Pt:Bld:Qn:Automated count 0.3 0.0-3.0 % 2018 13:45 1IG% 1 H 0.0-0.4 % 2018 13:45 * Performing Lab Footnotes:* [address] [place] [address] [id number] - [address] [place] [address] - MD: DIRECTOR MARGARET PADILLA Order: CMP COMPREHENSIVE METABOLIC PANEL Specimen Source: BLOOD Body Site: LOINC Test Result Flag Range Unit Date 1Glucose 119 H 75-110 mg/dl 2018 13:45 1BUN 19 H 6.0-17.0 mg/dl 2018 13:45 1Creatinine 1 0.4-1.2 mg/dl 2018 13:45 1Sodium 130 L 137-145 mmol/l 2018 13:45 1Potassium 4.8 3.5-5.0 mmol/l 2018 13:45 1Chloride 93 L 98-107 mmol/l 2018 13:45 1CO2 29 22-30 mmol/l 2018 13:45 1Calcium 9.3 8.4-10.2 mg/dl 2018 13:45 1T Protein 6.9 5.1-8.7 gm/dl 2018 13:45 1Albumin 3.1 L 3.5-4.6 gm/dl 2018 13:45 1A/G Ratio 0.8 L 1.1-2.2 % 2018 13:45 1AST (SGOT) 25 11-36 U/L 2018 13:45 1ALT (SGPT) 24 11-40 U/L 2018 13:45 1Alkaline Phos 101 47-114 U/L 2018 13:45 1Total Bilirubin 0.4 0.2-1.2 mg/dl 2018 13:45 1Globulin 3.8 H 2.3-3.5 gm/dl 2018 13:45 1Calcium, Corrected 10 8.4-10.2 mg/dl 2018 13:45 Note: Various formulas exist for corrected serum calcium results, each yielding different values. This corrected result was based on the formula: Corrected Calcium=SerumCalcium + [0.8 * ( 4 - SerumAlbumin)] 1EGFR if >60 mL/min/1.73m^2 2018 13:45 1EGFR if Non- 58 mL/min/1.73m^2 2018 13:45 Note: Estimated Glomerular Filtration Rate (eGFR) Reference [...] chronic kidney failure. * Performing Lab Footnotes:* 1[facility] - [id number] - [address] [place] [address] LAMONT - : DIRECTOR MARGARET PADILLA Order: LIPASE SERUM Specimen Source: BLOOD Body Site: [facility] Test Result Flag Range Unit Date 1Lipase 49 8-223 U/L 2018 13:45 * Performing Lab Footnotes:* [facility] [id number] [place] [address] LAMONT Molina MD: DIRECTOR MARGARET PADILLA Order: TROPONIN I QUANTITATIVE Specimen Source: BLOOD Body Site: LOINC Test Result Flag Range Unit Date 1Troponin-I <0.015 0.000-0.034 ng/ml 2018 13:45 Note: The 99th Percentile URL is 0.045 ng/mL for the Siemens [place] Troponin I. The Joint Society of Cardiology/[place] [employer] (ESC/ACC) and the National [...] the clinical event. * Performing Lab Footnotes:* [facility] [id number] - [address] [place] [address] LAMONT Molina MD: DIRECTOR MARGARET PADILLA Radiology Results Order: [id number] XR CHEST AP/PA 1 VIEW* Exam Completion Date:2018 13:22 Portable chest 2018 at 1433 hrs.History: WeaknessComparison 418. The lungs are hyperinflated and are clear of infiltrates.Subsegmental atelectasis is present in the left base. Cardiac size is withinnormal limits. There are no ac augie bony abnormalities.Impression: Hyperinflation with limited left basilar atel ectasis.This final report was electronically signed by Dr Lucinda Baker MD 03/283:26 PMDictated By: LUCINDA BAKERDate: 2018 15:26 Vital Signs Vitals Value Date Body Temperature 98 F 2018 Pulse Rate 92 (beats)/min 2018 Respiratory Rate 16 (breaths)/min 2018 O2% BldC Oximetry 100 % 2018 BP Systolic 148 mmHg 2018 BP Diastolic 82 mmHg 2018 Height 62 in 2018 Weight Measured 116.18 lbs 2018 BSA (Body Surface Area) 1.47142 m2 2018 BMI (Body Mass Index) 21.3 kg/m2 2018 Advance Directives PT HAS NEITHER Directive Type Effective Date Sample Card Maker Notes Supporting Document Name Address Phone No Directive Type specified 06/03/2012 21:27 Not Specified Not Specified Not Specified None No Patient does NOT have Living Will Directive Type Effective Date Sample Card Maker Notes Supporting Document Name Address Phone No Directive Type specified 08/27/2014 08:12 Not Specified Not Specified Not Specified None No No Directive Type specified 08/27/2014 08:12 Not Specified Not Specified Not Specified None No Patient HAS Living Will Directive Type Effective Date Sample Card Maker Notes Supporting Document Name Address Phone No Directive Type specified 12/29/2017 09:53 Not Specified Not Specified Not Specified None No Family History * No Data Reported Plan of Care * No data in the system Procedures Code Code System Procedure Name Target Site Date of Procedure XR CHEST AP/PA 1 VIEW 2018 15:33 Encounters Date Code Diagnosis Status (ICD10) - R531 WEAKNESS Active Immunizations * No data in the system Functional Status * No data in the system Hospital Discharge Instructions * Discharge Instructions 2* No Data* Pt stable at condition and ambulated out of ED. * Discharge Diagnosis* Weakness * Important Information* Consult your physician or return to the Emergency Department immediately if worse, if not better as expected, or if any problems arise. * Please understand that you have received care [...] * Follow-Up With:* Primary Care Physician * Prescriptions Given Via:* Printed and given to patient/caregiver. * Patient Teaching* Patient education provided
[2018-07-30] MEDS: METOPROLOL TARTRATE INJ 1 MG/ML VIAL IV PRN (20:03)
[2018-07-30] MEDS ORDERED: SODIUM CHLORIDE 0.9% 250ML 250 ML IV ONE (21:15)
[2018-07-30 21:23] VITALS: BP 170/86
[2018-07-30] MEDS: CEFEPIME 1GM/NS 0.9% 50 ML 50 ML IV SCH (21:23)
[2018-07-30] MEDS: HYDRALAZINE HCL 20 MG/ML VIAL IV PRN (21:31)
[2018-07-30 23:59] VITALS: BP 176/78
[2018-07-31] VITALS (18 sets, daily range): BP systolic 151–184; BP diastolic 71–92
[2018-07-31 02:17] LABS: CREATINE KINASE MB 3.3 ng/mL (0-5.0)
[2018-07-31] MEDS: HYDRALAZINE HCL 20 MG/ML VIAL IV PRN ×3 (06:03→20:42)
[2018-07-31] MEDS: METOPROLOL TARTRATE INJ 1 MG/ML VIAL IV PRN ×2 (08:40→17:08)
--- NOTE | 2018-07-31 09:15 | NUR ---
Notified Dr. Phelan of patients possible sepsis, Dr. López in ICU evaluating pt. Dr. López recommended against sepsis IV fluid infusion d/t present JVD. Dr. Phelan agreed w/Dr. López. No new orders rec'd at this time. will continue to monitor
[2018-07-31 09:26] LABS: HEMATOCRIT 30.6 % (34.2-44.1); HEMOGLOBIN 9.8 g/dL (12.0-16.0); LYMPHOCYTES # (AUTO) 0.4 (1.0-3.2); LYMPHOCYTES % 6.5 % (18.0-39.1); MEAN CORPUSCULAR HEMOGLOBIN 26.5 pg (28-32); MEAN CORPUSCULAR VOLUME 82.7 fL (81-99); MONOCYTES # (AUTO) 0.6 (0.2-0.8); MONOCYTES % 9.4 % (4.4-11.3); NEUTROPHILS # (AUTO) 5.1 (2.1-6.9); NEUTROPHILS % 82.8 % (38.7-80.0); PLATELET COUNT 353 x10e3/uL (140-360); RED CELL DISTRIBUTION WIDTH 15.3 % (11.7-14.4)
[2018-07-31] MEDS ORDERED: METOPROLOL TARTRATE INJ 1 MG/ML VIAL IV SCH (09:30)
[2018-07-31 09:43] LABS: ANION GAP 23.1 mmol/L (8-16); BLOOD UREA NITROGEN 17 mg/dL (7-26); BUN/CREATININE RATIO 22 (6-25); CALCIUM 10.6 mg/dL (8.4-10.2); CARBON DIOXIDE 26 mmol/L (22-29); CHLORIDE 92 mmol/L (98-107); CREATININE, SERUM 0.78 mg/dL (0.57-1.11); EST GLOMERULAR FILTRATION RATE > 60 ML/MIN (60-); GLUCOSE 162 mg/dL (74-118); POTASSIUM 3.1 mmol/L (3.5-5.1); SODIUM 138 mmol/L (136-145)
[2018-07-31 09:51] LABS: CREATINE KINASE MB 3.9 ng/mL (0-5.0)
[2018-07-31] MEDS ORDERED: ASPIRIN 81 MG CHEW TAB PO SCH (10:00)
[2018-07-31] MEDS ORDERED: ONDANSETRON HCL INJ 2MG/ML 2ML 2 MG/ML VIAL IV PRN (12:00)
--- NOTE | 2018-07-31 12:11 | Consultation ---
DATE OF CONSULTATION: Cardiology Consultation CONSULTING PHYSICIAN: Kings Jennings MD, Interventional Cardiology. REASON FOR CONSULTATION: Abnormal cardiac biomarkers. HISTORY OF PRESENT ILLNESS: Ms. Palacios is a pleasant 73-year-old woman presenting to [facility] with acute worsening shortness of breath over the last couple of days. She has had decreased mentation notable by family. [facility] She was found to have abnormal chest x-ray findings with diffuse infiltrates throughout and cardiomegaly. Her BNP is elevated. Her troponin is mildly abnormal. She was initiated on treatment with IV antibiotics for possible pneumonia coverage with cefepime and vancomycin. She also initially received some IV fluids. There was some concern about possible decompensated heart failure for which patient received furosemide afterwards in the ED. Overnight, she remained tachycardic and was given additional saline with some improvement in her hemodynamics. Per family member, she is doing better today. Her T-max has been 99.1 documented in the hospital. There are no complaints of chest discomfort or shortness of breath at this point. Given patient's mental status, however, she does not seem to be very responsive verbally or engaging with gaze to questioning. REVIEW OF SYSTEMS: A 12-system review is unable to assess. ALLERGIES: NO KNOWN DRUG ALLERGIES. PAST MEDICAL HISTORY: As per HPI limited in part by patient's current mental status issues, hypertension, history of anemia and history of UTIs per report. SOCIAL HISTORY: Unable to assess per report. No smoking or alcohol use. FAMILY HISTORY: Noncontributory. PHYSICAL EXAMINATION: VITAL SIGNS: Temperature is 98.7, heart rate 122, respiratory rate 18, blood pressure 182/99, O2 saturation 94% on nasal cannula 2 L/minute. GENERAL: In no acute distress, confused, disoriented, however, awake. HEENT: Pupils reactive to light. NECK: JVD noted to lower 3rd of the neck with 30 degree head of bed elevation. CHEST: Has decreased breath sounds in bilateral bases. CARDIOVASCULAR: Regular rate and rhythm. Normal S1, S2. No S3 or S4. No murmurs or rubs. ABDOMEN: Soft and nontender. EXTREMITIES: No edema. Warm distal extremities CARDIOVASCULAR MEDICATIONS: Reviewed. Metoprolol tartrate 10 mg q.6 hours p.r.n. elevated blood pressure and hydralazine 10 mg q.4 hours IV p.r.n. elevated blood pressure, status post 40 mg IV Lasix yesterday evening and receiving cefepime and vancomycin antibiotics. LABORATORY DATA: Studies reviewed. White blood cells 8.5, hemoglobin 10.8, platelets 376. INR 0.9. Lactic acid elevated at 26.2. Her troponin 1.136 at peak up from 0.746. BNP is 1253. Sodium 134, potassium 3.6, chloride 91, bicarbonate 28, BUN 16, creatinine 0.86, glucose 246, AST 22, ALT 15, total bilirubin 0.5, magnesium 1.6, and total protein 6.8, albumin 2.8. TSH 0.65. Urine culture is pending. Blood cultures are pending. Chest x-ray, diffuse bilateral increased interstitial and airspace opacities. Cardiac silhouette and central pulmonary vasculature appeared mildly enlarged. CT head mild central volume loss, moderate supratentorial white matter small-vessel ischemic changes. ASSESSMENT: 1. A 73-year-old woman presenting with lactic acidosis. 2. Altered mental status. 3. Pulmonary infiltrates concerning for pneumonia versus pulmonary edema. 4. Sinus tachycardia. 5. Hypertension, uncontrolled. 6. Type 2 PA versus non-ST elevation myocardial infarction. RECOMMENDATIONS: 1. Aspirin 81 mg daily. 2. Scheduled beta jose. 3. I agree with antibiotics per family member, doing better today. Continue current course. 4. Does not seem overly volume overloaded. Hold off on diuretics at this point, given the concern for underlying sepsis. 5. We will follow closely. We will obtain echocardiogram. Thank you for the opportunity to participate in the care of this lady, Ms. Palacios. Please feel free to call with any questions on [phone]. MD GABRIEL Cruz/JENNIFER /[id number]
--- NOTE | 2018-07-31 13:26 | NUR ---
COMMUNITY HEALTH CONSULTANT TO BEDSIDE TO DISCUSS PLAN OF CARE WITH FAMILY. CM ROLE AND CARE TRANSITIONS DISCUSSED. ANTICIPATED DISCHARGE PLAN DISCUSSED ALONG WITH DURATION OF CARE. CM DISCUSSED PT'S RIGHT TO MAKE DECISIONS IN CARE. CM WORK HOURS GIVEN ALONG WITH [place] [employer] [facility] PT LIVES ALONE IN [facility] BUT HAS RECENTLY BEEN IN SNF AT [facility] S/P KYPHOPLASTY ADMIT FROM ER HOSPITAL/ER VISITS SINCE LAST ADMIT: 0 EMERGENCY CONTACT: KOFI WOODWARD [phone] [facility]: NONE PCP DR HALL AT [facility] CURRENT DME: NONE EMPLOYMENT STATUS: RETIRED AREAS OF CONCERN: CM MET WITH SON MCKENZIE WOODWARD AT BEDSIDE TO GET DC INFORMATION; PT IS VERY CONFUSED; PLAN IS TO RETURN TO [facility] FOR IV ABX AND P.T. PT WAS RECENTLY TRANSITIONED FROM [facility] 2 WEEKS AGO TO [facility] (FOR FAMILY CONVENIENCE) FAMILY IS CONCERNED ABOUT FREQUENT, RE-OCCURING UTI'S CONFIRMED WITH PT'S SON AND DR DAO THAT PT WILL BE GOING BACK TO [facility] UPON DISCHARGE
[2018-07-31] MEDS: METOPROLOL TARTRATE INJ 1 MG/ML VIAL IV SCH ×2 (14:45→21:57)
[2018-07-31] MEDS ORDERED: POTASSIUM CHLORIDE 20MEQ/100ML 200 ML IV ONE (17:00)
--- NOTE | 2018-07-31 17:17 | History and Physical ---
CHIEF COMPLAINT: Decreased mental status and elevated blood pressure. 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 The patient was having decreased responsiveness and change in mental status. She was sent to the hospital. The patient was diagnosed with a non-Q-wave MN with a troponin I of 0.746, BNP 1253, and bilateral pneumonia, so the patient was admitted for management, seen by preconstruction manager. The patient also was given a fluid bolus for sepsis. She is more awake today. PAST MEDICAL HISTORY: Hypertension; recently diagnosed possible myasthenia, not had a workup yet; hyperlipidemia; and chronic back pain. MEDICATIONS: 1. Mestinon 60 mg three times a day. 2. Lisinopril 20 mg daily. 3. Cyproheptadine. 4. Metoprolol 50 mg q.12. 5. Simvastatin 20 mg daily. 6. Cilostazol. 7. Tizanidine 2 mg every eight hourly. SOCIAL HISTORY: No history of smoking or alcohol. ALLERGIES: NONE. PHYSICAL EXAMINATION: VITAL SIGNS: Blood pressure , pulse 110. HEENT: Normal. NECK: No JVD. LUNGS: Air entry diminished. Few crackles in the bases. ABDOMEN: Soft. Bowel sounds normal. LOWER EXTREMITIES: No edema. ASSESSMENT: Sepsis, pneumonia, urinary tract infection, and non-ST elevated myocardial infarction. PLAN: We will continue current treatment, IV fluids, IV antibiotic, and aspirin. Cardiology consult. MD ISELA Luna/OYL /[phone]
[2018-07-31] MEDS ORDERED: DIATRIZOATE MEGL/DIATRIZOA SOD 30 ML BTL PO ONE (17:33)
[2018-07-31] MEDS ORDERED: SODIUM CHLORIDE 0.9% 50ML 50 ML ONE (18:57)
[2018-07-31] MEDS ORDERED: IOPAMIDOL 370 MG/ML 200 ML INFUS..BTL INJ ONE (18:57)
--- NOTE | 2018-07-31 19:00 | NUR ---
Report received. Assumed care. Assessment done. See interventions. Room air with good sats. K-run infusing at this time.
[2018-07-31] MEDS: VANCOMYCIN 1GM/NS 250 ML 250 ML IV SCH (19:07)
[2018-07-31] MEDS: CEFEPIME 1GM/NS 0.9% 50 ML 50 ML IV SCH (19:07)
--- NOTE | 2018-07-31 19:19 | Diagnostic Imaging Report ---
EXAM: CT Pelvis WITH contrast INDICATION: ^pelvic abscess ^[id number] ^[id number] COMPARISON: None. TECHNIQUE: Pelvis were scanned utilizing a multidetector helical scanner from the iliac crest to the pubic symphysis after administration of IV contrast. Coronal and sagittal reformations were obtained. Routine protocol was performed. Scan was performed when during portal venous phase. IV CONTRAST: 100 mL of Isovue-370 Rectal CONTRAST: Diluted Gastroview COMPLICATIONS: None RADIATION DOSE: Total DLP: 202.11 mGy*cm Estimated effective dose: (DLP x 0.015 x size factor) mSv CTDIvol has been reviewed. It is below the limits set by the Radiation Protocol Committee (RPC). FINDINGS: LINES and TUBES: Mcgraw catheter and rectal tube in place. GI TRACT: Visualized bowel loops are unremarkable. No evidence of bowel obstruction. Rectum is distended with gas and contrast. No evidence of rectal contrast extravasation. PELVIC ORGANS/BLADDER: Bladder is decompressed by a Mcgraw catheter in place, demonstrating wall thickening and a pocket of air There is a hyperdense ring within the uterus. There is an approximately 6.2 x 2.5 cm thickening along the left pelvic wall (series 2, image 26). LYMPH NODES: Prominent mesenteric lymph nodes are seen (series 2, images 17, 18, and 20). 2.2 x 3.1 cm left external iliac lymph node there are additional left iliac chain lymph nodes VESSELS: Severe aortoiliac atherosclerotic disease. PERITONEUM / RETROPERITONEUM: No free air. Trace pelvic free fluid. BONES: Grade 1 retrolisthesis of L5 in relation to L4. SOFT TISSUES: Mild subcutaneous edema. IMPRESSION: 1. No definite evidence of rectovaginal fistula. No evidence of rectal contrast extravasation. 2. Left iliac chain lymphadenopathy. 3. No evidence of pelvic abscess. Left pelvic soft tissue thickening is probably conglomerate of lymph nodes. Signed by: Dr. Vinny Gerber MD on 07/31/2018 7:16 PM
[2018-07-31] MEDS: ATORVASTATIN 10 MG TAB PO SCH (21:00)
[2018-08-01] VITALS (25 sets, daily range): BP systolic 126–185; BP diastolic 53–112
--- NOTE | 2018-08-01 00:34 | NUR ---
O2 sat 88%. Placed 2L NC on.
[2018-08-01] MEDS: HYDRALAZINE HCL 20 MG/ML VIAL IV PRN ×2 (00:50→08:25)
[2018-08-01] MEDS: METOPROLOL TARTRATE INJ 1 MG/ML VIAL IV PRN (01:35)
[2018-08-01] MEDS: METOPROLOL TARTRATE INJ 1 MG/ML VIAL IV SCH ×3 (05:49→17:54)
[2018-08-01] MEDS ORDERED: ATORVASTATIN 20 MG TAB PO SCH (09:00)
[2018-08-01] MEDS: ASPIRIN 300 MG SUPP PR SCH (09:08)
[2018-08-01] MEDS: FUROSEMIDE INJ 10 MG/ML 4 ML VIAL IV SCH ×2 (10:15→21:46)
[2018-08-01 10:34] LABS: BASOPHILS % 0.1 % (0.0-1.0); HEMATOCRIT 28.6 % (34.2-44.1); HEMOGLOBIN 9.3 g/dL (12.0-16.0); LYMPHOCYTES # (AUTO) 0.6 (1.0-3.2); LYMPHOCYTES % 7.6 % (18.0-39.1); MEAN CORPUSCULAR HEMOGLOBIN 26.6 pg (28-32); MEAN CORPUSCULAR HGB CONC 32.5 g/dL (31-35); MEAN CORPUSCULAR VOLUME 81.9 fL (81-99); MONOCYTES # (AUTO) 0.7 (0.2-0.8); MONOCYTES % 9.9 % (4.4-11.3); NEUTROPHILS # (AUTO) 5.9 (2.1-6.9); PLATELET COUNT 306 x10e3/uL (140-360); RED BLOOD COUNT 3.49 x10e6/uL (3.6-5.1)
[2018-08-01 10:54] LABS: ANION GAP 18.1 mmol/L (8-16); BLOOD UREA NITROGEN 29 mg/dL (7-26); BUN/CREATININE RATIO 37 (6-25); CALCIUM 10.3 mg/dL (8.4-10.2); CARBON DIOXIDE 27 mmol/L (22-29); CHLORIDE 98 mmol/L (98-107); CREATININE, SERUM 0.78 mg/dL (0.57-1.11); EST GLOMERULAR FILTRATION RATE > 60 ML/MIN (60-); GLUCOSE 149 mg/dL (74-118); MAGNESIUM 1.8 MG/DL (1.3-2.1); PHOSPHORUS 2.7 MG/DL (2.3-4.7); POTASSIUM 3.1 mmol/L (3.5-5.1); SODIUM 140 mmol/L (136-145)
[2018-08-01 13:08] LABS: ANISOCYTOSIS SLIGHT; LYMPHOCYTES % (MANUAL) 17 % (19-48); MONOCYTES % (MANUAL) 5 % (3.4-9.0); MYELOCYTES % (MANUAL) 2 % (0-0); NEUTROPHILS % (MANUAL) 76 % (40-74); PLATELET ESTIMATE ADEQUATE; PLATELET MORPHOLOGY COMMENT NORMAL; RBC MORPHOLOGY COMMENT NORMAL
--- NOTE | 2018-08-01 14:48 | Diagnostic Imaging Report ---
EXAM: Right upper quadrant abdominal ultrasound INDICATION: Sepsis. COMPARISON: None. TECHNIQUE: Transverse and longitudinal images of the right upper quadrant abdomen were obtained FINDINGS: Liver: Size: Measures 15.1 cm in the right midclavicular line, normal Appearance: Normal echogenicity, smooth contour Mass: No focal masses Gallbladder: No distention, pericholecystic fluid, wall thickening, stone, or reported sonographic Hogan's sign. Gallbladder wall measures 0.3 cm. Minimal gallbladder sludge. There is a 4 mm nonmobile echogenic focus at the gallbladder wall without evidence of Doppler flow. Bile Ducts: Intrahepatic Ducts: No dilatation Extrahepatic Ducts: Common bile duct measures 0.3 cm, no dilatation Pancreas: Visualized portions of the pancreatic head, neck and proximal body are normal. Kidney: The right kidney measures 10.4 cm without evidence of hydronephrosis or stone. There is an 8 mm simple appearing right mid pole cyst. Vessels: Aorta: Visualized portions are normal Inferior Vena Cava: Visualized portions are normal Main Portal Vein: 1.2 cm, normal size with hepatopetal flow. Free Fluid: Trace free fluid in the right upper quadrant. IMPRESSION: Gallbladder sludge without sonographic evidence of cholecystitis. A 4 mm echogenic focus in the gallbladder that is nonmobile and demonstrates no Doppler flow. The differential includes gallbladder polyp versus gallstone. Recommend follow-up ultrasound in 6 months to assess for stability. Trace right upper quadrant ascites. Signed by: Dr. Eveline Vera MD on 08/01/2018 2:44 PM
[2018-08-01] MEDS ORDERED: POTASSIUM CHLORIDE 20MEQ/100ML 200 ML IV ONE (16:00)
[2018-08-01] MEDS ORDERED: POTASSIUM CHLORIDE 20 MEQ TAB CR PO NR (16:30)
[2018-08-01] MEDS: METRONIDAZOLE 500MG/NS 100ML 100 ML IV SCH ×2 (17:40→22:03)
[2018-08-01] MEDS: VANCOMYCIN 1GM/NS 250 ML 250 ML IV SCH (17:54)
--- NOTE | 2018-08-01 18:12 | Consultation ---
DATE OF CONSULTATION: Thank you very much for asking me to see this 73-year-old. It was difficult to take history from her, but I managed to interview her daughter, so what I got is that she is a 73-year-old, who has been in intermediate for longtime and she was brought to the hospital due to decreased alertness and lethargy. She also had pelvic organ prolapse for which pessary was used in [place], where she used to live. PAST MEDICAL HISTORY: Significant for hypertension, recently diagnosed with possible myasthenia, hyperlipidemia, and chronic back pain. MEDICATIONS: See the list. SOCIAL HISTORY: No history of smoking or alcohol. ALLERGIES: NONE. REVIEW OF SYSTEMS: She denies any cardiovascular, respiratory, gastrointestinal problems, urinary, musculoskeletal, psychiatric, or dermatological problems. PHYSICAL EXAMINATION: VITAL SIGNS: Stable. CHEST: Clear to auscultation. CARDIOVASCULAR: Regular rate. ABDOMEN: Soft, nontender. GENITOURINARY: Vaginal exam showed ring pessary that was removed and showed excess dark vaginal discharge that is possible for anaerobic bacteria. She was also suspected for rectovaginal fistula. CT scan with contrast ruled this out, so at this stage, douching of the vagina with saline and starting her on metronidazole would be my suggestion if further evidence of stool protruding from the vagina, then at that stage, barium enema would be the best way to illustrate rectovaginal fistula. Once again, thank you very much for asking me to see this patient. Please do not hesitate to call me if I can be of any help in the future. Once her vaginal infection settle down, please call me so I can come back and place her pessary inside the vagina. Janina Reyes MD DD/JENNIFER /[id number] cc: Shantell Carney MD
--- NOTE | 2018-08-01 19:22 | Progress Note ---
DATE: 08/01/2018 Cardiology Progress Note SUBJECTIVE: Denies any chest pain or shortness of breath, however, is confused. OBJECTIVE: VITAL SIGNS: Temperature 98.6, heart rate 102 to 112 on telemetry in sinus tachycardia, blood pressure 143/92, respiratory rate is 25, O2 saturation 97% on nasal cannula. BMI is 18.3. GENERAL: Seems to be in no acute distress, pleasantly confused. Seems to have gait preference to the left side. HEENT: 3 mm pupils, reactive to light. NECK: With JVD elevated to angle of jaw at 30 degree head of bed elevation. No carotid bruits. CHEST: With decreased breath sounds in bilateral bases and scattered rales. CARDIOVASCULAR: Regular rate and rhythm. Normal S1, S2. Systolic ejection murmur 04/02. ABDOMEN: Soft, nontender. EXTREMITIES: Trace edema of bilateral lower extremities. CARDIOVASCULAR MEDICATIONS: Aspirin 300 mg per rectum. Atorvastatin 10 mg at bedtime, currently not being given as the patient is not tolerating p.o. well. Metoprolol tartrate 10 mg every 8 hours scheduled and additional 10 mg q.6 hours p.r.n., will be adjusted to metoprolol 7.5 mg every 6 hours scheduled and additional p.r.n. as needed with holding parameter systolic blood pressure less than 120 and heart rate less than 50. STUDIES: Reviewed. Sodium 138, potassium 3.1, chloride 92, bicarbonate 26, BUN 17, creatinine 0.78, glucose 102. White blood cell 6.1, hemoglobin 9.8, platelets 353. PT 13.3, PTT 35.6, INR 0.96. AST 22, ALT 15, total bilirubin 0.5, alkaline phosphatase 108. ASSESSMENT: A 73-year-old woman presenting with, 1. Altered mental status. Differential includes delirium versus cerebrovascular accident versus encephalopathy. 2. Acute on chronic severe systolic heart failure with left ventricular ejection fraction of 35% to 40% on echocardiogram done in-house. 3. Pneumonia. 4. Hypertension, uncontrolled. RECOMMENDATIONS: 1. On exam today, seems more volume overloaded. I have initiated Lasix 20 mg IV b.i.d., first dose now. 2. Remains with uncontrolled hypertension with systolic blood pressure ranging in the 140s to 170s. We will up titrate scheduled metoprolol to 7.5 mg every 6 hours with holding parameters and additional p.r.n. metoprolol as needed and assess response. 3. Antibiotics per primary service. 4. At later date, if the patient is tolerating p.o. route, mental status improved, and conditioning/functional status and goals are in agreement with the following, we will consider coronary invasive evaluation then for further stratification of new diagnosis systolic heart failure. For now, continue aspirin and care. MD TaylorV/MODL /[id number]
[2018-08-01] MEDS: ATORVASTATIN 10 MG TAB PO SCH (21:00)
--- NOTE | 2018-08-01 21:08 | Consultation ---
DATE OF CONSULTATION: 08/01/2018 REASON FOR CONSULTATION: Sepsis. Thank you, Dr. Carney for asking me to see this patient. HISTORY OF PRESENT ILLNESS: The patient is a 73-year-old woman who was admitted through the emergency department and referred for sepsis. She is unable to give a history due to altered mental status. Therefore, information was obtained from the daughter and supplemented by chart review. She was sent to the emergency department from a custodial on 07/30/2018 with altered mental status. The patient had complained that something was not quite well in the abdomen daily according to the daughter. Prior to transfer, the custodial staff noted high blood pressure and low oxygen saturation and started supplemental oxygen. In the emergency department, the patient was noted to have temperature of 99.1 degrees Fahrenheit, pulse rate 113, respiratory rate 36, blood pressure 198/99, and oxygen saturation 94% on room air. Initial laboratory studies showed blood leukocyte count of 8530 with 90.9% neutrophils, BUN 16, creatinine 0.86, blood glucose 246. Troponin 0.746 and abnormal urinalysis. Chest x-ray showed diffuse bilateral increased interstitial and airspace opacities. Brain CT scan showed no acute finding. The patient had dislodged pessaries which has been evaluated by the Gynecology Service. PAST MEDICAL HISTORY: Hypertension, hyperlipidemia, chronic pain and recurrent eye droop, being evaluated for myasthenia gravis. PAST SURGICAL HISTORY: Vertebroplasty twice, hysterectomy and prolapsed bladder. ALLERGIES: NO KNOWN DRUG ALLERGIES. MEDICATIONS: The current antibiotics, cefepime 1 g IV piggyback q.24 hours and vancomycin 1 g IV piggyback q. 24 hours. IMMUNIZATIONS: She received pneumococcal vaccination in March 2018. FAMILY HISTORY: Noncontributory. SOCIAL HISTORY: She is a custodial resident. She quit smoking cigarettes in March 2018. She used to smoke one pack a day for several decades. REVIEW OF SYSTEMS: Unable to obtain. PHYSICAL EXAMINATION: GENERAL: Acutely ill. VITAL SIGNS: T-max 100.9, pulse rate 110, respiratory rate 28, blood pressure 150/76, weight 94 pounds. HEENT: Atraumatic. There is no icterus or injection of conjunctivae. There is no ear or nasal discharge. Uncooperative with pharyngeal examination. NECK: Supple. No meningismus. LUNGS: Decreased breath sounds bilaterally. HEART: Normal S1 and S2. ABDOMEN: Soft with right upper quadrant tenderness. EXTREMITIES: There is no edema, clubbing, or cyanosis. SKIN: Warm with flushing. No acute erythema. [employer]: Confused. LABORATORY AND DIAGNOSTICS: WBC 7260, hemoglobin 9.3, platelets 306,000, neutrophils 81, lymphocytes 7.6, monocytes 9.9, eosinophils 0 and basophils 0.1. BUN 29, creatinine 0.78, blood glucose 149. Blood culture no growth. Urine culture also no growth. CT scan showed no evidence of rectovaginal fistula. IMPRESSION: 1. Sepsis present on admission. 2. Pneumonia present on admission. 3. NSTEMI. 4. Right upper quadrant pain. PLAN: 1. We will obtain ultrasound of the gallbladder. 2. Increased cefepime to 1 g IV piggyback q. 12 hours and start Flagyl 500 mg IV piggyback q.8 hours. 3. Cardiology and Gynecology inputs have been noted. MD DARVIN Anna/JENNIFER /[id number]
[2018-08-01] MEDS: CEFEPIME 1GM/NS 0.9% 50 ML 50 ML IV SCH (21:46)
[2018-08-02] VITALS (35 sets, daily range): BP systolic 133–179; BP diastolic 53–125
--- NOTE | 2018-08-02 00:09 | NUR ---
Vaginal irrigation done. Complete bed bath given. Bed linens changed.
[2018-08-02] MEDS: METOPROLOL TARTRATE INJ 1 MG/ML VIAL IV SCH ×4 (00:20→18:07)
[2018-08-02 05:15] LABS: EOSINOPHILS % 0.2 % (0.0-6.0); HEMATOCRIT 29.7 % (34.2-44.1); HEMOGLOBIN 9.3 g/dL (12.0-16.0); LYMPHOCYTES # (AUTO) 0.7 (1.0-3.2); LYMPHOCYTES % 12.8 % (18.0-39.1); MEAN CORPUSCULAR HEMOGLOBIN 26.1 pg (28-32); MEAN CORPUSCULAR HGB CONC 31.3 g/dL (31-35); MEAN CORPUSCULAR VOLUME 83.2 fL (81-99); MONOCYTES # (AUTO) 0.6 (0.2-0.8); MONOCYTES % 11.1 % (4.4-11.3); NEUTROPHILS % 75.1 % (38.7-80.0); PLATELET COUNT 288 x10e3/uL (140-360); RED BLOOD COUNT 3.57 x10e6/uL (3.6-5.1); RED CELL DISTRIBUTION WIDTH 15.9 % (11.7-14.4)
[2018-08-02 05:23] LABS: ANION GAP 17.3 mmol/L (8-16); BLOOD UREA NITROGEN 32 mg/dL (7-26); BUN/CREATININE RATIO 42 (6-25); CARBON DIOXIDE 30 mmol/L (22-29); CHLORIDE 102 mmol/L (98-107); CREATININE, SERUM 0.76 mg/dL (0.57-1.11); EST GLOMERULAR FILTRATION RATE > 60 ML/MIN (60-); GLUCOSE 112 mg/dL (74-118); POTASSIUM 3.3 mmol/L (3.5-5.1); SODIUM 146 mmol/L (136-145)
[2018-08-02] MEDS: METRONIDAZOLE 500MG/NS 100ML 100 ML IV SCH ×3 (05:44→22:47)
[2018-08-02] MEDS: CEFEPIME 1GM/NS 0.9% 50 ML 50 ML IV SCH ×2 (08:43→20:36)
[2018-08-02] MEDS: ASPIRIN 300 MG SUPP PR SCH (08:43)
[2018-08-02] MEDS: FUROSEMIDE INJ 10 MG/ML 4 ML VIAL IV SCH ×2 (08:43→20:36)
[2018-08-02] MEDS: HYDRALAZINE HCL 20 MG/ML VIAL IV PRN (14:45)
--- NOTE | 2018-08-02 14:58 | NUR ---
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 HOB < 30 Degrees Patient Position: Left PATIENT VISIT / SKIN CHECK: No Pressure Ulcers Identified RECOMMENDATION: - Continue Strict PUP - Pillow Wedge between Knees & Ankles. Addendum: 08/02/18 at 1459 by Brandon Stout RN Amended: Links added.
[2018-08-02] MEDS ORDERED: METOPROLOL TARTRATE INJ 1 MG/ML VIAL IV PRN (15:45)
[2018-08-02] MEDS: VANCOMYCIN 1GM/NS 250 ML 250 ML IV SCH (18:07)
--- NOTE | 2018-08-02 18:07 | NUR ---
TRANSPORTED PATIENT TO [facility] FOR HIDA SCAN. TOLERATED FAIR. BP ELEVATED.
--- NOTE | 2018-08-02 20:31 | Diagnostic Imaging Report ---
Hepatobiliary Scan with Gallbladder Ejection Fraction Clinical information: Sepsis Technique: Following intravenous administration of 6.5 millicuries of Tc-99m mebrofenin, dynamic images of the abdomen in the anterior projection were obtained through 24 minutes. Sincalide (CCK analog) 0.9 micrograms was administered intravenously over 30 minutes with additional imaging for determination of gallbladder ejection fraction. Discussion: Perfusion of the liver is normal. Extraction of tracer by the liver parenchyma is normal. Tracer appears promptly within the biliary tract. The gallbladder begins to fill by 10 minutes post injection of tracer and fills adequately. Tracer is seen in the small bowel during the sincalide infusion. The gallbladder ejection fraction with sincalide is 8% (normal greater than 40%). Impression: 1. Filling of the gallbladder excludes acute cystic duct obstruction/acute cholecystitis. 2. The decreased gallbladder ejection fraction of 8% supports the clinical diagnosis of chronic cholecystitis/gallbladder dyskinesia. Signed by: Dr. Kamryn Escudero M.D. on 08/02/2018 8:28 PM
[2018-08-02] MEDS ORDERED: SODIUM CHLORIDE 0.9% 1000ML 1,000 ML ONE (20:45)
[2018-08-02] MEDS: ATORVASTATIN 10 MG TAB PO SCH (21:00)
--- NOTE | 2018-08-02 22:13 | Progress Note ---
DATE: 08/02/2018 Cardiology Progress Note SUBJECTIVE: More awake today and responsive, however, remains confused. No chest pain or shortness of breath reported. OBJECTIVE: VITAL SIGNS: Temperature 97.6, heart rate 93, blood pressure 159/98, respiratory rate 21, and O2 saturation 96% on nasal cannula. BMI is 18.3. GENERAL: In no acute distress, remains confused. NECK: JVD is in throat, now to lower 3rd of neck. CHEST: With scattered rales in bilateral bases. CARDIOVASCULAR: Regular rate and rhythm. Normal S1, S2. No S3 or S4. ABDOMEN: Soft, nontender. EXTREMITIES: No edema. SKIN: Dry and intact. NEURO: Pupils 3-4 mm, reactive to light. Symmetrical, has persistent altered mental status and slurred speech. PSYCH: Blank affect CARDIOVASCULAR MEDICATIONS: Reviewed. Metoprolol tartrate 7.5 mg every 6 hours, will be increased to 10 mg every 6 hours schedule, in addition p.r.n. metoprolol 7.5 mg q.6 hours is scheduled, furosemide 40 mg IV every 12 hours, atorvastatin 10 mg at bedtime, vancomycin, cefepime antibiotics as well as metronidazole antibiotics. STUDIES: Sodium 146, potassium is 3.3, chloride 102, bicarbonate 30, BUN 32, creatinine 0.76, glucose 112. White blood cells 5.3, hemoglobin 9.3, platelets 288. INR 0.96, PT 13.3, PTT 35.6, AST 22, ALT 15, total bilirubin 0.5, alkaline phosphatase 108. ASSESSMENT: 1. Acute on chronic severe systolic heart failure. 2. Encephalopathy versus cerebrovascular accident. 3. Pneumonia. RECOMMENDATIONS: 1. Still remains at risk for aspiration and n.p.o. Continue with IV metoprolol, however, increase 10 mg every 6 hours scheduled to optimize blood pressure control. 2. Volume status is improving. Continue current diuretic dosing and replete electrolytes. 3. Await further workup and resolution of mental status issues. Consider at a later date if tolerating p.o. and mental status improved coronary risk stratification given new onset acute heart failure. 4. Antibiotics per primary service. Kings Jennings MD AFV/MODL /[id number]
[2018-08-03] VITALS (26 sets, daily range): BP systolic 104–147; BP diastolic 56–103
[2018-08-03] MEDS: METOPROLOL TARTRATE INJ 1 MG/ML VIAL IV SCH ×4 (00:59→17:01)
[2018-08-03] MEDS: HYDRALAZINE HCL 20 MG/ML VIAL IV PRN (04:57)
[2018-08-03] MEDS: METRONIDAZOLE 500MG/NS 100ML 100 ML IV SCH ×3 (05:02→23:02)
[2018-08-03 06:03] LABS: RED CELL DISTRIBUTION WIDTH 15.9 % (11.7-14.4)
[2018-08-03] MEDS ORDERED: AMIODARONE HCL 150MG 100 ML IV ONE (06:15)
[2018-08-03 06:52] LABS: BASOPHILS % 0.3 % (0.0-1.0); EOSINOPHILS % 0.6 % (0.0-6.0); HEMATOCRIT 40.2 % (34.2-44.1); HEMOGLOBIN 12.9 g/dL (12.0-16.0); LYMPHOCYTES # (AUTO) 1.6 (1.0-3.2); LYMPHOCYTES % 23.9 % (18.0-39.1); MEAN CORPUSCULAR HEMOGLOBIN 26.6 pg (28-32); MEAN CORPUSCULAR HGB CONC 32.1 g/dL (31-35); MEAN CORPUSCULAR VOLUME 82.9 fL (81-99); MONOCYTES # (AUTO) 0.7 (0.2-0.8); MONOCYTES % 10.4 % (4.4-11.3); NEUTROPHILS # (AUTO) 4.2 (2.1-6.9); NEUTROPHILS % 63.9 % (38.7-80.0); PLATELET COUNT 411 x10e3/uL (140-360); RED BLOOD COUNT 4.85 x10e6/uL (3.6-5.1)
[2018-08-03] MEDS: AMIODARONE HCL 900 MG in DEXTROSE 5 % 500ML BOTTLE 482 ML IV SCH (07:00)
--- NOTE | 2018-08-03 07:24 | NUR ---
08/02/182114. Blood aerobic bottle with gram positive cocci in clusters report given to Rowan DAVIS.
[2018-08-03 07:45] LABS: ANION GAP 22.1 mmol/L (8-16); BLOOD UREA NITROGEN 36 mg/dL (7-26); BUN/CREATININE RATIO 44 (6-25); CALCIUM 10.2 mg/dL (8.4-10.2); CARBON DIOXIDE 30 mmol/L (22-29); CHLORIDE 98 mmol/L (98-107); CREATININE, SERUM 0.82 mg/dL (0.57-1.11); EST GLOMERULAR FILTRATION RATE > 60 ML/MIN (60-); GLUCOSE 101 mg/dL (74-118); POTASSIUM 3.1 mmol/L (3.5-5.1); SODIUM 147 mmol/L (136-145)
--- NOTE | 2018-08-03 07:55 | NUR ---
0730 HEART RHYTHM CONVERTED FROM AFIB TO SR. EKG CONFIRMED.
[2018-08-03] MEDS ORDERED: POTASSIUM CHLORIDE 20MEQ/100ML 200 ML ONE (08:09)
[2018-08-03] MEDS ORDERED: MAGNESIUM SULFATE 2GM/50ML 50 ML IV ONE (08:15)
[2018-08-03] MEDS ORDERED: POTASSIUM CHLORIDE 20MEQ/100ML 200 ML IV ONE ×4 (08:15→21:00)
--- NOTE | 2018-08-03 08:30 | NUR ---
patient sipped on decaf coffee from daughter. no difficulty swallowing and no signs or symptoms of aspiration.
[2018-08-03] MEDS: CEFEPIME 1GM/NS 0.9% 50 ML 50 ML IV SCH ×3 (08:37→20:52)
[2018-08-03] MEDS: FUROSEMIDE INJ 10 MG/ML 4 ML VIAL IV SCH ×3 (08:37→20:49)
[2018-08-03] MEDS: ASPIRIN 300 MG SUPP PR SCH ×2 (08:37→09:57)
[2018-08-03] MEDS: ENOXAPARIN SOD INJ 40 MG/0.4 ML SYR SC SCH ×3 (08:37→21:50)
[2018-08-03] MEDS ORDERED: SODIUM CHLORIDE 0.9% 250ML 250 ML ONE (10:45)
--- NOTE | 2018-08-03 12:00 | NUR ---
AMIODARONE GTT DECREASED FROM 1 MG/MIN TO 0.5 MG/MIN PER PROTOCOL AFTER 6 HRS
--- NOTE | 2018-08-03 13:40 | NUR ---
patient accepted sips of soup from family member when she previously refused to drink anything with RN. patient swallowing without difficulty with no coughing and no signs of of aspiration.
[2018-08-03] MEDS: FAMOTIDINE 20 MG/2 ML VIAL IV SCH (16:20)
--- NOTE | 2018-08-03 16:59 | NUR ---
patient is cooperating with being fed her dinner. she is swallowing and eating without difficulty.
[2018-08-03] MEDS: VANCOMYCIN 1GM/NS 250 ML 250 ML IV SCH (17:01)
--- NOTE | 2018-08-03 17:39 | Progress Note ---
DATE: 08/03/2018 Cardiology Progress Note SUBJECTIVE: Talking today, no complaints. OBJECTIVE: VITAL SIGNS: Temperature 97.1, heart rate 76, respiratory rate 18, blood pressure 139/66, and O2 saturation 98% on room air. GENERAL: In no acute distress. HEENT: Pupils equal and reactive to light. Mucosa moist. NECK: No JVD. CHEST: With decreased breath sounds. Scattered vascular rales. CARDIOVASCULAR: Regular rate and rhythm. Normal S1, S2. Systolic ejection murmur. No S3 or S4. On telemetry, currently sinus rhythm. However, overnight had episode of atrial fibrillation with rapid ventricular response upon previous review. ABDOMEN: Soft and nontender. EXTREMITIES: No edema. Warm distal extremities. SKIN: Dry and intact. NEURO: More arousable today. Nonfocal on gross exam. CARDIOVASCULAR MEDICATIONS: Reviewed: 1. Metoprolol tartrate 10 mg IV q.6 hours. 2. Cefepime antibiotics. 3. Aspirin 300 mg per rectum. 4. Furosemide 40 mg IV every 12 hours. 5. Hydralazine 10 mg q.4 hours p.r.n. 6. Vancomycin IV. 7. Metoprolol tartrate 5 mg q.8 hours p.r.n. 8. Atorvastatin 10 mg at bedtime, on hold given the patient is n.p.o. STUDIES: Reviewed. White blood cells 6.6, hemoglobin 12.9, and platelets 411. Sodium 147, potassium 3.1, replacement being given, chloride 98, bicarbonate 30, BUN 36, creatinine 0.82, glucose 101, calcium 10.2, magnesium 1.7 being replaced. Blood cultures, no preliminary culture in progress, re-intubation required for some growth. ASSESSMENT: 1. Acute on chronic severe systolic heart failure. 2. Encephalopathy. 3. Less likely cerebrovascular accident. 4. Pneumonia. 5. Paroxysmal atrial fibrillation. 6. Abnormal EKG with T-wave inversions and QT prolongation in the setting of status post atrial fibrillation with rapid ventricular response with heart failure, underlying. 7. Hypokalemia and hypomagnesemia. RECOMMENDATIONS: 1. Replete lytes. 2. Continue beta jose. 3. Continue diuretics. Plan tomorrow to transition to lower dose. 4. Consider speech evaluation. If no aspiration risk, consider transition to p.o. route cardiac medication. 5. Continue rest of cardiovascular medications. 6. At this point, too frail and n.p.o. and still recovering from acute illness, not adequate time for coronary angiography; however, this should be at some point reconsidered as her clinical condition allows for further evaluation of new diagnosis, systolic heart failure. MD GABRIEL Cruz/MODL /[id number]
[2018-08-03] MEDS: ATORVASTATIN 10 MG TAB PO SCH (20:56)
[2018-08-04] VITALS (27 sets, daily range): BP systolic 86–154; BP diastolic 38–102
[2018-08-04] MEDS: METOPROLOL TARTRATE INJ 1 MG/ML VIAL IV SCH ×2 (00:04→05:43)
[2018-08-04 05:05] LABS: BASOPHILS % 0.4 % (0.0-1.0); EOSINOPHILS # (AUTO) 0.1 (0.0-0.4); EOSINOPHILS % 2.2 % (0.0-6.0); HEMATOCRIT 32.4 % (34.2-44.1); LYMPHOCYTES # (AUTO) 1.3 (1.0-3.2); LYMPHOCYTES % 23.5 % (18.0-39.1); MEAN CORPUSCULAR HGB CONC 30.9 g/dL (31-35); MEAN CORPUSCULAR VOLUME 84.2 fL (81-99); MONOCYTES # (AUTO) 0.6 (0.2-0.8); NEUTROPHILS # (AUTO) 3.3 (2.1-6.9); NEUTROPHILS % 62.2 % (38.7-80.0); PLATELET COUNT 329 x10e3/uL (140-360); RED BLOOD COUNT 3.85 x10e6/uL (3.6-5.1); RED CELL DISTRIBUTION WIDTH 16.1 % (11.7-14.4)
[2018-08-04 05:19] LABS: BLOOD UREA NITROGEN 36 mg/dL (7-26); BUN/CREATININE RATIO 42 (6-25); CALCIUM 9.5 mg/dL (8.4-10.2); CARBON DIOXIDE 29 mmol/L (22-29); CHLORIDE 104 mmol/L (98-107); CREATININE, SERUM 0.85 mg/dL (0.57-1.11); EST GLOMERULAR FILTRATION RATE > 60 ML/MIN (60-); GLUCOSE 116 mg/dL (74-118); SODIUM 145 mmol/L (136-145)
[2018-08-04] MEDS: METRONIDAZOLE 500MG/NS 100ML 100 ML IV SCH ×3 (05:42→21:48)
[2018-08-04] MEDS: AMIODARONE HCL 900 MG in DEXTROSE 5 % 500ML BOTTLE 482 ML IV SCH (05:43)
[2018-08-04] MEDS ORDERED: NITROGLYCERIN/D5W 200 MCG/ML 250 ML ONE (06:32)
[2018-08-04] MEDS: CEFEPIME 1GM/NS 0.9% 50 ML 50 ML IV SCH ×2 (08:16→21:15)
[2018-08-04] MEDS: FUROSEMIDE INJ 10 MG/ML 4 ML VIAL IV SCH ×2 (08:16→21:15)
[2018-08-04] MEDS: ASPIRIN 300 MG SUPP PR SCH (08:22)
[2018-08-04] MEDS: FAMOTIDINE 20 MG/2 ML VIAL IV SCH ×2 (08:22→16:11)
[2018-08-04] MEDS: ENOXAPARIN SOD INJ 40 MG/0.4 ML SYR SC SCH ×2 (08:22→21:15)
[2018-08-04] MEDS: AMIODARONE HCL 200 MG TAB PO SCH (10:54)
[2018-08-04] MEDS: METOPROLOL TARTRATE 50 MG TAB PO SCH ×2 (12:13→17:18)
--- NOTE | 2018-08-04 12:25 | NUR ---
Visit made by the Spiritual Care Department Pastoral Visitor, Aneesh Hall. Pt sleeping soundly and no family present. Pastoral Visitor left a card describing availability of kick boxer and instructions on how to contact a kick boxer. FRANKLIN DUCKWORTH Hydraulic Mechanic Spiritual Care Department O: [phone] Pager: [phone] ([phone] calling from)
--- NOTE | 2018-08-04 14:10 | NUR ---
Nutrition Screen Note RD Recommendation for Physician: -Continue current diet as ordered; diet texture per BUSINESS SERVICES OFFICER -Continue Ensure TID Plan of Care: RD following, monitoring for tolerance and adequacy Nutrition reason for involvement: LOS Primary Diagnose(s): 1. Acute on chronic severe systolic heart failure. 2. Encephalopathy. 3. PNA PMH: Hypertension; recently diagnosed possible myasthenia, not had a workup yet; hyperlipidemia; and chronic back pain. Ht: 62in Wt: 110.37lb BMI: 20.2kg/m2 IBW: 110lb RD Assessment: (08/04) Chart reviewed. Labs and meds reviewed. 73yo F, who [facility]. Pt was discussed during AM rounds. BUSINESS SERVICES OFFICER following. Per RYAN Castillo, pt only ate very little from her meals today but drank 100% of Ensure given. No GI symptoms reported. Unable to obtain hx from pt due AMS. No family on bedside at this time. Current diet order is appropriate. Will continue to monitor and follow. Current Diet: GI soft Malnutrition Evaluation (08/04) The patient does not meet criteria for a specified degree of malnutrition at this time. Will re-evaluate at follow-up as appropriate. Diet Education Needs Assessment: Diet education indicated, pt is not appropriate at this time. Nutrition Care Level: low Signed: May Teague, MS, RD, LD
--- NOTE | 2018-08-04 14:33 | Progress Note ---
DATE: 08/04/2018 Cardiology Progress Note SUBJECTIVE: Denies any chest pain or shortness of breath, sitting up in chair today. On telemetry, in normal sinus rhythm. OBJECTIVE: VITAL SIGNS: Reviewed. Temperature 97.6, heart rate 67, blood pressure 110/82, respiratory rate 18, O2 saturation 100% on nasal cannula. GENERAL: In no acute distress. Alert. NECK: No JVD sitting upright and supple. CHEST: Clear to auscultation bilaterally. CARDIOVASCULAR: Regular rate and rhythm. Normal S1 and S2. No S3 or S4. ABDOMEN: Soft, nontender. EXTREMITIES: Warm. Distal extremities without edema. CARDIOVASCULAR MEDICATIONS: Reviewed. Amiodarone IV drip, metoprolol 10 mg IV every 6 hours and additional 5 mg every 8 hours p.r.n., aspirin 300 mg per rectum, Lovenox 40 mg subcu q.12 hours, vancomycin and cefepime and metronidazole antibiotics. STUDIES: Reviewed. Sodium 145, potassium 4, chloride 104, bicarbonate 29, BUN 36, creatinine 0.85, glucose 116. White blood cells 5.3, hemoglobin 10, platelets 329. INR 0.96. AST 22, ALT 15, total bilirubin 0.5, alkaline phosphatase 108. ASSESSMENT: 1. Acute on chronic severe systolic heart failure. 2. Pneumonia. 3. Encephalopathy/altered mental status. 4. Paroxysmal atrial fibrillation. 5. Hypertension. 6. Deconditioning. RECOMMENDATION: 1. Evaluated for swallowing and passed test per nursery report. Switch metoprolol to 50 mg every 6 hours p.o. Switch amiodarone to 400 mg p.o. daily and aspirin 81 mg daily. Continue Lovenox subcu. 2. PT/OT evaluation. 3. At a later date, consider coronary risk stratification once the patient's condition improves. Kings Jenninsg MD AFErnestine/MODL /[id number]
[2018-08-04] MEDS: VANCOMYCIN 1GM/NS 250 ML 250 ML IV SCH (17:13)
--- NOTE | 2018-08-04 19:00 | NUR ---
Bedside report received from Anna Zielger RN. Pt resting in bed with eyes open and smiling. No signs of distress or discomfort noted at this time. Care plan reviewed, no family at the bedside during time of report.
--- NOTE | 2018-08-04 20:50 | NUR ---
Administered pts 2100 lipitor at this time with water. Pt pocketed the water for 3 minutes before swallowing. No coughing noted after swallowing. Pts daughter at the bedside and suggested giving meds with pudding and then using a coffee stir straw for water and lessening amount of water the pt receives in her mouth for swallowing. Pts daughter demonstrated with the pt and successfully avoided the pt pocketing the water. Will pass this information in next bedside report.
[2018-08-04] MEDS: ATORVASTATIN 10 MG TAB PO SCH (21:15)
--- NOTE | 2018-08-04 21:45 | NUR ---
Pt daughter leaving the pts bedside to go home. Pt resting with eyes closed, no signs of distress or discomfort noted, bed alarm engaged, call light in reach of the pt.
[2018-08-05] VITALS (14 sets, daily range): BP systolic 114–152; BP diastolic 54–77
[2018-08-05] MEDS: METRONIDAZOLE 500MG/NS 100ML 100 ML IV SCH ×3 (05:27→22:50)
[2018-08-05] MEDS: METOPROLOL TARTRATE 50 MG TAB PO SCH ×4 (05:27→18:43)
--- NOTE | 2018-08-05 07:00 | NUR ---
Bedside report given to Anna Ziegler RN. Pt resting in bed, no signs of distress noted. Care plan reviewed.
[2018-08-05] MEDS: ENOXAPARIN SOD INJ 40 MG/0.4 ML SYR SC SCH ×2 (09:27→20:35)
[2018-08-05] MEDS: FUROSEMIDE INJ 10 MG/ML 4 ML VIAL IV SCH ×2 (09:27→20:35)
[2018-08-05] MEDS: CEFEPIME 1GM/NS 0.9% 50 ML 50 ML IV SCH ×2 (09:27→20:35)
[2018-08-05] MEDS: FAMOTIDINE 20 MG/2 ML VIAL IV SCH ×2 (09:27→18:42)
[2018-08-05] MEDS: AMIODARONE HCL 200 MG TAB PO SCH (10:22)
[2018-08-05] MEDS: ASPIRIN 81 MG CHEW TAB PO SCH (10:22)
[2018-08-05] MEDS ORDERED: FLUCONAZOLE 100 MG TAB PO ONE (11:00)
--- NOTE | 2018-08-05 12:56 | NUR ---
Report called to RYAN Cheek for 207. Patient max asst up out of bed, but then ambulated with mod asst and a walker until fatigued, at which time, immediately to wheelchair. Sats 97% throughout activity. Ate bites of pureed lunch.
--- NOTE | 2018-08-05 13:23 | NUR ---
Pt arrived to room at this time, alert, transferred to unit via wheelchair with assist x1. Confusion noted. Resp WNL. IV to R wrist 20g, IV ABT Flagyl running at this time. Family at bedside. Total assist.
--- NOTE | 2018-08-05 14:47 | NUR ---
Family member called nurse/staff to room. Upon arrival, pt is unresponsive, lying in bed. Radial pulse detected. Not responsive to name or touch. Rapid response called at this time.
--- NOTE | 2018-08-05 14:50 | NUR ---
Pt resp WNL, still unresponsive. Stimulus applied. VS WNL. Rebreather administered. Dr. Phelan notified at this time regarding change in condition.
--- NOTE | 2018-08-05 14:55 | NUR ---
Pt responsive to touch. Able to localize pain with moaning/facial grimacing. VS and Resp WNL. Pt presents back to baseline. MD ordered for STAT CT head and ABG's. Orders carried out accordingly.
[2018-08-05 15:31] LABS: ABG HCO3 34 mmol/L (23-28); ABG PCO2 40 mmHg (41-51); ABG PH 7.54 (7.31-7.41); ABG PO2 354 mmHg (80-105)
--- NOTE | 2018-08-05 15:45 | Diagnostic Imaging Report ---
History:Altered mental status Comparison studies: None Technique: Axial images were obtained from the skull base to the vertex. Coronal and sagittal images reconstructed from the axial data. Dose modulation, iterative reconstruction, and/or weight based adjustment of the mA/kV was utilized to reduce the radiation dose to as low as reasonably achievable. Intravenous contrast: None Findings: Scalp/skull: No abnormalities. Extra-axial spaces: No masses. No fluid collections. Brain sulci: Moderately prominent. Ventricles: Moderate compensatory dilatation. No hydrocephalus. Parenchyma: Confluent hypodensities in the supratentorial white matter are small vessel ischemic changes. No masses, hemorrhage, acute or chronic cortical vascular insults. Sellar/suprasellar region: No abnormalities. Craniocervical junction: Patent foramen magnum. No Chiari one malformation. Incidental findings: Subtle atherosclerotic calcifications in the carotid siphons . Impression: No acute abnormalities. Chronic findings: 1. Moderate generalized volume loss. 2. Diffuse supratentorial white matter small vessel ischemic changes. Signed by: Dr. Jose R Hyde M.D. on 08/05/2018 3:41 PM
--- NOTE | 2018-08-05 16:45 | NUR ---
Pt in bed resting at this time. NC on 3LPM. Family as bedside. Pt is alert.
--- NOTE | 2018-08-05 17:55 | NUR ---
CT of brain and ABG values reported to . No new orders at this time. Continuing to monitor
--- NOTE | 2018-08-05 20:34 | Progress Note ---
DATE: 08/05/2018 Cardiology Progress Note SUBJECTIVE: Denies any chest pain or shortness of breath today; however, remains confused. Family is at bedside. OBJECTIVE: VITAL SIGNS: Reviewed and are stable. Temperature is 97.2, heart rate 70, blood pressure 117/59, respiratory rate 16, O2 saturation 100%, and BMI 21.5. GENERAL: In no acute distress. Alert. NECK: JVD elevated to mid neck. CHEST: Decreased breath sounds in bilateral bases. No acute distress. CARDIOVASCULAR: Regular rate and rhythm. Normal S1, S2. No S3 or S4. ABDOMEN: Soft. EXTREMITIES: No edema. Warm distal extremities. NEURO: Remains confused, able to respond verbally, however, confused statements are verbalized only. SKIN: Dry and intact. CARDIOVASCULAR MEDICATIONS: 1. Atorvastatin 10 mg at bedtime. 2. Furosemide 40 mg every 12 hours. 3. Amiodarone 400 mg daily. 4. Metoprolol tartrate 5 mg every 8 hours p.r.n. 5. Aspirin 81 mg daily. 6. Metoprolol tartrate 50 mg every 6 hours. 7. Cefepime and metronidazole antibiotics. STUDIES: Sodium 145, potassium 4, chloride 104, bicarbonate 29, BUN 36, creatinine 0.85, and glucose 116. White blood cells 5.3, hemoglobin 10, and platelets 329. INR 0.9. AST 22, ALT 15, alkaline phosphatase 108. ASSESSMENT: 1. Paroxysmal atrial fibrillation. 2. Acute on chronic severe systolic heart failure. 3. Type 2 myocardial infarction versus non-ST elevation myocardial infarction. 4. Pneumonia. 5. Encephalopathy. RECOMMENDATIONS: 1. Continue current cardiovascular medications. 2. Continue with diuretics and maintain low-salt diet. 3. Discussed with the patient and family members again the indication for coronary invasive assessment at some point if the patient and family are agreeable to this. Currently, given her persistent debilitated state, altered mental status, and ongoing recovery from active infection, decision remains to hold off on procedure, in agreement with the patient and family members; however, she continues to recuperate. They are agreeable to proceeding with arranged timing, was ready to proceed. Kings Jennings MD AFV/MODL /[id number]
[2018-08-05] MEDS: ATORVASTATIN 10 MG TAB PO SCH (20:35)
[2018-08-05] MEDS: MICONAZOLE NITRATE VG SCH (21:07)
[2018-08-06] VITALS (11 sets, daily range): BP systolic 129–158; BP diastolic 63–96
[2018-08-06] MEDS: METRONIDAZOLE 500MG/NS 100ML 100 ML IV SCH ×3 (06:02→21:49)
[2018-08-06] MEDS: METOPROLOL TARTRATE 50 MG TAB PO SCH ×4 (06:04→17:07)
[2018-08-06] MEDS: ASPIRIN 81 MG CHEW TAB PO SCH (09:00)
[2018-08-06] MEDS: AMIODARONE HCL 200 MG TAB PO SCH (09:00)
[2018-08-06] MEDS: FUROSEMIDE INJ 10 MG/ML 4 ML VIAL IV SCH ×2 (09:44→21:01)
[2018-08-06] MEDS: CEFEPIME 1GM/NS 0.9% 50 ML 50 ML IV SCH ×2 (09:44→21:01)
[2018-08-06] MEDS: ENOXAPARIN SOD INJ 40 MG/0.4 ML SYR SC SCH ×2 (09:44→21:01)
[2018-08-06] MEDS: FAMOTIDINE 20 MG/2 ML VIAL IV SCH ×2 (09:44→17:07)
--- NOTE | 2018-08-06 15:47 | Progress Note ---
DATE: 08/06/2018 Cardiology Progress Note SUBJECTIVE: Remains confused, however, tolerating p.o. Denies any chest pain or shortness of breath. OBJECTIVE: VITAL SIGNS: Reviewed. Temperature 97.3, heart rate 79, respiratory rate 19, O2 saturation 99%, blood pressure 154/74. GENERAL: In no acute distress, alert. Pleasantly confused. NECK: JVD lower 3rd of neck at 30 degrees of elevation. No carotid bruits. CHEST: Clear to auscultation in no distress. CARDIOVASCULAR: Regular rate and rhythm. Normal S1, S2. Systolic ejection murmur. No S3, no S4. ABDOMEN: Soft, nontender. EXTREMITIES: No edema. Warm distal extremities. SKIN: Intact. NEURO: Confused, fractured gait. MUSCULOSKELETAL: Cachectic, BMI 17.3. CARDIOVASCULAR MEDICATIONS: Reviewed. Atorvastatin 10 mg at bedtime, furosemide 40 mg every 12 hours, amiodarone 400 mg daily, metoprolol tartrate 50 mg every 6 hours and additional IV 5 mg every 8 hours, aspirin 81 mg daily, Lovenox 40 mg subcu q.12 hours, cefepime, metronidazole, and p.r.n. hydralazine 10 mg q.4 hours. LABORATORY DATA: Reviewed. Sodium 145, potassium 4, chloride 104, bicarbonate 29, BUN 36, creatinine 0.85, glucose 116. White blood cells 5.3, hemoglobin 10, platelets 329. INR 0.9. AST 22, ALT 15, alkaline phosphatase 108, total bilirubin 0.5. ASSESSMENT: 1. Acute on chronic severe systolic heart failure. 2. Paroxysmal atrial fibrillation. 3. Pneumonia. 4. Hypertension. 5. Encephalopathy. 6. Underlying dementia. 7. Cachexia. 8. Decondition. RECOMMENDATIONS: Continue current cardiovascular medications prior to discharge, would benefit from switch to Eliquis 2.5 mg every 12 hours for thromboembolic risk prevention and decreasing amiodarone to 200 mg daily. We will readdress with the patient and family members timing for coronary evaluation. This could be done as outpatient once patient is recovered and deconditioning further optimized. Await further improvement from neurologic standpoint too. Kings Jennings MD AFV/MODL /[id number]
[2018-08-06] MEDS ORDERED: ACETAMINOPHEN 325 MG TAB PO PRN (18:30)
--- NOTE | 2018-08-06 19:10 | NUR ---
16Fr spaulding removed at this time per MD order.
--- NOTE | 2018-08-06 19:11 | Diagnostic Imaging Report ---
Examination: Single AP view of the chest. COMPARISON: None. INDICATION: Congestive heart failure DISCUSSION: Lines/tubes: None. Lungs: The lungs are well inflated and clear. No pneumonia or pulmonary edema. Pleura: No pleural effusion or pneumothorax. Heart and mediastinum: The heart and the mediastinum are unremarkable. Bones and soft tissues: No acute bony abnormalities. IMPRESSION: 1. No acute cardiopulmonary abnormalities. Signed by: Dr. Jayme Smith M.D. on 08/06/2018 7:08 PM
[2018-08-06] MEDS: MICONAZOLE NITRATE VG SCH (21:01)
[2018-08-06] MEDS: ATORVASTATIN 10 MG TAB PO SCH (21:01)
--- NOTE | 2018-08-06 22:27 | NUR ---
Received bedside shift report from dayshift RN. Bed is low, alarm on with side rails up x2. The patient is not in distress. Family member at bedside. The patient observed with AMS.
[2018-08-07] VITALS (8 sets, daily range): BP systolic 114–163; BP diastolic 53–75
[2018-08-07 04:49] LABS: BASOPHILS % 0.6 % (0.0-1.0); EOSINOPHILS # (AUTO) 0.2 (0.0-0.4); EOSINOPHILS % 3.7 % (0.0-6.0); HEMATOCRIT 35.5 % (34.2-44.1); HEMOGLOBIN 10.6 g/dL (12.0-16.0); LYMPHOCYTES # (AUTO) 1.3 (1.0-3.2); LYMPHOCYTES % 20.3 % (18.0-39.1); MEAN CORPUSCULAR HEMOGLOBIN 25.7 pg (28-32); MEAN CORPUSCULAR HGB CONC 29.9 g/dL (31-35); MEAN CORPUSCULAR VOLUME 86.2 fL (81-99); MONOCYTES # (AUTO) 0.7 (0.2-0.8); MONOCYTES % 11.4 % (4.4-11.3); NEUTROPHILS # (AUTO) 4.1 (2.1-6.9); NEUTROPHILS % 62.6 % (38.7-80.0); PLATELET COUNT 334 x10e3/uL (140-360); RED BLOOD COUNT 4.12 x10e6/uL (3.6-5.1); RED CELL DISTRIBUTION WIDTH 15.9 % (11.7-14.4)
[2018-08-07 05:10] LABS: ALBUMIN 2.7 g/dL (3.5-5.0); ALBUMIN/GLOBULIN RATIO 0.8 (0.8-2.0); ANION GAP 13.1 mmol/L (8-16); CREATININE, SERUM 0.94 mg/dL (0.57-1.11); POTASSIUM 3.1 mmol/L (3.5-5.1)
[2018-08-07] MEDS: METRONIDAZOLE 500MG/NS 100ML 100 ML IV SCH ×3 (05:32→22:40)
[2018-08-07] MEDS: METOPROLOL TARTRATE 50 MG TAB PO SCH ×4 (05:32→17:38)
--- NOTE | 2018-08-07 05:32 | NUR ---
RN woke the the patient to take the medication Lopressor. The patient took the pill in her mouth and drank some of the thicken water. RN observed the patient swallowed the pill and the water.
--- NOTE | 2018-08-07 07:00 | NUR ---
RCD PT AT BED PT IS CONFUSED AND TRYING TO CAME OUT OF BED FAMILY AT BED SIDE IV PATENT BED LOW AND LOCKED CALL LIGHT IN REACH
--- NOTE | 2018-08-07 08:00 | NUR ---
Patient's daughter leaving the bedside to go home. Patient is resting with eyes closed, no signs of distress or discomfort noted, bed alarm engaged, bed is also low, call light in reach of patient will continue to monitor.
[2018-08-07] MEDS: AMIODARONE HCL 200 MG TAB PO SCH (09:00)
[2018-08-07] MEDS: ENOXAPARIN SOD INJ 40 MG/0.4 ML SYR SC SCH ×2 (09:00→21:30)
[2018-08-07] MEDS: FUROSEMIDE INJ 10 MG/ML 4 ML VIAL IV SCH ×2 (09:00→21:30)
[2018-08-07] MEDS: FAMOTIDINE 20 MG/2 ML VIAL IV SCH ×2 (09:00→17:37)
[2018-08-07] MEDS: ASPIRIN 81 MG CHEW TAB PO SCH (09:00)
[2018-08-07] MEDS: CEFEPIME 1GM/NS 0.9% 50 ML 50 ML IV SCH ×2 (09:00→21:30)
[2018-08-07] MEDS ORDERED: POTASSIUM CHLORIDE 20 MEQ TAB CR PO NR (09:30)
--- NOTE | 2018-08-07 09:54 | NUR ---
PT WENT TO PROCEDURE IN SAFE CONDITION
--- NOTE | 2018-08-07 12:39 | NUR ---
FAXED CLINICALS TO [facility], FILLED OUT RTF FOR COMPLETION OF TRANSFER WHEN GET ROOM NUMBER
--- NOTE | 2018-08-07 13:42 | Diagnostic Imaging Report ---
EXAM: Modified barium swallow with Speech Pathologist INDICATION: ^silent aspiration ^[id number] ^1010 ^Y COMPARISON: None available. RADIATION DOSE: Fluoroscopy Time: 1.2 min Dose (Kerma) Area Product: 0.23 Gycm2 Air Kerma (AK) value has been reviewed. It is below the limits set by the Radiation Protocol Committee (RPC) committee. FINDINGS: See impression IMPRESSION: No evidence of penetration or aspiration. Please see speech pathology report for detailed description and recommendations. Signed by: Dr. Gab Prater M.D. on 08/07/2018 1:39 PM
--- NOTE | 2018-08-07 15:37 | NUR ---
A/C TO [facility]IL[facility] TESTER PAGED TO DR DAO TO CLARIFY HOW BRAYDEN THE PT NEED IV ANTIBIOTICS IF IT LONG DAYS THEY REQUESTING PICC LINE
--- NOTE | 2018-08-07 15:46 | NUR ---
FACILITY CALLED AND ASKED IF RECTAL TUBE OR SALINAS STILL IN PT, CONFIRMED THROUGH NURSE CHRISTIAN IT IS NOT., THEN FACILITY ASKED IF WE CAN PUT IN PIC LINE, CHRISTIAN WILL ASK AND SEE IF WE CAN THEN CAN GET AUTH SOON LET KNOW ANSWER.
--- NOTE | 2018-08-07 15:50 | NUR ---
DR DAO RETURNED CALL HE SAID CALL DR KAMARA
--- NOTE | 2018-08-07 16:00 | NUR ---
PAGED DR KAMARA AND LEFT THE MESSAGE
--- NOTE | 2018-08-07 16:12 | Progress Note ---
DATE: 08/07/2018 Cardiology Progress Note SUBJECTIVE: Denies chest pain or shortness of breath. OBJECTIVE: VITAL SIGNS: Reviewed. Temperature 98.5, heart rate 69, blood pressure 145/66, respiratory rate 16, O2 saturation 99%. GENERAL: In no acute distress, confused, repeating intelligible phrases. NECK: No JVD. CHEST: Clear to auscultation bilaterally. CARDIOVASCULAR: Regular rate and rhythm. Normal S1, S2. No S3 or S4. ABDOMEN: Soft. EXTREMITIES: No edema. Warm distal extremities. CARDIOVASCULAR MEDICATIONS: Reviewed. Atorvastatin 10 mg at bedtime, amiodarone 400 mg daily, furosemide 40 mg IV every 12 hours, metoprolol tartrate 50 mg every 6 hours and additional IV p.r.n. 5 mg every 8 hours, aspirin 81 mg daily, Lovenox 40 mg subcu q.12 hours, cefepime, metronidazole, and hydralazine p.r.n. 10 mg every 4 hours. LABORATORY DATA: Studies reviewed. Sodium 148, potassium 3.1, chloride 102, bicarbonate 36, BUN 39, creatinine 0.94, glucose 135. White count 6.5, hemoglobin 10.6, platelets 334. INR 0.96. AST 17, ALT 7, alkaline phosphatase 98, total bilirubin 0.4. ASSESSMENT: 1. Paroxysmal atrial fibrillation. 2. Acute on chronic severe systolic heart failure. 3. Pneumonia. 4. Hypertension. 5. Dementia. 6. Encephalopathy. RECOMMENDATIONS: 1. At this point, mental status issues seems to be persistent and likely related to dementia. She is tolerating p.o. and remains debilitated and cachectic. I discussed with the patient and her family members coronary invasive evaluation of possible intervention either this week or upon discharge to follow up as outpatient to schedule once rehab and recovery from acute illness completed. For now continue current cardiovascular medications. 2. KCl 40 mEq p.o. x1 today, divided 20 mEq every 2 hours. 3. If decision is made for discharge, advised upon discharge decreasing amiodarone to 200 mg once a day and switching from Lovenox to Eliquis 2.5 mg every 12 hours. Kings Jennings MD AFV/MODL /[id number]
[2018-08-07] MEDS: FAMOTIDINE 20 MG TAB PO SCH (17:00)
--- NOTE | 2018-08-07 17:30 | NUR ---
Spoke with pt's son at bedside. Informed him of Medicare Rights. He verbalized understanding. Signed copy placed in chart. Copy to pt's son. Informed him that Dr. Phelan plans to DC tomorrow.
--- NOTE | 2018-08-07 18:42 | NUR ---
PT RESTING ON BED BED SIDE REPORT GIVEN TO ONCOMING NURSE
[2018-08-07] MEDS: ATORVASTATIN 10 MG TAB PO SCH (21:00)
[2018-08-07] MEDS: MICONAZOLE NITRATE VG SCH (21:30)
--- NOTE | 2018-08-07 21:30 | NUR ---
PATIENT REFUSING TO TAKE PO MEDICATIONS. PATIENT IS STILL CONFUSED AND TRIED TO GET HER BE ALERT WHILE TAKING IT. Addendum: 08/08/18 at 0303 by Maico Ritter RN PATIENT IS OTHERWISE RESTING COMFORTABLY AND SHOWING NO SIGN OF DISTRESS. WILL FURTHER MONITOR.
[2018-08-08] VITALS: BP 133/67
--- NOTE | 2018-08-08 02:58 | NUR ---
UPON MAKING ROUNDS PATIENT IS RESTING COMFORTABLY, EYES ARE CLOSED. BED ALARM IS ENGAGED AND BED IS IN LOW POSITION. PATIENT IS SHOWING NO SIGNS OF DISTRESS, CALL LIGHT WITHIN REACH WILL CONTINUE TO MONITOR.
[2018-08-08 04:45] VITALS: BP 133/62
[2018-08-08] MEDS: METRONIDAZOLE 500MG/NS 100ML 100 ML IV SCH (05:10)
[2018-08-08] MEDS: METOPROLOL TARTRATE 50 MG TAB PO SCH ×2 (06:00)
--- NOTE | 2018-08-08 06:22 | NUR ---
PATIENT IS STILL REFUSING PO MEDICATION FOR BLOOD PRESSURE. WAS NOT ABLE TO GET HER ALERT ENOUGH TO TAKE MEDICATION SHE IS ON SWALLOW PRECAUTIONS. BLOOD PRESSURE IS AT STABLE RANGE WILL CONTINUE TO MONITOR.
[2018-08-08 07:30] VITALS: BP 130/62
--- NOTE | 2018-08-08 07:30 | NUR ---
REC'D PT AAOX1, PT CONFUSED, DAUGHTER AT BEDSIDE. PT ON RA WITHOUT NO S/S OF DISTRESS. WALKER AT BEDSIDE. BED IN LOWEST POSITION, SIDE RAILS UP X2, AND CALL SINCLAIR WITHIN REACH.
[2018-08-08 07:56] VITALS: BP 130/62
--- NOTE | 2018-08-08 08:18 | NUR ---
FACILITY CALLED AND ASKED FOR PIC LINE TO BE PUT IN TO ASSIST FACILITY IN GETTING ABX. CALLED AND LEFT MESSAGE FOR DR LIMA TO PLEASE RETURN CALL LAST NIGHT TO ASSIST WITH THIS AND DID NOT GET A CALL BACK. SPOKE WITH NURSE WELL. WAITING ON THIS TO HAPPEN TO GET DISCHARGE.
[2018-08-08] MEDS: AMIODARONE HCL 200 MG TAB PO SCH (09:51)
[2018-08-08] MEDS: FAMOTIDINE 20 MG TAB PO SCH (09:51)
[2018-08-08] MEDS: ENOXAPARIN SOD INJ 40 MG/0.4 ML SYR SC SCH (09:51)
[2018-08-08] MEDS: ASPIRIN 81 MG CHEW TAB PO SCH (09:51)
[2018-08-08] MEDS ORDERED: SODIUM CHLORIDE 0.9% 250ML 250 ML ONE (10:06)
[2018-08-08] MEDS: FUROSEMIDE INJ 10 MG/ML 4 ML VIAL IV SCH (10:41)
[2018-08-08] MEDS: CEFEPIME 1GM/NS 0.9% 50 ML 50 ML IV SCH (10:41)
[2018-08-08 11:04] VITALS: BP 142/65
--- NOTE | 2018-08-08 13:10 | NUR ---
PT IV DISCONTINUED. NO COMPLICATIONS TO IV SITE AFTER REMOVAL. BELONGINGS GATHERED UP. NO S/S OF DISTRESS. PT ON RA. TRANSFERRED PT DOWNSTAIRS VIA WHEELCHAIR. DAUGHTER TOOK PT TO [facility]. DISCHARGE PAPERWORK PROVIDED TO PT AND DAUGHTER.
--- NOTE | 2018-08-09 06:11 | Discharge Summary ---
HOSPITAL COURSE: A 73-year-old female patient, admitted with shortness of breath, altered mental status, lethargy. The patient was diagnosed with pneumonia, sepsis, non-Q-wave myocardial infarction, congestive heart failure with decompensation, atrial fibrillation. So, she was treated with IV antibiotics and amiodarone IV drip. Her echo revealed EF of 30%, which was down from 50% done recently. She was seen by Infectious Disease specialist. She had an ultrasound of the gallbladder showing sludge. HIDA scan was negative for duct obstruction; however, EF was decreased. She improved with metronidazole and cefepime. She received physical therapy. She had a swallow evaluation. She is able to tolerate pureed and nectar thickened liquids. She is still weak and confused. The [facility] will be [facility] to the [facility]. DISCHARGE DIAGNOSES: Pneumonia, encephalopathy, non-Q-wave myocardial infarction, acute systolic dysfunction of the heart, EF of 30%, metabolic encephalopathy, hypokalemia, atrial fibrillation, deconditioning, dysphagia, altered mental status. MD ISELA Luna/MODL /[id number]
== END 2018-08-08 13:22 | DRG 871 ==
LOC: ER 16:07 → EDSEX 16:07 → ERHOLD 19:18 → ICU 20:22 → MED/SURG2 08-05 13:15
PROVIDERS: ADMIT Internal Medicine; ATTEND Internal Medicine
DX: A41.9 Sepsis, unspecified organism (principal); I21.4 Non-ST elevation (NSTEMI) myocardial infarction; J15.9 Unspecified bacterial pneumonia; G93.41 Metabolic encephalopathy; I50.23 Acute on chronic systolic (congestive) heart failure; N39.0 Urinary tract infection, site not specified; Z68.1 Body mass index [BMI] 19.9 or less, adult; E44.0 Moderate protein-calorie malnutrition; E87.2 Acidosis; R73.9 Hyperglycemia, unspecified; Z87.440 Personal history of urinary (tract) infections; E78.5 Hyperlipidemia, unspecified; D64.9 Anemia, unspecified; M54.9 Dorsalgia, unspecified; N81.89 Other female genital prolapse; G70.9 Myoneural disorder, unspecified; I11.0 Hypertensive heart disease with heart failure; I48.0 Paroxysmal atrial fibrillation; E87.6 Hypokalemia; E83.42 Hypomagnesemia; R53.81 Other malaise; F03.90 Unspecified dementia, unspecified severity, without behavioral disturbance, psychotic disturbance, mood disturbance, and anxiety
CPT/HCPCS: 36415; 36600; 51700; 70450; 71045; 72193; 74230; 76705; 78227; 80048; 80053; 81001; 82140; 82550; 82553; 82805; 82948; 83605; 83735; 83880; 84100; 84132; 84443; 84484; 85025; 85610; 85730; 86850; 86870; 86880; 86900; 86905; 87040; 87071; 87086; 87205; 87400; 93005; 93306; 96372; 97139; 99001; 99285; A9537; J0360; J0692; J1650; J1940; J3370; J3475; J3480; J7030; J7040; J7050; Q9967